=== PATIENT | male | born 1990 | race Caucasian/White ===

== ENCOUNTER 2018-05-06 22:25 | Emergency (ER) | payer SELFPAY ==
[~2018-05-06] VITALS: Ht 180.3 cm; Wt 204.1 kg
[~2018-05-06 22:25] MED LIST: CEFD300C3 PO; NF-ESOM40C PO; PROM5SYR PO
--- OUTSIDE RECORDS SUMMARY | 2018-05-06 22:29 | XMS REPORT ---
Author Author ISHA GHOSH [facility] Address Unknown Care Team Providers Care Manager Home Name Role Phone ISHA GHOSH Unavailable PROBLEMS Type Condition ICD9-CM Code OCO32-WS Code Onset Dates Condition Status SNOMED Code Problem Gastroesophageal reflux disease, esophagitis presence not specified K21.9 Active 993709182 Problem MENINGOCOCCAL DX V03.89 Active 58655789 ALLERGIES No Known Allergies ENCOUNTERS Encounter Location Date Diagnosis [facility] [id number] [place] [id number] Jan, [facility] [id number] [place] [address] [phone] Nov, Dental examination Z01.20 and Caries K02.9 [facility] [id number] [place] [phone] May, Dental examination Z01.20 [facility] [address] [phone] Oct, Gastroesophageal reflux disease, esophagitis presence not specified K21.9 [facility] [id number] [place] [phone] Sep, IMMUNIZATIONS No Known Immunizations SOCIAL HISTORY Never Assessed REASON FOR VISIT PAIN/twest PLAN OF CARE Activity Details Follow Up prn Reason:te #1 VITAL SIGNS Height 71 in 2017-12-17 Blood pressure systolic 138 mmHg 2017-12-17 Blood pressure diastolic 86 mmHg 2017-12-17 MEDICATIONS Medication Instructions Dosage Frequency Start Date End Date Duration Status Nexium 40 mg Orally Once a day, ac 1 capsule Oct, Not- Taking Prilosec OTC 20 MG Orally Once a day 2 tablets 24h Not-Taking Excedrin Migraine 250-250-65 MG Orally every 6 hrs 2 tablets as needed 6h Not-Taking RESULTS No Results PROCEDURES Procedure Date Ordered Result Body Site LTD ORAL EVALUATION - PROBLEM FOCUS Dec 17, 2017 INTRAORL-PERIAPICAL 1 FILM 45121 Dec 17, 2017 PANORAMIC FILM SEE ALSO CODE 04139 Dec 17, 2017 INSTRUCTIONS MEDICATIONS ADMINISTERED No Known Medications MEDICAL (GENERAL) HISTORY Type Description Date Surgical History No Surgical history information
--- OUTSIDE RECORDS SUMMARY | 2018-05-06 22:29 | XMS REPORT ---
Author Author AUGIE ISHA [facility] Address Unknown Care Team Providers Care Singing Teacher Name Role Phone ISHA GHOSH Unavailable PROBLEMS Type Condition ICD9-CM Code SEC62-[place] Code Onset Dates Condition Status SNOMED Code Problem Gastroesophageal reflux disease, esophagitis presence not specified K21.9 Active 584561875 Problem MENINGOCOCCAL DX V03.89 Active [id number] ALLERGIES No Known Allergies ENCOUNTERS Encounter Location Date Diagnosis [facility] [address] [phone] Jan, Caries K02.9 [facility] [address] [id number] Nov, Dental examination Z01.20 and Caries K02.9 [facility] [phone] [place] [phone] May, Dental examination Z01.20 [facility] [address] [phone] Oct, Gastroesophageal reflux disease, esophagitis presence not specified K21.9 [facility] [id number] [place] [address] [phone] Sep, IMMUNIZATIONS No Known Immunizations SOCIAL HISTORY Never Assessed REASON FOR VISIT TE #/ PLAN OF CARE Activity Details Follow Up prn Reason:shikha VITAL SIGNS Height 71 in 2018-01-28 Blood pressure systolic 120 mmHg 2018-01-28 Blood pressure diastolic 79 mmHg 2018-01-28 MEDICATIONS Medication Instructions Dosage Frequency Start Date End Date Duration Status Nexium 40 mg Orally Once a day, ac 1 capsule Oct, Not- Taking Prilosec OTC 20 MG Orally Once a day 2 tablets 24h Not-Taking Excedrin Migraine 250-250-65 MG Orally every 6 hrs 2 tablets as needed 6h Not-Taking RESULTS No Results PROCEDURES Procedure Date Ordered Result Body Site EXTRAC ERUPTED TOOTH/EXPOSED ROOT Jan 28, 2018 INSTRUCTIONS MEDICATIONS ADMINISTERED No Known Medications MEDICAL (GENERAL) HISTORY Type Description Date Surgical History No Surgical history information
--- OUTSIDE RECORDS SUMMARY | 2018-05-06 22:29 | XMS REPORT ---
Author JOSLYN Camacho [facility] eClinicalWorks Address Unknown Phone Unavailable Care Team Providers Care Research Engineer Name Role Phone JOSLYN THORNE CP Unavailable Allergies, Adverse Reactions, Alerts Substance Reaction Event Type N.K.D.A. Info Not Available Non Drug Allergy Problems Problem Type Condition Code Onset Dates Condition Status Problem MENINGOCOCCAL DX V03.89 Active Assessment Gastroesophageal reflux disease, esophagitis presence not specified K21.9 Active Problem Gastroesophageal reflux disease, esophagitis presence not specified K21.9 Active Medications Medication Code System Code Instructions Start Date End Date Status Dosage Excedrin Migraine [facility] [address]-07 250-250-65 MG Orally every 6 hrs 2 tablets as needed Nystatin [facility] [address]-87 - not defined Nexium [facility] [address]-35 40 mg Orally Once a day, ac Oct 29, 2015 1 capsule Prilosec OTC [facility] [address] 20 MG Orally Once a day 2 tablets Procedures Procedure Coding System Code Date Office Visit, New Pt., Level 2 CPT-4 48333 Oct 29, 2015 Vital Signs Date/Time: Oct 29, 2015 Cardiac Monitoring Heart Rate 92 bpm Weight 456.3 lbs Height 71 in BMI 63.63 Index Blood Pressure Diastolic 78 mmHg Blood Pressure Systolic 135 mmHg Results No Known Results Summary Purpose eClinicalWorks Submission
--- NOTE | 2018-05-06 23:15 | NUR ---
PT REFUSES IV INSERTION.
--- NOTE | 2018-05-06 23:37 | ED Abdominal Pain ---
General Chief Complaint: Abdominal/GI Problems Stated Complaint: LOWER LEFT SIDED ABD PAIN Source of Information: Patient, Family ([id number]) Exam Limitations: No Limitations History of Present Illness Date Seen by Provider: May 06, 2018 Time Seen by Provider: 23:20 Initial Comments Patient presents to ER by private conveyance with chief complaint that today he' s been having difficulty having a bowel movement and having a little left-sided abdominal pain so he took a laxative around 7:00 at night and had a small amount of stool passed but not significant. He's had some nausea and dry heaves around 8:00. He said he was having quite a bit of pain that had him curled up in a ball in his bed but after he laid down for a while it got better so he decided to come in because the pain was not letting up. He says he's has abdominal pain secondary to constipation and does have irritable bowel syndrome but this is nothing like that. He has no history of kidney stone. Pains worse with movement. Right now he rates it as about a 1 out of 10 when he sits still. No painful urination or hematuria. No fevers or chills. No nausea presently. No history of abdominal surgeries, colonoscopies. He did take 2 ibuprofen about an hour or 2 before coming in and says that his pain is improving now. Allergies and Home Medications Allergies Coded Allergies: No Known Drug Allergies (Unverified , 11/24/15) Home Medications Cefdinir 300 Mg Capsule, 300 MG PO BID Prescribed by: GUIDO GIRALDO on 11/24/152115 Promethazine HCl/Codeine 5 Ml Syrup, 5 ML PO Q6H PRN for COUGH Prescribed by: GUIDO GIRALDO on 11/24/152115 Patient Home Medication List Home Medication List Reviewed: Yes Review of Systems Review of Systems Constitutional: No chills, No fever, No malaise EENTM: No Blurred Vision, No Double Vision Respiratory: Denies Cough, Denies Shortness of Air Cardiovascular: Denies Chest Pain, Denies Edema Gastrointestinal: Abdominal Pain, Constipated; Denies Diarrhea; Nausea; Denies Poor Fluid Intake, Denies Vomiting Genitourinary: Denies Burning, Denies Discharge, Denies Drainage Musculoskeletal: No back pain, No joint pain Past Agxbihy-Zehuja-Tfhuat Hx Patient Social History Alcohol Use: Denies Use Recreational Drug Use: No Smoking Status: Never a Smoker Recent Foreign Travel: No Contact w/Someone Who Travel: No Recent Hopitalizations: No Seasonal Allergies Seasonal Allergies: No Past Medical History Reproductive Disorders: No Gastroesophageal Reflux Physical Exam Vital Signs Capillary Refill : Height/Weight/BMI Height: 5'11" Weight: 456lbs. oz. 206.389618zp; BMI Method:Stated General Appearance: mild distress, obese (morbid) HEENT: PERRL/EOMI, pharynx normal Respiratory: chest non-tender, lungs clear, normal breath sounds, no respiratory distress, no accessory muscle use Cardiovascular: normal peripheral pulses, regular rate, rhythm, no edema Peripheral Pulses: 2+ Radial Pulses (R), 2+ Radial Pulses (L) Gastrointestinal: normal bowel sounds, non tender, soft Back: normal inspection, CVA tenderness (L) Neurologic/Psychiatric: alert, oriented x 3 Skin: normal color, warm/dry Focused Exam Lactate Level 05/07/18 00:00: Lactic Acid Level 1.60 Lactic Acid Level Laboratory Tests Test 05/07/18 00:00 Lactic Acid Level 1.60 MMOL/L (0.50-2.00) Progress/Results/Core Measures Results/Orders Lab Results Laboratory Tests Test 05/06/18 23:15 05/06/18 23:29 05/07/18 00:00 05/07/18 00:10 Range/Units Urine Color YELLOW Urine Clarity CLEAR Urine pH 5 5-9 Urine Specific [place] 1.030 H 1.016-1.022 Urine Protein 2+ H NEGATIVE Urine Glucose (UA) NEGATIVE NEGATIVE Urine Ketones NEGATIVE NEGATIVE Urine Nitrite NEGATIVE NEGATIVE Urine Bilirubin NEGATIVE NEGATIVE Urine Urobilinogen NORMAL NORMAL MG/DL Urine Leukocyte Esterase NEGATIVE NEGATIVE Urine RBC (Auto) 5+ H NEGATIVE Urine RBC 10-25 H /HPF Urine WBC NONE /HPF Urine Squamous Epithelial Cells 2-5 /HPF Urine Crystals NONE /LPF Urine Bacteria NEGATIVE /HPF Urine Casts NONE /LPF Urine Mucus LARGE H /LPF Urine Culture Indicated CULTURE PENDING White Blood Count 12.4 H 4.3-11.0 10^3/uL Red Blood Count 5.50 4.35-5.85 10^6/uL Hemoglobin 15.7 13.3-17.7 G/DL Hematocrit 46 40-54 % Mean Corpuscular Volume 84 80-99 FL Mean Corpuscular Hemoglobin 29 25-34 PG Mean Corpuscular Hemoglobin Concent 34 32-36 G/DL Red Cell Distribution Width 14.4 10.0-14.5 % Platelet Count 250 130-400 10^3/uL Mean Platelet Volume 13.1 H 7.4-10.4 FL Neutrophils (%) (Auto) 81 H 42-75 % Lymphocytes (%) (Auto) 13 12-44 % Monocytes (%) (Auto) 6 0-12 % Eosinophils (%) (Auto) 0 0-10 % Basophils (%) (Auto) 0 0-10 % Neutrophils # (Auto) 10.0 H 1.8-7.8 X 10^3 Lymphocytes # (Auto) 1.6 1.0-4.0 X 10^3 Monocytes # (Auto) 0.7 0.0-1.0 X 10^3 Eosinophils # (Auto) 0.0 0.0-0.3 10^3/uL Basophils # (Auto) 0.0 0.0-0.1 10^3/uL Sodium Level 140 135-145 MMOL/L Potassium Level 4.3 3.6-5.0 MMOL/L Chloride Level 107 98-107 MMOL/L Carbon Dioxide Level 17 L 21-32 MMOL/L Anion Gap 16 H 5-14 MMOL/L Blood Urea Nitrogen 18 7-18 MG/DL Creatinine 1.30 0.60-1.30 MG/DL Estimat Glomerular Filtration Rate > 60 BUN/Creatinine Ratio 14 Glucose Level 124 H 70-105 MG/DL Calcium Level 10.1 8.5-10.1 MG/DL Corrected Calcium 9.7 8.5-10.1 MG/DL Total Bilirubin 0.5 0.1-1.0 MG/DL Aspartate Amino Transf (AST/SGOT) 29 5-34 U/L Alanine Aminotransferase (ALT/SGPT) 41 0-55 U/L Alkaline Phosphatase 56 40-136 U/L Total Protein 8.2 6.4-8.2 GM/DL Albumin 4.5 3.2-4.5 GM/DL Lactic Acid Level 1.60 0.50-2.00 MMOL/L Prothrombin Time 13.4 12.2-14.7 SEC INR Comment 1.0 0.8-1.4 Activated Partial Thromboplast Time 29 24-35 SEC My Orders Orders - EMMETT RANGEL Cbc With Automated Diff (05/06/18 23:28) Comprehensive Metabolic Panel (05/06/18 23:28) Blood Culture (05/06/18 23:28) Sputum Culture (05/06/18 23:28) Urinalysis (05/06/18 23:28) Urine Culture (05/06/18 23:28) Protime With Inr (05/06/18 23:28) Partial Thromboplastin Time (05/06/18 23:28) Chest 1 View, Ap/Pa Only (05/06/18 23:28) Saline Lock/Iv-Start (05/06/18 23:28) Saline Lock/Iv-Start (05/06/18 23:28) Vital Signs Adult Sepsis Patie Q15M (05/06/18 23:28) O2 (05/06/18 23:28) Remove Rings In Anticipation O (05/06/18:28) Lactic Acid Analyzer (05/06/18 23:28) Influenza A And B Antigens (05/06/18 23:28) Ct Abd/Pelvis Wo(Kidney Stone) (05/07/18 00:01) Progress Progress Note : Time: 23:58 Progress Note Tachycardia and borderline white count so I get a septic workup. Abdomen is benign but I suspect a kidney stone is the source of his symptoms. We'll get a CT of the abdomen and pelvis without contrast. He has refused an IV so we cannot give him IV fluids. He does not have a low blood pressure nor does he appear to be clinically dry. Diagnostic Imaging Diagonstic Imaging: Xray Plain Films/CT/US/NM/MRI: chest (1v) Comments No acute cardiopulmonary process noted. Reviewed: Reviewed by Me Diagonstic Imaging: CT (noncontrasted kidney stone study) Plain Films/CT/US/NM/MRI: abdomen, pelvis Comments Mild obstructive uropathy on the left secondary to 3.5-4 mm left mid ureteral calculus. Reviewed: Reviewed by Me Departure Impression Primary Impression: Left ureteral calculus Disposition: HOME, SELF-CARE Condition: Stable Departure-Patient Inst. Decision time for Depature: 01:10 Referrals: NO,LOCAL PHYSICIAN (PCP) Primary Care Physician STEFANO DESOUZA MD Patient Instructions: Kidney Stones (DC) Add. Discharge Instructions: Drink lots of fluids. Caffeine is okay. Use ibuprofen 800 mg every 8 hours as needed for pain in addition to the hydrocodone one tablet every 6 hours as needed for pain. Take the Flomax 1 tablet every night until the stone passes. Use the Keflex, antibiotic 1 tablet twice a day with food for the next week to prevent infection. Follow-up with Dr. Desouza, urology in the clinic by calling tomorrow morning for an appointment. Take one tablet of Zofran place it on the tongue every 6 hours as needed for nausea or vomiting. Strain all urine to see if you can catch the stone. Sometimes the stone will breakup into a fine sand and you'll miss it but the painful urination and flank pain should go away in one to 2 days after the stone passes. All discharge instructions reviewed with patient and/or family. Voiced understanding. Scripts Tamsulosin HCl (Flomax) 0.4 Mg Cap 0.4 MG PO HS for 7 Days, #7 CAP 0 Refills Prov: EMMETT RANGEL 05/07/18 Ondansetron (Ondansetron Odt) 4 Mg Tab.rapdis 4 MG PO Q6H PRN for NAUSEA/VOMITING, #12 TAB 0 Refills Prov: EMMETT RANGEL 05/07/18 Hydrocodone Bit/Acetaminophen (Hydrocodone/Acetaminophen 5/325mg Tablet) 1 Tab Tab 1-2 EACH PO Q6H PRN for BREAKTHROUGH PAIN MDD 10, #15 TAB 0 Refills Prov: EMMETT RANGEL 05/07/18 Cephalexin (Cephalexin) 500 Mg Tablet 500 MG PO BID for 7 Days, #14 TAB 0 Refills Prov: EMMETT RANGEL 05/07/18 Copy Copies To 1: STEFANO DESOUZA MD, TITUS J May 06, 2018 23:37
[2018-05-06 23:40] LABS: BASOPHILS % (AUTO) 0 % (0-10); EOSINOPHILS % (AUTO) 0 % (0-10); HEMATOCRIT 46 % (40-54); HEMOGLOBIN 15.7 G/DL (13.3-17.7); LYMPHOCYTES # (AUTO) 1.6 X 10^3 (1.0-4.0); LYMPHOCYTES % (AUTO) 13 % (12-44); MEAN CORPUSCULAR HEMOGLOBIN 29 PG (25-34); MEAN CORPUSCULAR HGB CONC 34 G/DL (32-36); MEAN CORPUSCULAR VOLUME 84 FL (80-99); MEAN PLATELET VOLUME 13.1 FL (7.4-10.4); MONOCYTES # (AUTO) 0.7 X 10^3 (0.0-1.0); MONOCYTES % (AUTO) 6 % (0-12); NEUTROPHILS % (AUTO) 81 % (42-75); PLATELET COUNT 250 10^3/uL (130-400); RED CELL DISTRIBUTION WIDTH 14.4 % (10.0-14.5); WHITE BLOOD COUNT 12.4 10^3/uL (4.3-11.0)
[2018-05-06 23:41] LABS: BILIRUBIN,URINE NEGATIVE (NEGATIVE); CLARITY,URINE CLEAR; COLOR,URINE YELLOW; GLUCOSE, URINE (UA) NEGATIVE (NEGATIVE); KETONES,URINE NEGATIVE (NEGATIVE); LEUKOCYTE ESTERASE ,URINE NEGATIVE (NEGATIVE); NITRITE,URINE NEGATIVE (NEGATIVE); PH,URINE 5 (5-9); PROTEIN,URINE 2+ (NEGATIVE); UROBILINOGEN,URINE NORMAL (NORMAL)
[2018-05-06 23:48] LABS: BACTERIA,URINE NEGATIVE /HPF
[2018-05-07 00:01] LABS: ALANINE AMINOTRANSFERASE 41 U/L (0-55); ALBUMIN 4.5 GM/DL (3.2-4.5); ALKALINE PHOSPHATASE 56 U/L (40-136); BILIRUBIN,TOTAL 0.5 MG/DL (0.1-1.0); BUN/CREATININE RATIO 14; CALCIUM 10.1 MG/DL (8.5-10.1); CARBON DIOXIDE 17 MMOL/L (21-32); CHLORIDE 107 MMOL/L (98-107); GFR ESTIMATED > 60; GLUCOSE 124 MG/DL (70-105); POTASSIUM 4.3 MMOL/L (3.6-5.0); SODIUM 140 MMOL/L (135-145); TOTAL PROTEIN 8.2 GM/DL (6.4-8.2)
[2018-05-07 00:28] LABS: PROTHROMBIN TIME PATIENT 13.4 SEC (12.2-14.7)
[2018-05-07] MEDS ORDERED: cefTRIAXone FOR IV USE 1,000 MG in WATER (STERILE) FOR INJECTION 10 ML IV ONE (01:15)
[2018-05-07] MEDS ORDERED: TAMS0.4C98 PO (01:19)
[2018-05-07] MEDS ORDERED: ONDA4TAB11 PO (01:19)
[2018-05-07] MEDS ORDERED: CEPH500T PO (01:19)
[2018-05-07] MEDS ORDERED: ACHD5005 PO (01:19)
[2018-05-07] MEDS ORDERED: cefTRIAXone 1,000 MG/2.86 ml vial (IM ONLY) ONE (01:23)
[2018-05-07] MEDS ORDERED: RX-HYDROCODONE/APAP 5/325 MG #4 TAB PK PO PRN (01:30)
[2018-05-07] MEDS ORDERED: LIDOCAINE 1% INJ 20 ML 20 ML VIAL INJ ONE (01:30)
[2018-05-07 02:00] VITALS: BP 155/109
--- NOTE | 2018-05-07 05:46 | Diagnostic Imaging Report ---
INDICATION: Abdominal pain. COMPARISON: 11/24/2015 FINDINGS: Frontal and lateral views of the chest demonstrate normal heart size and pulmonary vascularity. The lungs are clear. There are no signs of infiltrate, pleural effusions or pneumothoraces. The visualized osseous structures show no acute abnormalities. IMPRESSION: 1. No acute process. No signs of infiltrates, effusions or pneumothoraces. Dictated by: Dictated on workstation # [id number]
--- NOTE | 2018-05-07 06:21 | Diagnostic Imaging Report ---
PROCEDURE: CT urinary tract, rule out kidney stone. TECHNIQUE: Multiple contiguous axial images were obtained through the abdomen and pelvis without the use of intravenous contrast. INDICATION: Left lower quadrant abdominal pain. COMPARISON: Included portions of the lung bases are clear. CT ABDOMEN: There is mild left-sided hydronephrosis. This is secondary to 3 mm calculus within the proximal left ureter (image 78, series 2). Multiple additional punctate nonobstructive renal calculi identified bilaterally. No calculi are seen along the course of the right ureter. Additionally, there is no hydroureteronephrosis or other evidence of obstruction on the right. Renal parenchyma is unremarkable on this noncontrast exam. The kidneys, adrenal glands, spleen, and pancreas have an unremarkable noncontrast CT appearance as well. There is diffuse hypodense appearance of the hepatic parenchyma consistent with hepatic steatosis. There is no loculated fluid collection, free fluid, nor free air within the abdomen. No abnormal mesenteric or retroperitoneal adenopathy is seen. There is normal appendix. Small bowel loops are nondistended. Bony structures show no gross acute abnormalities. CT PELVIS: Urinary bladder is unopacified. No calculi are seen within urinary bladder. There is mildly thickened appearance of the urinary bladder wall. There is no loculated fluid collection, free fluid, nor free air within the pelvis. No abnormal lymph nodes are identified. Bony structures show no acute abnormalities. IMPRESSION: 1. Small 3 mm calculus within the proximal left ureter resulting in mild proximal hydronephrosis. 2. Multiple additional bilateral nonobstructive punctate renal calculi. 3. Hepatic steatosis. 4. Thickened appearance of the urinary bladder wall. This may be artifactual and related to incomplete distention. Findings, however, may also be seen with underlying cystitis. Clinical correlation recommended. Dictated by: Dictated on workstation # [id number]
[2018-05-07] MEDS ORDERED: cefTRIAXone 1,000 MG/2.86 ml vial (IM ONLY) IM SCH (09:00)
== END 2018-05-07 02:00 | disposition home or self-care (01) ==
LOC: EDUNIT# 22:25 → ER 22:26
DX: N13.2 Hydronephrosis with renal and ureteral calculous obstruction (principal); K21.9 Gastro-esophageal reflux disease without esophagitis
CPT/HCPCS: 36415; 71045; 74176; 80053; 81000; 83605; 85025; 85610; 85730; 87040; 87088

== ENCOUNTER 2019-01-01 19:29 | Emergency (ER) | payer SELFPAY ==
[~2019-01-01] VITALS: Ht 177.8 cm; Wt 193.8 kg
[~2019-01-01 19:29] MED LIST changes: +ACHD5005 PO; +CEPH500T PO; +ONDA4TAB11 PO; +TAMS0.4C98 PO
[2019-01-01] MEDS ORDERED: ASPIRIN 81 MG CHEW (CHILDREN'S ASA) ONE (19:43)
[2019-01-01] MEDS ORDERED: ONDANSETRON 4 MG/2 ML (SDV) Z0FRAN IVP ONE (19:45)
[2019-01-01] MEDS ORDERED: ASPIRIN 81 MG CHEW (CHILDREN'S ASA) PO ONE (19:45)
[2019-01-01 19:49] LABS: BASOPHILS % (AUTO) 0 % (0-10); EOSINOPHILS # (AUTO) 0.2 10^3/uL (0.0-0.3); EOSINOPHILS % (AUTO) 2 % (0-10); HEMATOCRIT 45 % (40-54); HEMOGLOBIN 14.9 G/DL (13.3-17.7); LYMPHOCYTES # (AUTO) 1.9 X 10^3 (1.0-4.0); LYMPHOCYTES % (AUTO) 20 % (12-44); MEAN CORPUSCULAR HEMOGLOBIN 28 PG (25-34); MEAN CORPUSCULAR HGB CONC 33 G/DL (32-36); MEAN CORPUSCULAR VOLUME 83 FL (80-99); MEAN PLATELET VOLUME 13.1 FL (7.4-10.4); MONOCYTES # (AUTO) 0.7 X 10^3 (0.0-1.0); MONOCYTES % (AUTO) 7 % (0-12); NEUTROPHILS # (AUTO) 6.8 X 10^3 (1.8-7.8); NEUTROPHILS % (AUTO) 71 % (42-75); PLATELET COUNT 226 10^3/uL (130-400); RED CELL DISTRIBUTION WIDTH 14.7 % (10.0-14.5); WHITE BLOOD COUNT 9.6 10^3/uL (4.3-11.0)
[2019-01-01 19:58] LABS: PROTHROMBIN TIME PATIENT 13.4 SEC (12.2-14.7)
--- NOTE | 2019-01-01 20:05 | ED Chest Pain ---
General Chief Complaint: Chest Pain Stated Complaint: CHEST PAIN,NAUSEA Nursing Triage Note: HAS CHEST PAIN THAT STARTED ON THURSDAY, PT STATES THE PAIN COMES AND GOES, PAIN DOES CHANGE DEPENDING ON WHAT POSITION HE IS IN Nursing Sepsis Screen: No Definite Risk Source: patient History of Present Illness Date Seen by Provider: Jan 01, 2019 Time Seen by Provider: 19:35 Initial Comments PT ARRIVES VIA POV FROM HOME C/O CHEST PAIN SINCE Thursday12/27/18 STATES PAIN IS IN CENTER OF CHEST, IS WORSE WITH CERTAIN POSITIONS + NAUSEA SINCE LAST PM, NO VOMITING HAS BEEN VERY SHORT OF BREATH NO FEVER HAS HAD NON PRODUCTIVE COUGH ALL WEEK STATES HE HAS BEEN BURPING ALOT NO SWELLING IN LEGS/ FEET OR PAIN IN CALVES STATES HE HAD SIMILAR YEARS AGO AND WAS A PULLED MUSCLE IN HIS CHEST AFTER SNEEZING. PT DENIES ANY RECENT INJURY OR SIMILAR PT HAS NOT SOUGHT CARE UNTIL TODAY SYMPTOMS NO DIFFERENT TODAY TOOK 1 TUMS TODAY, OTHERWISE HAS NOT TAKEN ANYTHING FOR SYMPTOMS AT ANY TIME PCP: NONE--STATES "NO JOB, NO INSURANCE" Allergies and Home Medications Allergies Coded Allergies: No Known Drug Allergies (Unverified , 11/24/15) Home Medications Azithromycin 500 Mg Tablet, 500 MG PO DAILY FOR INFECTION Prescribed by: NABIL LEBLANC on 01/01/192151 Cefdinir 300 Mg Capsule, 300 MG PO BID Prescribed by: GUIDO GIRALDO on 11/24/152115 Cefdinir 300 Mg Capsule, 300 MG PO BID Prescribed by: NABIL LEBLANC on 01/01/192151 Cephalexin 500 Mg Tablet, 500 MG PO BID Prescribed by: EMMETT RANGEL on 05/07/18118 Guaifenesin/Dextromethorphan 1 Each Tbmp.12hr, 1 EACH PO BID Prescribed by: NABIL LEBLANC on 01/01/192151 Hydrocodone Bit/Acetaminophen 1 Tab Tab, 1-2 EACH PO Q6H PRN for BREAKTHROUGH PAIN Prescribed by: EMMETT RANGEL on 05/07/18118 Methylprednisolone 4 Mg Tab.ds.pk, 4 MG PO UD Prescribed by: NABIL LEBLANC on 01/01/192151 Ondansetron 4 Mg Tab.rapdis, 4 MG PO Q6H PRN for NAUSEA/VOMITING Prescribed by: EMMETT RANGEL on 05/07/18118 Promethazine HCl/Codeine 5 Ml Syrup, 5 ML PO Q6H PRN for COUGH Prescribed by: GUIDO GIRALDO on 11/24/152115 Tamsulosin HCl 0.4 Mg Cap, 0.4 MG PO HS Prescribed by: EMMETT RANGEL on 05/07/18 0119 Patient Home Medication List Home Medication List Reviewed: Yes Review of Systems Review of Systems Constitutional: no symptoms reported; No fever EENTM: No Symptoms Reported Respiratory: See HPI, Cough, Shortness of Air Cardiovascular: See HPI, Chest Pain; Denies Edema, Denies Lightheadedness, Denies Palpitations, Denies Syncope Gastrointestinal: See HPI; Denies Abdominal Pain; Nausea; Denies Vomiting Genitourinary: No Symptoms Reported Musculoskeletal: no symptoms reported; No back pain Skin: no symptoms reported Psychiatric/Neurological: Anxiety Endocrine: No Symptoms Reported Hematologic/Lymphatic: No Symptoms Reported Past Xyacnxa-Dbgkuc-Mudyvw Hx Patient Social History Alcohol Use: Denies Use Recreational Drug Use: No Smoking Status: Never a Smoker 2nd Hand Smoke Exposure: No Recent Foreign Travel: No Contact w/Someone Who Travel: No Recent Infectious Disease Expo: No Recent Hopitalizations: No Seasonal Allergies Seasonal Allergies: No Past Medical History Surgeries: No Respiratory: No Cardiac: No Neurological: No Reproductive Disorders: No Genitourinary: Yes Kidney Stones Gastrointestinal: Yes Gastroesophageal Reflux Musculoskeletal: No Endocrine: Yes (MORBID OBESITY--> 400 LBS. ) HEENT: Yes (POOR DENTITION) Cancer: No Psychosocial: No Integumentary: No Blood Disorders: No Physical Exam Vital Signs Vital Signs - First Documented 01/01/19 01/01/19 19:34 22:07 Temp 37.4 Pulse 91 Resp 18 B/P (MAP) 172/116 (134) Pulse Ox 98 O2 Delivery Room Air Capillary Refill : Less Than 3 Seconds Height, Weight, BMI Height: 5'11.00" Weight: 450lbs. oz. 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 Norm as Tested Skin: Normal Color, Warm/Dry Focused Exam Lactate Level 01/01/19 20:00: Lactic Acid Level 1.36 Lactic Acid Level Laboratory Tests Test 01/01/19 20:00 Lactic Acid Level 1.36 MMOL/L (0.50-2.00) Progress/Results/Core Measures Results/Orders Lab Results Laboratory Tests Test 01/01/19 19:39 01/01/19 20:00 01/01/19 21:06 Range/Units White Blood Count 9.6 4.3-11.0 10^3/uL Red Blood Count 5.40 4.35-5.85 10^6/uL Hemoglobin 14.9 13.3-17.7 G/DL Hematocrit 45 40-54 % Mean Corpuscular Volume 83 80-99 FL Mean Corpuscular Hemoglobin 28 25-34 PG Mean Corpuscular Hemoglobin Concent 33 32-36 G/DL Red Cell Distribution Width 14.7 H 10.0-14.5 % Platelet Count 226 130-400 10^3/uL Mean Platelet Volume 13.1 H 7.4-10.4 FL Neutrophils (%) (Auto) 71 42-75 % Lymphocytes (%) (Auto) 20 12-44 % Monocytes (%) (Auto) 7 0-12 % Eosinophils (%) (Auto) 2 0-10 % Basophils (%) (Auto) 0 0-10 % Neutrophils # (Auto) 6.8 1.8-7.8 X 10^3 Lymphocytes # (Auto) 1.9 1.0-4.0 X 10^3 Monocytes # (Auto) 0.7 0.0-1.0 X 10^3 Eosinophils # (Auto) 0.2 0.0-0.3 10^3/uL Basophils # (Auto) 0.0 0.0-0.1 10^3/uL Prothrombin Time 13.4 12.2-14.7 SEC INR Comment 1.0 0.8-1.4 Activated Partial Thromboplast Time 29 24-35 SEC Sodium Level 144 135-145 MMOL/L Potassium Level 3.6 3.6-5.0 MMOL/L Chloride Level 108 H 98-107 MMOL/L Carbon Dioxide Level 23 21-32 MMOL/L Anion Gap 13 5-14 MMOL/L Blood Urea Nitrogen 14 7-18 MG/DL Creatinine 1.11 0.60-1.30 MG/DL Estimat Glomerular Filtration Rate > 60 BUN/Creatinine Ratio 13 Glucose Level 99 70-105 MG/DL Calcium Level 9.5 8.5-10.1 MG/DL Corrected Calcium 9.2 8.5-10.1 MG/DL Magnesium Level 2.1 1.6-2.4 MG/DL Total Bilirubin 0.5 0.1-1.0 MG/DL Aspartate Amino Transf (AST/SGOT) 23 5-34 U/L Alanine Aminotransferase (ALT/SGPT) 46 0-55 U/L Alkaline Phosphatase 57 40-136 U/L Total Creatine Kinase 165 30-200 U/L Creatine Kinase MB 0.5 <6.6 NG/ML Troponin I < 0.028 <0.028 NG/ML B-Type Natriuretic Peptide < 10.0 <100.0 PG/ML Total Protein 7.9 6.4-8.2 GM/DL Albumin 4.4 3.2-4.5 GM/DL Amylase Level 30 25-125 U/L Lipase 23 8-78 U/L TSH [place] Testing 1.33 0.35-4.94 UIU/ML Serum Alcohol < 10 <10 MG/DL Lactic Acid Level 1.36 0.50-2.00 MMOL/L Urine Color YELLOW Urine Clarity CLEAR Urine pH 6 5-9 Urine Specific [facility] 1.025 H 1.016-1.022 Urine Protein 1+ H NEGATIVE Urine Glucose (UA) NEGATIVE NEGATIVE Urine Ketones NEGATIVE NEGATIVE Urine Nitrite NEGATIVE NEGATIVE Urine Bilirubin NEGATIVE NEGATIVE Urine Urobilinogen NORMAL NORMAL MG/DL Urine Leukocyte Esterase NEGATIVE NEGATIVE Urine RBC (Auto) NEGATIVE NEGATIVE Urine RBC NONE /HPF Urine WBC NONE /HPF Urine Squamous Epithelial Cells RARE /HPF Urine Crystals NONE /LPF Urine Bacteria TRACE /HPF Urine Casts NONE /LPF Urine Mucus MODERATE H /LPF Urine Culture Indicated NO Urine Opiates Screen NEGATIVE NEGATIVE Urine Oxycodone Screen NEGATIVE NEGATIVE Urine Methadone Screen NEGATIVE NEGATIVE Urine Propoxyphene Screen NEGATIVE NEGATIVE Urine Barbiturates Screen NEGATIVE NEGATIVE Ur Tricyclic Antidepressants Screen NEGATIVE NEGATIVE Urine Phencyclidine Screen NEGATIVE NEGATIVE Urine Amphetamines Screen NEGATIVE NEGATIVE Urine Methamphetamines Screen NEGATIVE NEGATIVE Urine Benzodiazepines Screen NEGATIVE NEGATIVE Urine Cocaine Screen NEGATIVE NEGATIVE Urine Cannabinoids Screen NEGATIVE NEGATIVE Micro Results Microbiology 01/01/19 Influenza Types A,B Antigen (KAREN) - Final, Complete My Orders Orders - NABIL LEBLANC DO Ekg Tracing (01/01/19 19:36) Monitor-Rhythm Ecg Trace Only (01/01/19 19:36) Alcohol (01/01/19 19:40) Amylase (01/01/19 19:40) BNP (01/01/19 19:40) Cbc With Automated Diff (01/01/19 19:40) Comprehensive Metabolic Panel (01/01/19 19:40) Creatine Kinase (01/01/19 19:40) Creatine Kinase Mb (01/01/19 19:40) Drug Screen Stat (Urine) (01/01/19 19:40) Lactic Acid Analyzer (01/01/19:40) Lipase (01/01/19 19:40) Magnesium (01/01/19 19:40) Protime With Inr (01/01/19:40) Partial Thromboplastin Time (01/01/19 19:40) Thyroid Analyzer (01/01/19 19:40) Ua Culture If Indicated (01/01/19 19:40) Blood Culture (01/01/19 19:40) Influenza A And B Antigens (01/01/19 19:40) Troponin I (01/01/19 19:40) Ed Iv/Invasive Line Start (01/01/19 19:40) Aspirin Chewable Tablet (Baby Aspirin Ch (01/01/19 19:45) Chest Pa/Lat (2 View) (01/01/19 19:40) Ondansetron Injection (Zofran Injectio (01/01/19 19:45) Aspirin Chewable Tablet (Baby Aspirin Ch (01/01/19 19:43) Cefdinir Capsule (Omnicef Capsule) (01/01/19 22:00) Azithromycin Tablet (Zithromax Tablet) (01/01/19 22:00) Medications Given in ED Current Medications Medications Dose Ordered Sig/Vahid Route Start Time Stop Time Status Last Admin Dose Admin Aspirin 324 mg ONCE ONCE PO 01/01/19 19:45 01/01/19 19:46 DC 01/01/19 19:45 324 MG Azithromycin 500 mg ONCE ONCE PO 01/01/19 22:00 01/01/19 22:01 DC 01/01/19 22:05 500 MG Cefdinir 300 mg ONCE ONCE PO 01/01/19 22:00 01/01/19 22:01 DC 01/01/19 22:05 300 MG Ondansetron HCl 4 mg ONCE ONCE IVP 01/01/19 19:45 01/01/19 19:46 DC 01/01/19 19:46 4 MG Vital Signs/I&O 01/01/19 01/01/19 01/01/19 19:34 19:34 22:07 Temp 37.4 36.7 Pulse 91 86 Resp 18 18 B/P (MAP) 172/116 (134) 137/94 Pulse Ox 98 O2 Delivery Room Air Room Air Blood Pressure Mean: 134 Progress Progress Note : Progress Note HEART RATE DOWN SHORTLY AFTER ARRIVAL SYMPTOMS RESOLVED WITHOUT TREATMENT DURING ER STAY NO COUGH NOTED AT ANY TIME NO C/O DYSPNEA OR CHEST PAIN DURING ENTIRE ER STAY PT ADVISED OF IMPORTANCE OF FOLLOW UP WITH FOR FURTHER EVALUATION OF ELEVATED BLOOD PRESSURE. LOCAL PHYSICIAN LIST GIVEN TO PT. Initial ECG Impression Date: Jan 01, 2019 Initial ECG Impression Time: 19:33 Initial ECG Rate: 91 Initial ECG Rhythm: Normal Sinus Diagnostic Imaging Comments CXR--POSSIBLE BASILAR INFILTRATES POSTERIORLY ON LATERAL VIEW, PER RADIOLOGIST REPORT Reviewed: Reviewed by Me Departure Impression Primary Impression: Chest wall pain Additional Impressions: Pneumonia HTN (hypertension) Disposition: 01 HOME, SELF-CARE Condition: Improved Departure-Patient Inst. Referrals: NO,LOCAL PHYSICIAN (PCP/Family) Primary Care Physician Patient Instructions: Chest Pain That Is Not Caused by the Heart (DC), High Blood Pressure (DC), Pneumonia, Adult (DC) Add. Discharge Instructions: HOME, REST TYLENOL AND MOTRIN NEEDED FOR PAIN FOLLOW UP WITH IN 2-3 DAYS FOR FURTHER CARE, RETURN TO ER IF WORSE All discharge instructions reviewed with patient and/or family. Voiced unde rstanding. Scripts Methylprednisolone (Medrol) 4 Mg Tab.ds.pk 4 MG PO UD, #1 PKG Prov: NABIL LEBLANC DO 01/01/19 Guaifenesin/Dextromethorphan (Mucinex Dm ER 1,200-60 mg Tab) 1 Each Tbmp.12hr 1 EACH PO BID for 10 Days, #20 EA Prov: NABIL LEBLANC DO 01/01/19 Azithromycin (Zithromax) 500 Mg Tablet 500 MG PO DAILY, #5 TAB FOR INFECTION Prov: NABIL LEBLANC DO 01/01/19 Cefdinir (Cefdinir) 300 Mg Capsule 300 MG PO BID for FOR INFECTION, #20 CAP Prov: NABIL LEBLANC DO 01/01/19 NABIL LEBLANC DO Jan 01, 2019 20:05
[2019-01-01 20:12] LABS: ALANINE AMINOTRANSFERASE 46 U/L (0-55); ALBUMIN 4.4 GM/DL (3.2-4.5); ALKALINE PHOSPHATASE 57 U/L (40-136); AMYLASE 30 U/L (25-125); BILIRUBIN,TOTAL 0.5 MG/DL (0.1-1.0); BUN/CREATININE RATIO 13; CALCIUM 9.5 MG/DL (8.5-10.1); CARBON DIOXIDE 23 MMOL/L (21-32); CHLORIDE 108 MMOL/L (98-107); CREATINE KINASE 165 U/L (30-200); CREATININE SERUM 1.11 MG/DL (0.60-1.30); GFR ESTIMATED > 60; GLUCOSE 99 MG/DL (70-105); LIPASE 23 U/L (8-78); MAGNESIUM 2.1 MG/DL (1.6-2.4); POTASSIUM 3.6 MMOL/L (3.6-5.0); SODIUM 144 MMOL/L (135-145); TOTAL PROTEIN 7.9 GM/DL (6.4-8.2)
--- NOTE | 2019-01-01 20:24 | NUR ---
pt to radiology to obtain images
[2019-01-01 20:39] LABS: CREATINE KINASE MB 0.5 NG/ML (<6.6); TSH (THYROID ANALYZER) 1.33 UIU/ML (0.35-4.94)
--- NOTE | 2019-01-01 21:02 | Diagnostic Imaging Report ---
INDICATION: Chest pain. EXAMINATION: PA and lateral views of the chest were obtained at 8:21 p.m. FINDINGS: Heart and mediastinal silhouette are normal in appearance. There is some questionable infiltrate in the lung bases on the lateral view, posteriorly. There is no pneumothorax or pleural fluid. IMPRESSION: Questionable infiltrate in the lung bases, posteriorly, on the lateral view. No pneumothorax or pleural fluid. The heart is normal in size. Dictated by: Dictated on workstation # [id number]
[2019-01-01 21:13] LABS: BILIRUBIN,URINE NEGATIVE (NEGATIVE); CLARITY,URINE CLEAR; COLOR,URINE YELLOW; GLUCOSE, URINE (UA) NEGATIVE (NEGATIVE); KETONES,URINE NEGATIVE (NEGATIVE); LEUKOCYTE ESTERASE ,URINE NEGATIVE (NEGATIVE); NITRITE,URINE NEGATIVE (NEGATIVE); PH,URINE 6 (5-9); PROTEIN,URINE 1+ (NEGATIVE); UROBILINOGEN,URINE NORMAL (NORMAL)
[2019-01-01 21:22] LABS: BACTERIA,URINE TRACE /HPF; SQUAMOUS EPITHELIAL CELL,UR RARE /HPF
[2019-01-01 21:25] LABS: AMPHETAMINE SCREEN, URINE NEGATIVE (NEGATIVE); BARBITURATE SCREEN URINE NEGATIVE (NEGATIVE); BENZODIAZEPINES SCREEN URINE NEGATIVE (NEGATIVE); CANNABINOID SCREEN, URINE NEGATIVE (NEGATIVE); COCAINE SCREEN URINE NEGATIVE (NEGATIVE); METHADONE STAT NEGATIVE (NEGATIVE); METHAMPHETAMINE SCREEN URINE S NEGATIVE (NEGATIVE); OPIATE SCREEN URINE NEGATIVE (NEGATIVE); OXYCODONE STAT NEGATIVE (NEGATIVE); PROPOXYPHENE STAT NEGATIVE (NEGATIVE); TRICYCLIC ANTIDEPRESSANTS SCRE NEGATIVE (NEGATIVE)
[2019-01-01] MEDS ORDERED: METH4TAB PO (21:52)
[2019-01-01] MEDS ORDERED: CEFD300C3 PO (21:52)
[2019-01-01] MEDS ORDERED: AZIT500T PO (21:52)
[2019-01-01] MEDS ORDERED: GUAI1TBM19 PO (21:52)
[2019-01-01] MEDS ORDERED: CEFDINIR 300 MG (OMNICEF) CAP PO ONE (22:00)
[2019-01-01] MEDS ORDERED: AZITHROMYCIN 250 MG TAB (ZITHROMAX) PO ONE (22:00)
[2019-01-01 22:07] VITALS: BP 137/94
== END 2019-01-01 22:07 | disposition home or self-care (01) ==
LOC: EDUNIT# 19:29 → ER 19:30
DX: R07.89 Other chest pain (principal); J18.9 Pneumonia, unspecified organism; I10 Essential (primary) hypertension; K21.9 Gastro-esophageal reflux disease without esophagitis; E66.01 Morbid (severe) obesity due to excess calories; Z87.442 Personal history of urinary calculi; Z68.44 Body mass index [BMI] 60.0-69.9, adult
CPT/HCPCS: 36415; 71046; 80053; 80306; 80320; 81000; 82150; 82550; 82553; 83605; 83690; 83735; 83880; 84443; 84484; 85025; 85610; 85730; 87040; 87804; 93005; 93041

== ENCOUNTER 2019-07-30 16:24 | Emergency (ER) | payer SELFPAY ==
[~2019-07-30] VITALS: Ht 180 cm; Wt 175.0 kg
[~2019-07-30 16:24] MED LIST changes: +AZIT500T PO; +GUAI1TBM19 PO; +METH4TAB PO; -TAMS0.4C98 PO; +TMSL.4C PO
[2019-07-30 16:51] LABS: BASOPHILS % (AUTO) 1 % (0-10); EOSINOPHILS # (AUTO) 0.2 10^3/uL (0.0-0.3); EOSINOPHILS % (AUTO) 2 % (0-10); HEMATOCRIT 46 % (40-54); HEMOGLOBIN 14.9 G/DL (13.3-17.7); LYMPHOCYTES # (AUTO) 2.3 X 10^3 (1.0-4.0); LYMPHOCYTES % (AUTO) 30 % (12-44); MEAN CORPUSCULAR HEMOGLOBIN 27 PG (25-34); MEAN CORPUSCULAR HGB CONC 33 G/DL (32-36); MEAN CORPUSCULAR VOLUME 84 FL (80-99); MEAN PLATELET VOLUME 13.2 FL (7.4-10.4); MONOCYTES # (AUTO) 0.7 X 10^3 (0.0-1.0); MONOCYTES % (AUTO) 8 % (0-12); NEUTROPHILS # (AUTO) 4.6 X 10^3 (1.8-7.8); NEUTROPHILS % (AUTO) 59 % (42-75); PLATELET COUNT 200 10^3/uL (130-400); RED CELL DISTRIBUTION WIDTH 14.2 % (10.0-14.5); WHITE BLOOD COUNT 7.8 10^3/uL (4.3-11.0)
--- NOTE | 2019-07-30 16:53 | ED Chest Pain ---
General Chief Complaint: Chest Pain Stated Complaint: CP/SOB/COUGH Source: patient History of Present Illness Date Seen by Provider: July 30, 2019 Time Seen by Provider: 16:25 Initial Comments PT ARRIVES VIA POV FROM HOME C/O CHEST PAIN SINCE LAST DECEMBER STATES PAIN IS SHARP AND STABBING AND MOVES ALL OVER H IS CHEST AND COMES AND GOES STATES ""WHENEVER MY CHEST HURTS, I JUST ROLL OVER AND GO TO SLEEP AND IT GOES AWAY" STATES HE IS NOT HAVING ANY PAIN AT ALL RIGHT NOW STATES PAIN IS "ANYWHERE FROM A 4 TO AN 8" "SOMETIMES IT'S LIKE SOMEONE JUST JABBED ME REAL QUICK" PAIN IS DEPENDENT ON CERTAIN POSITIONS OR MOVEMENTS STATES PAIN IS NOT ANY DIFFERENT TODAY IN ANYWAY STATES TODAY HE STARTED HAVING THE PAIN AND IT DID NOT GO AWAY WHEN HE ROLLED OVER, "AND THEN I HAD AN ABSOLUTE PANIC ATTACK AND I WENT INTO THE BATHROOM AND I STARTED TO GET SICK TO MY STOMACH AND I STARTED HYPERVENTILATING REAL BAD AND IT CALMED DOWN, AND IT WENT AWAY, AND THEN IT ALL CAME BACK AGAIN" STATES "IT FEELS LIKE MY HY HEART IS BEATING A BAZILLION TIMES A MINUTE RIGHT NOW" ( HR IS 90 ) STATES THIS STARTED 1 1/2-2 HOURS AGO STATES HE WAS SEEN HERE LAST DECEMBER FOR THIS PAIN AND DX WITH PNEUMONIA STATES THE PAIN NEVER WENT AWAY DID NOT SEEK CARE WITH ANYONE OR FOLLOW UP WITH ANYONE UNTIL A COUPLE OF WEEKS AGO, AND WENT TO [facility] AND HAD LAB, EKG AND CXR WAS TOLD HE STILL HAD PNEUMONIA AND TREATED WITH UNKNOWN ANTIBIOTIC AND FINISHED IT 2 DAYS AGO STATES PAIN DID NOT GET BETTER STATES HE HAS NOT BEEN SEEN BY A BUNCH BREAKER, BUT HAS BEEN REFERRED TO ONE. STATES THAT THE PAIN IN DECEMBER STARTED EXACTLY AT THE SAME TIME HIS FATHER WAS HAVING CHEST PAIN AND FATHER WAS DX WITH AN [facility] AND DURING HEART SURGERY IN DECEMBER STATES HIS PAIN HAS NEVER WENT AWAY SINCE DECEMBER HAS TAKEN IBUPROFEN 600 MG WITHOUT RELIEF STATES HE HAS HAD A NON-PRODUCTIVE COUGH SINCE DECEMBER--IS NO DIFFERENT TODAY HAS NOT TAKEN ANYTHING FOR COUGH ONLY TIME HE FEELS SHORT OF BREATH IS WHEN HE IS HAVING A PANIC ATTACK. AND IS NOT SHORT OF BREATH NOW. NO SWELLING IN LEGS/FEET OR PAIN IN CALVES OF NOTE, PT TAKES LISINOPRIL FOR HTN NO FEVER/SWEATS/CHILLS NO KNOWN EXPOSURE TO COVID-19 PT DOES NOT WORK, DOES NOT DRIVE AND STATES HE DOES NOT HAVE AN ID OF ANY KIND PCP: [facility] Allergies and Home Medications Allergies Coded Allergies: No Known Drug Allergies (Unverified , 11/24/15) Home Medications Azithromycin 500 Mg Tablet, 500 MG PO DAILY FOR INFECTION Prescribed by: NABIL LEBLANC on 01/01/192151 Benzonatate 100 Mg Capsule, 100-200 MG PO TID Prescribed by: NABIL LEBLANC on 07/30/191753 Cefdinir 300 Mg Capsule, 300 MG PO BID Prescribed by: GUIDO GIRALDO on 11/24/152115 Cefdinir 300 Mg Capsule, 300 MG PO BID Prescribed by: NABIL LEBLANC on 01/01/192151 Cephalexin 500 Mg Tablet, 500 MG PO BID Prescribed by: EMMETT RANGEL on 05/07/18118 Guaifenesin/Dextromethorphan 1 Each Tbmp.12hr, 1 EACH PO BID Prescribed by: NABIL LEBLANC on 01/01/192151 Hydrocodone Bit/Acetaminophen 1 Tab Tab, 1-2 EACH PO Q6H PRN for BREAKTHROUGH PAIN Prescribed by: EMMETT RANGEL on 05/07/18118 Hydroxyzine Pamoate 50 Mg Capsule, 50 MG PO Q6H PRN for ANXIETY Prescribed by: NABIL LEBLANC on 07/30/191746 Meloxicam 15 Mg Tablet, 15 MG PO DAILY Prescribed by: NABIL LEBLANC on 07/30/191746 Methylprednisolone 4 Mg Tab.ds.pk, 4 MG PO UD Prescribed by: NABIL LEBLANC on 01/01/192151 Ondansetron 4 Mg Tab.rapdis, 4 MG PO Q6H PRN for NAUSEA/VOMITING Prescribed by: EMMETT RANGEL on 05/07/18118 Pantoprazole Sodium 40 Mg Tablet.dr, 40 MG PO DAILY Prescribed by: NABIL LEBLANC on 07/30/191746 Promethazine HCl/Codeine 5 Ml Syrup, 5 ML PO Q6H PRN for COUGH Prescribed by: GUIDO GIRALDO on 11/24/152115 Tamsulosin HCl 0.4 Mg Cap, 0.4 MG PO HS Prescribed by: EMMETT RANGEL on 05/07/18118 Patient Home Medication List Home Medication List Reviewed: Yes Review of Systems Review of Systems Constitutional: no symptoms reported; No chills, No diaphoresis, No dizziness, No fever, No malaise, No weakness EENTM: No Symptoms Reported; No Nose Congestion, No Throat Pain Respiratory: See HPI, Cough, Shortness of Air Cardiovascular: See HPI, Chest Pain; Denies Edema, Denies Irregular Heart Rate, Denies Lightheadedness; Palpitations; Denies Syncope Gastrointestinal: See HPI; Denies Abdominal Pain; Nausea; Denies Vomiting Genitourinary: No Symptoms Reported Musculoskeletal: no symptoms reported Skin: no symptoms reported Psychiatric/Neurological: See HPI, Anxiety Endocrine: No Symptoms Reported Hematologic/Lymphatic: No Symptoms Reported Past Npkzlel-Rxhteb-Usvuls Hx Past Med/Social Hx: Reviewed and Corrections made Patient Social History Alcohol Use: Denies Use Recreational Drug Use: No Smoking Status: Never a Smoker 2nd Hand Smoke Exposure: Yes Recent Hopitalizations: No Immunizations Up To Date Tetanus Booster (TDap): Unknown Seasonal Allergies Seasonal Allergies: No Past Medical History Surgeries: No Respiratory: Yes (DX 12/2018) Pneumonia Cardiac: Yes Hypertension Neurological: No Reproductive Disorders: No Genitourinary: Yes Kidney Stones Gastrointestinal: Yes Gastroesophageal Reflux Musculoskeletal: No Endocrine: Yes (MORBID OBESITY--> 400 LBS. ) HEENT: Yes (POOR DENTITION) Cancer: No Psychosocial: No Integumentary: No Blood Disorders: No Physical Exam Vital Signs Vital Signs - First Documented 07/30/19 16:24 Temp 37.0 Pulse 100 Resp 16 B/P (MAP) 112/86 (95) Pulse Ox 97 O2 Delivery Room Air Capillary Refill : Height, Weight, BMI Height: 5'11.00" Weight: 450lbs. oz. 204.177057an; 61.00 BMI Method:Stated General Appearance: Anxious, Obese (MORBIDLY), Other (TALKS NON-STOP, ANXIOUS, BUT DOES NOT APPEAR TO BE IN ANY DISCOMFORT OR DISTRESS. 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 Norm as Tested, Other (ANXOIUS) Skin: Normal Color, Warm/Dry Progress/Results/Core Measures Results/Orders Lab Results Laboratory Tests Test 07/30/19 16:40 Range/Units White Blood Count 7.8 4.3-11.0 10^3/uL Red Blood Count 5.48 4.35-5.85 10^6/uL Hemoglobin 14.9 13.3-17.7 G/DL Hematocrit 46 40-54 % Mean Corpuscular Volume 84 80-99 FL Mean Corpuscular Hemoglobin 27 25-34 PG Mean Corpuscular Hemoglobin Concent 33 32-36 G/DL Red Cell Distribution Width 14.2 10.0-14.5 % Platelet Count 200 130-400 10^3/uL Mean Platelet Volume 13.2 H 7.4-10.4 FL Neutrophils (%) (Auto) 59 42-75 % Lymphocytes (%) (Auto) 30 12-44 % Monocytes (%) (Auto) 8 0-12 % Eosinophils (%) (Auto) 2 0-10 % Basophils (%) (Auto) 1 0-10 % Neutrophils # (Auto) 4.6 1.8-7.8 X 10^3 Lymphocytes # (Auto) 2.3 1.0-4.0 X 10^3 Monocytes # (Auto) 0.7 0.0-1.0 X 10^3 Eosinophils # (Auto) 0.2 0.0-0.3 10^3/uL Basophils # (Auto) 0.0 0.0-0.1 10^3/uL Erythrocyte Sedimentation Rate 6 0-15 MM/HR Prothrombin Time 13.3 12.2-14.7 SEC INR Comment 1.0 0.8-1.4 Activated Partial Thromboplast Time 27 24-35 SEC Sodium Level 142 135-145 MMOL/L Potassium Level 4.0 3.6-5.0 MMOL/L Chloride Level 108 H 98-107 MMOL/L Carbon Dioxide Level 22 21-32 MMOL/L Anion Gap 12 5-14 MMOL/L Blood Urea Nitrogen 15 7-18 MG/DL Creatinine 1.02 0.60-1.30 MG/DL Estimat Glomerular Filtration Rate > 60 BUN/Creatinine Ratio 15 Glucose Level 111 H 70-105 MG/DL Calcium Level 9.1 8.5-10.1 MG/DL Corrected Calcium 8.9 8.5-10.1 MG/DL Magnesium Level 2.3 1.6-2.4 MG/DL Total Bilirubin 0.3 0.1-1.0 MG/DL Aspartate Amino Transf (AST/SGOT) 18 5-34 U/L Alanine Aminotransferase (ALT/SGPT) 24 0-55 U/L Alkaline Phosphatase 53 40-136 U/L Total Creatine Kinase 118 30-200 U/L Creatine Kinase MB 0.4 <6.6 NG/ML Myoglobin 29.1 10.0-92.0 NG/ML Troponin I < 0.028 <0.028 NG/ML C-Reactive Protein High Sensitivity 0.25 0.00-0.50 MG/DL B-Type Natriuretic Peptide < 10.0 <100.0 PG/ML Total Protein 7.4 6.4-8.2 GM/DL Albumin 4.2 3.2-4.5 GM/DL Amylase Level 33 25-125 U/L Lipase 29 8-78 U/L TSH [place] Testing 2.94 0.35-4.94 UIU/ML My Orders Orders - NABIL LEBLANC DO Ekg Tracing (07/30/19 16:29) Ed Iv/Invasive Line Start (07/30/19 16:39) Monitor-Rhythm Ecg Trace Only (07/30/19 16:39) Chest 1 View, Ap/Pa Only (07/30/19 16:39) Amylase (07/30/19 16:39) BNP (07/30/19 16:39) Cbc With Automated Diff (07/30/19 16:39) Comprehensive Metabolic Panel (07/30/19 16:39) Creatine Kinase (07/30/19 16:39) Creatine Kinase Mb (07/30/19 16:39) Hs C Reactive Protein (07/30/19 16:39) Lipase (07/30/19 16:39) Magnesium (07/30/19 16:39) Protime With Inr (07/30/19 16:39) Partial Thromboplastin Time (07/30/19 16:39) Thyroid Analyzer (07/30/19 16:39) Erythrocyte Sedimentation Rate (07/30/19 16:39) Myoglobin Serum (07/30/19 16:39) Troponin I (07/30/19 16:39) Ketorolac Injection (Toradol Injection) (07/30/19 17:15) Ondansetron Injection (Zofran Injectio (07/30/19 17:14) Ondansetron Injection (Zofran Injectio (07/30/19 17:30) Lorazepam Injection (Ativan Injection) (07/30/19 17:30) Medications Given in ED Vital Signs/I&O 07/30/19 07/30/19 16:24 18:01 Temp 37.0 Pulse 100 74 Resp 16 16 B/P (MAP) 112/86 (95) 117/76 Pulse Ox 97 98 O2 Delivery Room Air Room Air Progress Progress Note : Progress Note PT SEEN IN COVID UNIT BASED ON PT'S COMPLAINT OF CHEST PAIN AND SHORTNESS OF BREATH--PPE WORN AT ALL TIMES PT DID NOT MEET CRITERIA FOR TESTING FOR COVID-19 NO COUGH OR ACTUAL DYSPNEA NOTED AT ANY TIME DID DISCUSS WITH PT THAT LISINOPRIL COULD POTENTIALLY BE CAUSING HIS COUGH, WHICH COULD MAKE HIS CHEST HURT, IN ADDITION TO ANXIETY CONTRIBUTING SOME OF HIS SYMPTOMS WELL. EXTREMELY ANXIOUS ABOUT GETTING IV, NOT WANTING HIS NOSE SWABBED, ETC. PT WITH INCREASING ANXIETY DURING ER STAY 1715--PT STATES "ALL MY SYMPTOMS ARE COMING BACK JUST LIKE BEFORE"--C/O NAUSEA, DRY HEAVING, INCREASING ANXIETY, BEGINNING TO HYPERVENTILATE--GIVEN ZOFRAN AND ATIVAN, ALONG WITH TORADOL SYMPTOMS EASED AT DISMISSAL Initial ECG Impression Date: July 30, 2019 Initial ECG Impression Time: 16:28 Initial ECG Rate: 91 Initial ECG Rhythm: Normal Sinus Diagnostic Imaging Comments CXR--NO ACUTE PROCESS, PER RADIOLOGIST REPORT AT 1740 Reviewed: Reviewed by Me Departure Impression Primary Impression: Chest wall pain Additional Impressions: Anxiety Anxiety hyperventilation Chronic cough Disposition: HOME, SELF-CARE Condition: Improved Departure-Patient Inst. Referrals: [facility] Patient Instructions: Chest Pain That Is Not Caused by the Heart (DC), Costochondritis, Anxiety, Adult (DC), Hyperventilation Add. Discharge Instructions: HOME, REST ALTERNATE ICE AND HEAT TO CHEST AT 20 MINUTE INTERVALS FOLLOW UP WITH [facility] IN 2-3 DAYS FOR FURTHER CARE All discharge instructions reviewed with patient and/or family. Voiced understanding. Scripts Benzonatate (TESSALON PERLES) 100 Mg Capsule 100-200 MG PO TID, #30 CAP Prov: BENJI,NABIL K DO 07/30/19 Hydroxyzine Pamoate (Hydroxyzine Pamoate) 50 Mg Capsule 50 MG PO Q6H PRN for ANXIETY, #15 CAP Prov: BENJI,NABIL K DO 07/30/19 Meloxicam (Mobic) 15 Mg Tablet 15 MG PO DAILY, #10 TAB Prov: BENJI,NABIL K DO 07/30/19 Pantoprazole Sodium (Protonix) 40 Mg Tablet.dr 40 MG PO DAILY, #15 TAB Prov: BENJI,NABIL K DO 07/30/19 BENJI,NABIL K DO July 30, 2019 16:53
[2019-07-30 17:03] LABS: PROTHROMBIN TIME PATIENT 13.3 SEC (12.2-14.7)
[2019-07-30 17:05] LABS: ALBUMIN 4.2 GM/DL (3.2-4.5); CHLORIDE 108 MMOL/L (98-107); SODIUM 142 MMOL/L (135-145)
[2019-07-30 17:06] LABS: CALCIUM 9.1 MG/DL (8.5-10.1)
[2019-07-30 17:07] LABS: AMYLASE 33 U/L (25-125)
[2019-07-30 17:08] LABS: GLUCOSE 111 MG/DL (70-105); TOTAL PROTEIN 7.4 GM/DL (6.4-8.2)
[2019-07-30 17:09] LABS: BILIRUBIN,TOTAL 0.3 MG/DL (0.1-1.0); CARBON DIOXIDE 22 MMOL/L (21-32); ERYTHROCYTE SEDIMENTATION RATE 6 MM/HR (0-15)
--- NOTE | 2019-07-30 17:10 | NUR ---
PT COMPLAINS OF NAUSEA AND ANXIETY.
[2019-07-30 17:11] LABS: ALKALINE PHOSPHATASE 53 U/L (40-136); CREATININE SERUM 1.02 MG/DL (0.60-1.30); GFR ESTIMATED > 60
[2019-07-30 17:12] LABS: BUN/CREATININE RATIO 15
[2019-07-30 17:14] LABS: ALANINE AMINOTRANSFERASE 24 U/L (0-55)
[2019-07-30] MEDS ORDERED: ONDANSETRON 4 MG/2 ML (SDV) Z0FRAN ONE (17:14)
[2019-07-30 17:15] LABS: MAGNESIUM 2.3 MG/DL (1.6-2.4)
[2019-07-30] MEDS ORDERED: KETOROLAC 30 MG/ML VIAL IVP ONE (17:15)
[2019-07-30 17:16] LABS: CREATINE KINASE 118 U/L (30-200); LIPASE 29 U/L (8-78)
[2019-07-30 17:23] LABS: CREATINE KINASE MB 0.4 NG/ML (<6.6)
[2019-07-30] MEDS ORDERED: ONDANSETRON 4 MG/2 ML (SDV) Z0FRAN IVP ONE (17:30)
[2019-07-30] MEDS ORDERED: LORazepam INJ 2 MG/ML (ATIVAN) VIAL IVP ONE (17:30)
--- NOTE | 2019-07-30 17:31 | Diagnostic Imaging Report ---
HISTORY: Chest pain. TECHNIQUE: Single frontal view of the chest. COMPARISON: 01/01/2019. FINDINGS: There is mild haziness in the lung bases which is likely due to overlying soft tissue. No focal consolidation is seen. Lung volumes are normal. No pleural effusion or pneumothorax is seen. The cardiac silhouette is normal in size and contour. IMPRESSION: No acute pulmonary abnormality seen. Dictated by: Dictated on workstation # [id number]
[2019-07-30 17:36] LABS: TSH (THYROID ANALYZER) 2.94 UIU/ML (0.35-4.94)
--- NOTE | 2019-07-30 17:38 | NUR ---
PT NOTIFIED MULTIPLE TIMES OF NEEDING A URINE SAMPLE.
[2019-07-30] MEDS ORDERED: MELO15TA14 PO (17:47)
[2019-07-30] MEDS ORDERED: HYDR50CA3 PO (17:47)
[2019-07-30] MEDS ORDERED: PANT40TA2 PO (17:47)
--- NOTE | 2019-07-30 17:49 | NUR ---
IN ROOM TALKING TO PT AT THIS TIME.
[2019-07-30] MEDS ORDERED: BENZ100C18 PO (17:54)
[2019-07-30 18:01] VITALS: BP 117/76
== END 2019-07-30 18:01 | disposition home or self-care (01) ==
LOC: EDUNIT# 16:24 → ER 16:25
DX: R07.89 Other chest pain (principal); F41.8 Other specified anxiety disorders; R05 Cough; I10 Essential (primary) hypertension; K21.9 Gastro-esophageal reflux disease without esophagitis; E66.01 Morbid (severe) obesity due to excess calories; Z68.43 Body mass index [BMI] 50.0-59.9, adult
CPT/HCPCS: 36415; 71045; 80053; 82150; 82550; 82553; 83690; 83735; 83874; 83880; 84443; 84484; 85025; 85610; 85652; 85730; 86141; 93041

== ENCOUNTER → 2019-09-08 | Outpatient (CLI) | payer SELFPAY ==
[~2019-09-08] MED LIST changes: +BENZ100C18 PO; +HYDR50CA3 PO; +MELO15TA14 PO; +PANT40TA2 PO
== END ==
LOC: CARD 10:43
PROVIDERS: ATTEND Internal Medicine Cardiovascular Disease
DX: R07.89 Other chest pain (principal); E78.5 Hyperlipidemia, unspecified; I10 Essential (primary) hypertension; E66.01 Morbid (severe) obesity due to excess calories; Z68.43 Body mass index [BMI] 50.0-59.9, adult
CPT/HCPCS: 93306

== ENCOUNTER → 2019-09-12 | Outpatient (CLI) | payer SELFPAY ==
[~2019-09-12] VITALS: Ht 180 cm; Wt 174.0 kg
[~2019-09-12] MED LIST changes: +CATHETER FLUSH 10 ML SYR IV PRN
[2019-09-12 12:26] VITALS: BP 138/82
--- NOTE | 2019-09-12 12:26 | Cardiology Stress Test Report ---
Stress Test Report Date of Procedure/Referring: Date of Procedure: Sep 12, 2019 PCP Saray Fulton MD Admitting Physician No,Local Physician Indications: Chest pain Baseline Heart Rate: 82 Baseline Blood Pressure: Blood Pressure Systolic: 138 Blood Pressure Diastolic: 82 Baseline EKG: Baseline EKG: normal sinus rhythm Summary: Patient exercised on standard Allan protocol, EKG, heart rate and blood pressure were monitored continuously, resting and stress doses of radio tracer were injected, imaging was acquired and reviewed in the short axis, horizontal long axis and vertical long axis views TID 0.73 SSS 11 SDS 1 EF 47% Conclusion: 1. Fair exercise tolerance for total of 4 minutes 45 seconds on Allan protocol, 6.6 METs achieving 89 percent of maximum expected heart rate 2. Nondiagnostic EKG changes with exercise returned to baseline during recovery 3. Severe hypertensive response to exercise with peak blood pressure 237/88 returned to baseline during recovery 4. Abnormal SPECT images with decreased uptake involving the whole anterior wall and mid to apical anterolateral wall with subtle reversibility 5. Normal left ventricular size with mild diffuse left ventricular hypokinesia, ejection fraction 47 percent SARAY FULTON MD Sep 12, 2019 12:26
== END ==
LOC: CARD 07:59
PROVIDERS: ATTEND Internal Medicine Cardiovascular Disease
DX: E78.5 Hyperlipidemia, unspecified (principal); I10 Essential (primary) hypertension; E66.01 Morbid (severe) obesity due to excess calories; Z68.43 Body mass index [BMI] 50.0-59.9, adult
CPT/HCPCS: 78452; 93017; A9502

== ENCOUNTER → 2019-09-19 | Outpatient (CLI) | payer OTHER ==
[~2019-09-19] MED LIST changes: -CATHETER FLUSH 10 ML SYR IV PRN
== END ==
LOC: LABNPT 06:48
PROVIDERS: ATTEND Internal Medicine Cardiovascular Disease
DX: Z01.818 Encounter for other preprocedural examination (principal)
CPT/HCPCS: 87635

== ENCOUNTER 2019-09-21 08:37 | Day surgery (SDC) | payer OTHER ==
[2019-09-21] VITALS (14 sets, daily range): BP systolic 124–156; BP diastolic 85–104
[~2019-09-21] VITALS: Ht 180.3 cm; Wt 174.6 kg
[2019-09-21] MEDS ORDERED: LIDOCAINE 1% INJ 20 ML 20 ML VIAL ONE (08:42)
[2019-09-21] MEDS ORDERED: HEParin (CATH LAB) 2,000 ML IV ONE (08:42)
[2019-09-21] MEDS ORDERED: NS IV 1000 ML 1,000 ML ONE (08:42)
[2019-09-21] MEDS ORDERED: NS IV 1000 ML 1,000 ML IV SCH (09:00)
--- NOTE | 2019-09-21 09:20 | Diagnostic Imaging Report ---
INDICATION: Evaluation prior to heart catheterization, chest pain.. TECHNIQUE: Single view chest 9:15 AM. CORRELATION STUDY: 07/30/2019 FINDINGS: The heart size, mediastinal configuration and pulmonary vascularity are within normal limits. The lungs are clear with no consolidating infiltrate. There is no significant effusion or pneumothorax. IMPRESSION: 1. Stable, negative appearing portable chest. Dictated by: Dictated on workstation # [id number]
[2019-09-21 09:36] LABS: BILIRUBIN,URINE NEGATIVE (NEGATIVE); CLARITY,URINE CLEAR; COLOR,URINE YELLOW; GLUCOSE, URINE (UA) NEGATIVE (NEGATIVE); KETONES,URINE NEGATIVE (NEGATIVE); LEUKOCYTE ESTERASE ,URINE NEGATIVE (NEGATIVE); NITRITE,URINE NEGATIVE (NEGATIVE); PH,URINE 5.5 (5-9); PROTEIN,URINE NEGATIVE (NEGATIVE)
[2019-09-21 09:42] LABS: BACTERIA,URINE NEGATIVE /HPF; SQUAMOUS EPITHELIAL CELL,UR RARE /HPF
[2019-09-21 09:56] LABS: PROTHROMBIN TIME PATIENT 13.4 SEC (12.2-14.7)
[2019-09-21 10:02] LABS: ALANINE AMINOTRANSFERASE 30 U/L (0-55); ALBUMIN 4.4 GM/DL (3.2-4.5); ALKALINE PHOSPHATASE 60 U/L (40-136); BILIRUBIN,TOTAL 0.6 MG/DL (0.1-1.0); BUN/CREATININE RATIO 13; CALCIUM 9.5 MG/DL (8.5-10.1); CARBON DIOXIDE 26 MMOL/L (21-32); CHLORIDE 106 MMOL/L (98-107); CHOLESTEROL 230 MG/DL (< 200); CREATININE SERUM 1.16 MG/DL (0.60-1.30); GFR ESTIMATED > 60; GLUCOSE 101 MG/DL (70-105); HDL CHOLESTEROL 41 MG/DL (40-60); POTASSIUM 3.7 MMOL/L (3.6-5.0); SODIUM 142 MMOL/L (135-145); TOTAL PROTEIN 7.9 GM/DL (6.4-8.2); TRIGLYCERIDES 176 MG/DL (<150); VLDL CHOLESTEROL 35 MG/DL (5-40)
[2019-09-21] MEDS ORDERED: MIDAZOLAM 5 MG/5 ML (VERSED) VIAL ONE (11:52)
[2019-09-21] MEDS ORDERED: HEParin 1000 UNIT/ML (10ML VIAL) FOR BOLUS ONE (11:52)
[2019-09-21] MEDS ORDERED: fentaNYL INJECTION 100 MCG/2 ML AMP ONE (11:52)
[2019-09-21] MEDS ORDERED: VERAPAMIL 5 MG/2 ML (CALAN) VIAL IV ONE (11:52)
[2019-09-21] MEDS ORDERED: NITRO DRIP 25000 MCG/D5W 250 ML IV ONE (11:53)
[2019-09-21] MEDS ORDERED: ONDANSETRON 4 MG/2 ML (SDV) Z0FRAN ONE ×3 (12:18→12:51)
--- NOTE | 2019-09-21 12:32 | Cardiac Procedure Note-CS/ASA ---
Pre-Procedure Note Pre-Op Procedure Note H&P Reviewed The H&P was reviewed, patient examined and no changes noted. Date H&P Reviewed: Sep 21, 2019 Time H&P Reviewed: 11:00 Conscious Sedation Pre-Proced Time 11:00 ASA Score 3 For ASA 3 and 4: Consider anesthesia and medical clearance. Also, for patients with a history of failed moderate sedation consider anesthesia. Airway Lungs Heart ASA score ASA 1: a normal healthy patient ASA 2: a patient with a mild systemic disease (mid diabetes, controlled hypertension, obesity x ASA 3: a patient with a severe systemic disease that limits activity (angina, COPD, prior Myocardial infarction) ASA 4: a patient with an incapacitating disease that is a constant threat to life (CHF, renal failure) ASA 5: a moribund patient not expected to survive 24 hrs. (ruptured aneurysm) ASA 6: a declared brain- patient whose organs are being harvested. For emergent operations, add the letter E after the classification Mallampati Classification Grade 3 Sedation Plan Analgesia, Amnesia, Plan communicated to team members, Discussed options with patient/fam, Discussed risks with patient/fam The patient is an appropriate candidate to undergo the planned procedure, sedation, and anesthesia. The patient immediately re-assessed prior to indication. SARAY AVINA MD Sep 21, 2019 12:32
--- NOTE | 2019-09-21 12:38 | Cardiac Cath Report ---
Cardiac Cath Report Physician (s)/Bus Matron (s) Physician SARAY AVINA MD Pre-Procedure Diagnosis Pre-Procedure Diagnosis: CAD Post-Procedure Note Procedure Start Date: Sep 21, 2019 Name of Procedure: Coronary angiogram Findings/Procedure Note PROCEDURE NOTE: 28 years old gentleman with hypertension, had an abnormal stress test, scheduled for cardiac catheterization possible PTCA. After explaining the procedure to the patient, all pros and cons were explained, all questions were answered. The patient signed the consent and then he was placed on the cardiac catheterization laboratory. Groin was prepped SL fashion local anesthesia was used. Sheath placed in the right radial artery, I had difficulty with maintaining the catheter in position due to his body habitus and he was unable to bring his arm close to the table subsequently there was constant pull on the diagnostic catheter. Patient was feeling nauseous from the beginning of the procedure he was given Zofran. I was able to intubate the right coronary artery and after the first injection he had ventricular fibrillation. Patient received a shock of 200 J it was successful in terminating V. fib. Patient regained consciousness. Pressure At the end of the procedure the sheath was removed. 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 Patient had a ventricular fibrillation after the first injection. While receiving the recent sedation his arm was falling to the side and pulled the sheath out of place and the diagnostic catheter was pulled back. At that point I decided to abort the attempt from the wrist, discussed with him attempting f rom the groin and patient elected to wait CONCLUSION: 1. Patient had ventricular fibrillation after the first injection in the right coronary system 2. 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
[2019-09-21 14:54] LABS: BASOPHILS % (AUTO) 0 % (0-10); EOSINOPHILS # (AUTO) 0.2 10^3/uL (0.0-0.3); EOSINOPHILS % (AUTO) 2 % (0-10); HEMATOCRIT 47 % (40-54); HEMOGLOBIN 15.2 G/DL (13.3-17.7); LYMPHOCYTES # (AUTO) 1.8 X 10^3 (1.0-4.0); LYMPHOCYTES % (AUTO) 25 % (12-44); MEAN CORPUSCULAR HEMOGLOBIN 28 PG (25-34); MEAN CORPUSCULAR HGB CONC 33 G/DL (32-36); MEAN CORPUSCULAR VOLUME 85 FL (80-99); MEAN PLATELET VOLUME 13.3 FL (7.4-10.4); MONOCYTES # (AUTO) 0.5 X 10^3 (0.0-1.0); MONOCYTES % (AUTO) 7 % (0-12); NEUTROPHILS # (AUTO) 4.7 X 10^3 (1.8-7.8); NEUTROPHILS % (AUTO) 66 % (42-75); PLATELET COUNT 214 10^3/uL (130-400); RED CELL DISTRIBUTION WIDTH 14.7 % (10.0-14.5); WHITE BLOOD COUNT 7.2 10^3/uL (4.3-11.0)
[2019-09-21] MEDS: ONDANSETRON 4 MG/2 ML (SDV) Z0FRAN IVP PRN (19:57)
[2019-09-21] MEDS: NS IV 1000 ML 1,000 ML IV SCH (22:42)
[2019-09-22] VITALS (10 sets, daily range): BP systolic 128–175; BP diastolic 70–98
[2019-09-22] MEDS ORDERED: LIDOCAINE 1% INJ 20 ML 20 ML VIAL ONE (07:00)
[2019-09-22] MEDS ORDERED: HEParin (CATH LAB) 2,000 ML IV ONE (07:00)
[2019-09-22] MEDS ORDERED: NS IV 1000 ML 1,000 ML ONE (07:00)
[2019-09-22] MEDS ORDERED: MIDAZOLAM 5 MG/5 ML (VERSED) VIAL ONE (07:17)
[2019-09-22] MEDS ORDERED: fentaNYL INJECTION 100 MCG/2 ML AMP ONE (07:17)
--- NOTE | 2019-09-22 07:40 | NUR ---
PT TO SENIOR FRONT END WEB DEVELOPER WITH SENIOR FRONT END WEB DEVELOPER STAFF X 2.
[2019-09-22] MEDS: NS IV 1000 ML 1,000 ML IV SCH (07:52)
[2019-09-22] MEDS ORDERED: NS IV 1000 ML 1,000 ML IV SCH (08:19)
[2019-09-22] MEDS ORDERED: ATOR10TA PO (08:21)
--- NOTE | 2019-09-22 08:21 | Discharge Inst-Post CATH ---
Discharge Inst-CATH/EP Problems Reviewed?: Yes Post Cardiac Cath/EP D/C Inst Follow Up/Plan Appointment with Dr. Fulton's office in 4 weeks <b>CARDIAC CATH/EP PROCEDURE DISCHARGE INSTRUCTIONS</b> ACTIVITY * Go Home directly and rest. * Limit activity of the leg (or wrist if it was used) for 7 days including aerobics, swimming, jogging, bicycling, etc. * Restrict stair-climbing for 7 days if possible, if not, climb up with your non-cath leg, then bring together on the same step. * Avoid lifting, pushing, pulling or excessive movement of the affected extremity for 7 days. * Customary sexual activity may be resumed after 2 days-use caution not to use a position that strains or causes pain to the affected extremity. * No driving for 24 hours. * NO SMOKING. * Avoid straining for bowel movements for 7 days. * Gentle walking on level ground is allowed. * Returning to work will depend on the type of procedure and the results. Your doctor will discuss this with you. CALL YOUR DOCTOR FOR ANY OF THE FOLLOWING: *If bleeding from the puncture site occurs- Apply gentle pressure to site with clean cloth and call your doctor or EMS. * If a knot or lump forms under the skin, increases in size, or causes pain. * If bruising appears to be worsening or moving further down your leg instead of disappearing. * Temperature above 101 F. CARE OF YOUR GROIN INCISION; * Bruising or purple discoloration of the skin near the puncture site is common. * You may shower only, no bathtub bathing for 5 days. Be careful to avoid slipping as your leg may feel stiff. * If a closure device was used on your femoral artery, please see the attached guide regarding care of the device and your leg. * Leave dressing on FOR 24 hours. CARE OF YOUR WRIST INCISION; * Bruising or purple discoloration of the skin near the puncture site is common. * You may shower. * DO NOT submerge wrist. * Leave dressing on FOR 24 hours. SARAY FULTON MD Sep 22, 2019 08:21
--- NOTE | 2019-09-22 08:24 | Cardiac Procedure Note-CS/ASA ---
Pre-Procedure Note Pre-Op Procedure Note H&P Reviewed The H&P was reviewed, patient examined and no changes noted. Date H&P Reviewed: Sep 22, 2019 Time H&P Reviewed: 08:00 Conscious Sedation Pre-Proced Time 08:00 ASA Score 3 For ASA 3 and 4: Consider anesthesia and medical clearance. Also, for patients with a history of failed moderate sedation consider anesthesia. Airway Lungs Heart ASA score ASA 1: a normal healthy patient ASA 2: a patient with a mild systemic disease (mid diabetes, controlled hypertension, obesity x ASA 3: a patient with a severe systemic disease that limits activity (angina, COPD, prior Myocardial infarction) ASA 4: a patient with an incapacitating disease that is a constant threat to life (CHF, renal failure) ASA 5: a moribund patient not expected to survive 24 hrs. (ruptured aneurysm) ASA 6: a declared brain- patient whose organs are being harvested. For emergent operations, add the letter E after the classification Mallampati Classification Grade 3 Sedation Plan Analgesia, Amnesia, Plan communicated to team members, Discussed options with patient/fam, Discussed risks with patient/fam The patient is an appropriate candidate to undergo the planned procedure, sedation, and anesthesia. The patient immediately re-assessed prior to indication. SARAY AVINA MD Sep 22, 2019 08:24
--- NOTE | 2019-09-22 08:26 | Cardiology Progress Note ---
Subjective Date Seen by Provider: Sep 22, 2019 Time Seen by Provider: 08:25 Subjective/Events-last exam Patient is doing well. No new complaint Review of Systems General: No Chills, No Night Sweats, No Fatigue, No Malaise, No Appetite, No Other HEENT: No Head Aches, No Visual Changes, No Eye Pain, No Ear Pain, No Dysphasia, No Sinus Congestion, No Post Nasal Drip, No Sore Throat, No Other Pulmonary: No Dyspnea, No Cough, No Pleuritic Chest Pain, No Other Cardiovascular: No: Chest Pain, Palpitations, Orthopnea, Paroxysmal Noc. Dyspnea, Edema, Lt Headedness, Other Objective-Cardiology Exam Last Set of Vital Signs Vital Signs 09/22/19 09/22/19 09/22/19 05:00 07:10 07:40 Temp 35.5 Pulse 71 Resp 25 B/P (MAP) 173/97 (122) Pulse Ox 95 O2 Delivery Room Air O2 Flow Rate 2.00 Capillary Refill : Less Than 3 Seconds General: Alert, Oriented X3, Cooperative HEENT: Atraumatic, PERRLA Neck: Supple, No JVD, No Thyromegaly Lungs: Clear to Auscultation, Normal Air Movement Heart: Regular Rate, Normal S1, Normal S2, No Murmurs Abdomen: Normal Bowel Sounds, Soft, No Tenderness, No Hepatosplenomegaly, No Masses Extremities: No Clubbing, No Cyanosis, No Edema, Normal Pulses, No Tenderness/Swelling Skin: No Rashes, No Breakdown, No Significant Lesion Neuro: Normal Gait, Normal Speech, Strength at 5/5 X4 Ext, Normal Tone, Sensation Intact Psych/Mental Status: Mental Status NL, Mood NL Results Lab Laboratory Tests 09/21/19 09:16 09/21/19 09:20 A/P-Cardiology Admission Diagnosis Anomalous coronary artery disease Chest pain Ventricular fibrillation Hyperlipidemia Assessment/Plan Cardiac catheterization showed 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 Hyperlipidemia started on statin Patient will go home today. Reassured at this time, groin showing no complications SARAY AVINA MD Sep 22, 2019 08:26
[2019-09-22] MEDS ORDERED: PATIENT MAY USE OWN MEDS, ALL PO SCH (08:30)
--- NOTE | 2019-09-22 08:31 | Cardiac Cath Report ---
Cardiac Cath Report Physician (s)/Ticket Clerk (s) Physician SARAY AVINA MD Pre-Procedure Diagnosis Pre-Procedure Diagnosis: CAD Post-Procedure Note Procedure Start Date: Sep 22, 2019 Name of Procedure: Aortic root angiogram Left heart catheterization Left ventriculogram Findings/Procedure Note PROCEDURE NOTE: 28 years old gentleman with morbid obesity, hyperlipidemia, recurrent chest pain, strong family history of heart disease with father at a young age after bypass surgery. Had an abnormal stress test scheduled for cardiac catheterization, had the procedure done yesterday from the radial artery, had significant difficulty due to his body habitus was unable to put his arm close to his body. During the first injection in the right coronary artery. Patient had ventricular fibrillation, I aborted the procedure at this time and monitored him overnight and start him today for repeat cardiac catheterization. After explaining the procedure to the patient, all pros and cons were explained, all questions were answered. The patient signed the consent and then he was placed on the cardiac catheterization laboratory. Groin was prepped SL fashion local anesthesia was used. Sheath placed in the right femoral artery. [place] right and left catheter were used to access the coronary system. 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 Pigtail was used to access the left ventricular cavity. Left ventriculogram was done Aortic root angiogram was done At the end of the procedure the sheath was removed. Closure device was used FINDINGS: Hemodynamics LV 121/13, end-diastolic pressure of 13 Aorta 119/71 and mean of 88 ANATOMY: Left Main is absent, the LAD has its own origin with no obstructive disease Left Anterior Descending is tortuous with no significant obstructive disease Left Circumflex is very small, anomalous coming from the right coronary cusp just below the right coronary artery with no significant obstructive disease Right Coronory Artery is dominant artery with no significant obstructive disease LV Gram was done showing normal left ventricular size, EF 50 percent Aorta evaluation done with multiple views aortic root angiogram showing aortic root is normal in size, normal aortic valve, the circumflex and right coronary artery were reviewed well with multiple views and did not show significant obstructive disease CONCLUSION: 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 Dominant right coronary artery with no obstructive disease, LAD is from the left coronary cusp with no obstructive disease 3. Normal left ventricular size, EF 50 percent 4. Normal aortic root DISCUSSION AND RECOMMENDATION: Patient had ventricular fibrillation during the initial angiogram yesterday, currently tolerated the procedure well. I will start him on Lipitor. Arrange for follow-up as an outpatient Anesthesia Type: Conscious Sedation Estimated blood loss (mL): 25 ml Contrast Amount: 108 ml Total Radiation Dose: 1263 mGy Post-Procedure Diagnosis Post-operative diagnosis: Coronary artery disease Ventricular fibrillation Morbid obesity Hyperlipidemia Family history of atherosclerosis SARAY AVINA MD Sep 22, 2019 08:31
[2019-09-22] MEDS: ONDANSETRON 4 MG/2 ML (SDV) Z0FRAN IVP PRN (08:53)
--- NOTE | 2019-09-22 14:01 | NUR ---
AFTER COMPLETION OF BEDREST AND AMBULATING AROUND ICU X 2 WITH A BENIGN GROIN SITE, PATIENT DISCHARGED HOME. ALL QUESTIONS ANSWERED AND ALL PERSONAL BELONGINGS TAKEN WITH PATIENT.
== END 2019-09-22 14:01 | disposition home or self-care (01) ==
LOC: CATH 08:37 → ICU 12:41 → CATH 09-22 14:01 → ICU 09-22 15:53
PROVIDERS: ATTEND Internal Medicine Cardiovascular Disease
DX: I25.10 Atherosclerotic heart disease of native coronary artery without angina pectoris (principal); R94.39 Abnormal result of other cardiovascular function study; I49.01 Ventricular fibrillation; I10 Essential (primary) hypertension; E78.2 Mixed hyperlipidemia; E66.01 Morbid (severe) obesity due to excess calories; Z68.43 Body mass index [BMI] 50.0-59.9, adult; Z79.899 Other long term (current) drug therapy
CPT/HCPCS: 71045; 80053; 80061; 81000; 85025; 85610; 85730; 87081; 93005; 93454; 93458; 93567; C1760; C1894 ×2; 36415

== ENCOUNTER 2020-07-21 16:51 | Emergency (ER) | payer SELFPAY ==
[~2020-07-21] VITALS: Ht 180 cm; Wt 177.0 kg
[~2020-07-21 16:51] MED LIST changes: +ATOR10TA PO
[2020-07-21 17:29] LABS: BASOPHILS % (AUTO) 1 % (0-10); EOSINOPHILS # (AUTO) 0.2 10^3/uL (0.0-0.3); EOSINOPHILS % (AUTO) 2 % (0-10); HEMATOCRIT 46 % (40-54); LYMPHOCYTES # (AUTO) 1.9 10^3/uL (1.0-4.0); LYMPHOCYTES % (AUTO) 28 % (12-44); MEAN CORPUSCULAR HEMOGLOBIN 28 pg (25-34); MEAN CORPUSCULAR HGB CONC 33 g/dL (32-36); MEAN CORPUSCULAR VOLUME 86 fL (80-99); MONOCYTES # (AUTO) 0.5 10^3/uL (0.0-1.0); MONOCYTES % (AUTO) 8 % (0-12); NEUTROPHILS # (AUTO) 4.1 10^3/uL (1.8-7.8); NEUTROPHILS % (AUTO) 61 % (42-75); PLATELET COUNT 213 10^3/uL (130-400); WHITE BLOOD COUNT 6.6 10^3/uL (4.3-11.0)
--- NOTE | 2020-07-21 17:30 | ED Chest Pain ---
General Chief Complaint: Chest Pain Stated Complaint: COVID +, CP, L SIDED AND BACK PAIN Nursing Triage Note: PT TO ED W/ C/O CP ONSET THIS AM, DENIES C/O PAIN AT THIS TIME. DOES REPORT HE IS COVID + AT THIS TIME. Nursing Sepsis Screen: No Definite Risk Source: patient Exam Limitations: no limitations (REGINALDO MONZON MD) History of Present Illness Date Seen by Provider: Jul 21, 2020 Time Seen by Provider: 17:00 Initial Comments Patient is a 29-year-old male who presents to the emergency department today with a chief complaint of left-sided chest pain that radiated into his left arm. Patient states that he woke up this morning with chest pain and had it sometime between 10 and noon today. Patient states that he was a little short of breath with it not really nauseated and he does not believe he was actually diaphoretic with it. Patient states he has not had any pain since that time but after he go t to thinking about it he felt like he needed to come to the ER because he had associated arm pain. Patient relates that he had an angiogram done about a year ago and was diagnosed with "nonobstructive cardiac disease". Dr. Zamarripa did his heart cath. Patient is supposed to be on a statin but has been unable to afford this medication so has not been taking it. He was recently diagnosed with coronavirus. He has been positive for about 5 days. He has had a dry cough. Has had some congestion and body aches. He has had diarrhea with it no nausea. He does not feel short of breath currently. He is not currently having chest pain. No fever, chills. All other review of systems reviewed and negative except as stated. Timing/Duration: 4-6 hours Severity/Quality: moderate, sharp (Comes in "waves") Location: central Radiation: arms (Left arm) Prior CP/Workup: cardiac cath (1 year ago) ASA po RETAIL ACCOUNT EXECUTIVE: No NTG SL RETAIL ACCOUNT EXECUTIVE: No Associated Symptoms: denies symptoms (REGINALDO MONZON MD) Allergies and Home Medications Allergies Coded Allergies: No Known Drug Allergies (Unverified , 09/21/19) Home Medications Atorvastatin Calcium 10 Mg Tablet, 10 MG PO DAILY Prescribed by: SARAY AVINA on 09/22/19 0821 Patient Home Medication List Home Medication List Reviewed: Yes (REGINALDO MONZON MD) Review of Systems Review of Systems Constitutional: see HPI EENTM: No Symptoms Reported Respiratory: Cough, Shortness of Air (Associated with the chest pain) Cardiovascular: Chest Pain Gastrointestinal: No Symptoms Reported Genitourinary: No Symptoms Reported Musculoskeletal: other (Body aches) Skin: no symptoms reported Psychiatric/Neurological: Anxiety (REGINALDO MONZON MD) All Other Systems Reviewed Negative Unless Noted: Yes (REGINALDO MONZON MD) Past Ktshayd-Wpxlke-Mdffnv Hx Patient Social History Alcohol Use: Denies Use Smoking Status: Never a Smoker 2nd Hand Smoke Exposure: Yes Recent Infectious Disease Expo: No Recent Hopitalizations: No (REGINALDO MONZON MD) Immunizations Up To Date Tetanus Booster (TDap): Unknown (REGINALDO MONZON MD) Seasonal Allergies Seasonal Allergies: No (REGINALDO MONZON MD) Past Medical History Surgeries: No Respiratory: No Pneumonia Currently Using CPAP: No Currently Using BIPAP: No Cardiac: Yes Hypertension Neurological: Yes Headaches /Migraines Reproductive Disorders: No Genitourinary: No Kidney Stones Gastrointestinal: Yes Chronic Diarrhea, Irritable Bowel Musculoskeletal: No Endocrine: No (MORBID OBESITY--> 400 LBS. ) HEENT: Yes (POOR DENTITION) Cancer: No Psychosocial: No Anxiety Integumentary: No Blood Disorders: No Adverse Reaction/Blood Tranf: No (REGINALDO MONZON MD) Physical Exam Vital Signs Vital Signs - First Documented (NABIL LEBLANC DO) Vital Signs Capillary Refill : Less Than 3 Seconds (REGINALDO MONZON MD) Height, Weight, BMI Height: 5'11.00" Weight: 450lbs. oz. 204.142729ud; 54.00 BMI Method:Stated General Appearance: No Apparent Distress, WD/WN HEENT: PERRL/EOMI Neck: Normal Inspection Respiratory: Lungs Clear, Normal Breath Sounds, No Accessory Muscle Use, No Respiratory Distress Cardiovascular: Regular Rate, Rhythm, No Murmur Gastrointestinal: Normal Bowel Sounds, Non Tender, Soft Extremity: Normal Capillary Refill Neurologic/Psychiatric: Alert, Oriented x3, No Motor/Sensory Deficits, 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 Skin: Normal Color, Warm/Dry (REGINALDO MONZON MD) Progress/Results/Core Measures Results/Orders Lab Results Laboratory Tests Test 07/21/20 17:22 Range/Units White Blood Count 6.6 4.3-11.0 10^3/uL Red Blood Count 5.37 4.30-5.52 10^6/uL Hemoglobin 15.0 13.3-17.7 g/dL Hematocrit 46 40-54 % Mean Corpuscular Volume 86 80-99 fL Mean Corpuscular Hemoglobin 28 25-34 pg Mean Corpuscular Hemoglobin Concent 33 32-36 g/dL Red Cell Distribution Width 13.5 10.0-14.5 % Platelet Count 213 130-400 10^3/uL Mean Platelet Volume 12.0 9.0-12.2 fL Immature Granulocyte % (Auto) 0 % Neutrophils (%) (Auto) 61 42-75 % Lymphocytes (%) (Auto) 28 12-44 % Monocytes (%) (Auto) 8 0-12 % Eosinophils (%) (Auto) 2 0-10 % Basophils (%) (Auto) 1 0-10 % Neutrophils # (Auto) 4.1 1.8-7.8 10^3/uL Lymphocytes # (Auto) 1.9 1.0-4.0 10^3/uL Monocytes # (Auto) 0.5 0.0-1.0 10^3/uL Eosinophils # (Auto) 0.2 0.0-0.3 10^3/uL Basophils # (Auto) 0.0 0.0-0.1 10^3/uL Immature Granulocyte # (Auto) 0.0 0.0-0.1 10^3/uL Sodium Level 143 135-145 MMOL/L Potassium Level 4.0 3.6-5.0 MMOL/L Chloride Level 105 98-107 MMOL/L Carbon Dioxide Level 25 21-32 MMOL/L Anion Gap 13 5-14 MMOL/L Blood Urea Nitrogen 11 7-18 MG/DL Creatinine 1.08 0.60-1.30 MG/DL Estimat Glomerular Filtration Rate > 60 BUN/Creatinine Ratio 10 Glucose Level 102 70-105 MG/DL Calcium Level 9.2 8.5-10.1 MG/DL Total Creatine Kinase 98 30-200 U/L Creatine Kinase MB 0.5 <6.6 NG/ML Troponin I < 0.028 <0.028 NG/ML (NABIL LEBLANC DO) Vital Signs/I&O 07/21/20 07/21/20 07/21/20 17:03 17:03 18:22 Temp 36.7 Pulse 83 80 Resp 20 20 B/P (MAP) 150/100 (117) 123/80 Pulse Ox 99 99 O2 Delivery Room Air Room Air Room Air (NABIL LEBLANC DO) Blood Pressure Mean: 117 Progress Progress Note : Time: 17:39 Progress Note Of note the patient did have coronary angiography in August 2019. He was noted to have no obstructive coronary artery disease. He did have an episode of ventricular fibrillation with his first attempt at his angiogram; subsequent catheterization was completed successfully per the notes. (REGINALDO MONZON MD) Progress Note : Progress Note 1800--ASSUMED CARE FROM DR. MONZON, LAB PENDING. PT IS SYMPTOM-FREE AT THIS TIME, VITALS STABLE. PT REMAINED SYMPTOM-FREE FOR REMAINDER OF ER STAY (NABIL LEBLANC DO) Initial ECG Impression Date: Jul 21, 2020 Initial ECG Impression Time: 17:08 Initial ECG Rate: 85 Initial ECG Rhythm: Normal Sinus Initial ECG Intervals: Normal Initial ECG Impression: Normal (REGINALDO MONZON MD) Diagnostic Imaging Diagonstic Imaging: Xray Plain Films/CT/US/NM/MRI: chest Comments [facility], [place] NAME: RONNI STONE [facility] REC#: [id number] PT STATUS: REG ER : 1990 PHYSICIAN: REGINALDO MONZON MD ADMIT DATE: 07/21/20/ER Draft Date of Exam:07/21/20 CHEST 1 VIEW, AP/PA ONLY INDICATION: Chest pain. FINDINGS: The lungs are clear. No failure, effusion or pneumothorax. IMPRESSION: No acute appearing abnormality. Dictated on workstation # [id number] Dict: [id number]/[id number] Trans: 07/21/[id number] [facility] [id number] Interpreted by: BERNARDO SEGUNDO Electronically signed by: (REGINALDO MONZON MD) Reviewed: Reviewed by Me (NABIL LEBLANC DO) Departure Impression Primary Impression: Chest pain Qualified Codes: R07.9 - Chest pain, unspecified Additional Impression: COVID-19 Disposition: 01 HOME, SELF-CARE Condition: Stable Departure-Patient Inst. Referrals: NO,LOCAL PHYSICIAN (PCP/Family) Primary Care Physician Patient Instructions: COVID-19 ED, Chest Pain (DC) Add. Discharge Instructions: HOME, REST TYLENOL AND MOTRIN NEEDED FOR PAIN FOLLOW UP WITH YOUR DR ON THURSDAY IF NO BETTER, RETURN TO ER IF WORSE All discharge instructions reviewed with patient and/or family. Voiced understanding. REGINALDO MONZON MD Jul 21, 2020 17:30 NABIL LEBLANC DO Jul 21, 2020 18:02
--- NOTE | 2020-07-21 17:48 | Diagnostic Imaging Report ---
INDICATION: Chest pain. FINDINGS: The lungs are clear. No failure, effusion or pneumothorax. IMPRESSION: No acute appearing abnormality. Dictated by: Dictated on workstation # [id number]
[2020-07-21 18:07] LABS: BUN/CREATININE RATIO 10; CALCIUM 9.2 MG/DL (8.5-10.1); CARBON DIOXIDE 25 MMOL/L (21-32); CHLORIDE 105 MMOL/L (98-107); CREATINE KINASE 98 U/L (30-200); CREATININE SERUM 1.08 MG/DL (0.60-1.30); GFR ESTIMATED > 60; GLUCOSE 102 MG/DL (70-105); SODIUM 143 MMOL/L (135-145)
[2020-07-21 18:14] LABS: CREATINE KINASE MB 0.5 NG/ML (<6.6)
[2020-07-21 18:22] VITALS: BP 123/80
[2020-07-22] MEDS ORDERED: ASPIRIN 325 MG (5 GR) TABLET PO SCH (09:00)
== END 2020-07-21 18:22 | disposition home or self-care (01) ==
LOC: EDUNIT# 16:51 → ER 16:52
DX: U07.1 COVID-19 (principal); I10 Essential (primary) hypertension; E66.01 Morbid (severe) obesity due to excess calories; Z68.43 Body mass index [BMI] 50.0-59.9, adult; Z77.22 Contact with and (suspected) exposure to environmental tobacco smoke (acute) (chronic)
CPT/HCPCS: 36415; 71045; 80048; 82550; 82553; 84484; 85025; 93005

== ENCOUNTER 2020-08-14 11:55 | Emergency (ER) | payer OTHER ==
[~2020-08-14] VITALS: Ht 180 cm; Wt 160.9 kg
[2020-08-14] MEDS ORDERED: PIPERACILLIN SODIUM/TAZOBACTAM 4.5 GM in NS (IVPB) 100 ML IV ONE (13:30)
--- NOTE | 2020-08-14 14:05 | ED General ---
General Chief Complaint: General Problems/Pain Stated Complaint: SOB, DIZZINESS Nursing Triage Note: pt reports going on his 1 mile walk today. approximately [address] thru his walk he started feeling bad so went home. he felt very "off" so he laid down. he states everything started to feel "fake" as he was trying to fall asleep and started to possibly feel some chest discomfort so he decied to be seen. complains of epigastric pain and left upper quad abdominal pain. pt came to be evaluated becasue of his know cardiac history. Nursing Sepsis Screen: No Definite Risk History of Present Illness Date Seen by Provider: August 14, 2020 Time Seen by Provider: 14:05 Initial Comments This is a 29-year-old male presents to the ER with complaints of left chest wall pain and "feeling off". States that he was walking at home when he began to not feel well and he returned home to try to lay down. However when he laid down he felt that something was not right and had "an adrenaline beltran that told him to wake up". States he decided he should get to the ER to be evaluated as he has a history of having a cardiac cath that required no intervention approximately 10 months ago. States that he has never been however he says that he appears to be having more frequent episodes. While waiting for provider to see him he states his unusual symptoms resolved however he began to have his typical left chest wall pain that he has been having intermittently for several months. States pain is the same as prior episodes and is typically relieved with sleep. No fever, chills, shortness of breath, nausea, vomiting. Allergies and Home Medications Allergies Coded Allergies: No Known Drug Allergies (Unverified , 09/21/19) Home Medications Atorvastatin Calcium 10 Mg Tablet, 10 MG PO DAILY Prescribed by: SARAY AVINA on 09/22/19 9217 Patient Home Medication List Home Medication List Reviewed: Yes Review of Systems Review of Systems Constitutional: see HPI EENTM: no symptoms reported Respiratory: see HPI Cardiovascular: see HPI Gastrointestinal: no symptoms reported Genitourinary: no symptoms reported Musculoskeletal: see HPI Skin: no symptoms reported Psychiatric/Neurological: No Symptoms Reported Hematologic/Lymphatic: No Symptoms Reported Immunological/Allergic: no symptoms reported Past Mhngwgt-Pyauhy-Orsqms Hx Patient Social History Alcohol Use: Denies Use 2nd Hand Smoke Exposure: Yes Recent Infectious Disease Expo: No Recent Hopitalizations: No Immunizations Up To Date Tetanus Booster (TDap): Unknown Seasonal Allergies Seasonal Allergies: No Past Medical History Surgeries: No Respiratory: No Pneumonia Currently Using CPAP: No Currently Using BIPAP: No Cardiac: Yes Hypertension Neurological: Yes Headaches /Migraines Reproductive Disorders: No Genitourinary: No Kidney Stones Gastrointestinal: Yes Chronic Diarrhea, Irritable Bowel Musculoskeletal: No Endocrine: No (MORBID OBESITY--> 400 LBS. ) HEENT: Yes (POOR DENTITION) Cancer: No Psychosocial: No Anxiety Integumentary: No Blood Disorders: No Adverse Reaction/Blood Tranf: No Physical Exam Vital Signs Vital Signs - First Documented 08/14/20 08/14/20 12:50 15:35 Temp 36.3 Pulse 99 Resp 20 B/P (MAP) 169/87 (114) Pulse Ox 99 O2 Delivery Room Air Capillary Refill : Less Than 3 Seconds Height, Weight, BMI Height: 5'11.00" Weight: 450lbs. oz. 204.177079kb; 49.00 BMI Method:Stated General Appearance: No Apparent Distress, WD/WN Eyes: Bilateral Eye Normal Inspection, Bilateral Eye PERRL, Bilateral Eye EOMI HEENT: PERRL/EOMI, Normal ENT Inspection Neck: Full Range of Motion, Normal Inspection Respiratory: Lungs Clear, Normal Breath Sounds, No Accessory Muscle Use, Other (Left chest wall tenderness with palpation) Cardiovascular: Regular Rate, Rhythm, No Edema, No Gallop, No Murmur Gastrointestinal: Normal Bowel Sounds, Non Tender, Soft Extremity: Normal Inspection, Normal Range of Motion, Non Tender Neurologic/Psychiatric: Alert, Oriented x3, No Motor/Sensory Deficits, 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 Skin: Normal Color, Warm/Dry Progress/Results/Core Measures Suspected Sepsis Recent Fever Within 48 Hours: No Infection Criteria Present: None New/Unexplained Altered Menta: No Sepsis Screen: No Definite Risk SIRS Temperature: Pulse: 99 Respiratory Rate: 20 Laboratory Tests 08/14/20 14:35: White Blood Count 7.1 Blood Pressure 169 /87 Mean: 114 Laboratory Tests 08/14/20 14:35: Creatinine 0.96, Platelet Count 231, Total Bilirubin 0.5 Results/Orders Lab Results Laboratory Tests Test 08/14/20 14:35 Range/Units White Blood Count 7.1 4.3-11.0 10^3/uL Red Blood Count 5.55 H 4.30-5.52 10^6/uL Hemoglobin 15.4 13.3-17.7 g/dL Hematocrit 47 40-54 % Mean Corpuscular Volume 85 80-99 fL Mean Corpuscular Hemoglobin 28 25-34 pg Mean Corpuscular Hemoglobin Concent 33 32-36 g/dL Red Cell Distribution Width 13.8 10.0-14.5 % Platelet Count 231 130-400 10^3/uL Mean Platelet Volume 12.5 H 9.0-12.2 fL Immature Granulocyte % (Auto) 0 % Neutrophils (%) (Auto) 78 H 42-75 % Lymphocytes (%) (Auto) 14 12-44 % Monocytes (%) (Auto) 6 0-12 % Eosinophils (%) (Auto) 1 0-10 % Basophils (%) (Auto) 1 0-10 % Neutrophils # (Auto) 5.5 1.8-7.8 X 10^3 Lymphocytes # (Auto) 1.0 1.0-4.0 X 10^3 Monocytes # (Auto) 0.5 0.0-1.0 X 10^3 Eosinophils # (Auto) 0.1 0.0-0.3 10^3/uL Basophils # (Auto) 0.1 0.0-0.1 10^3/uL Immature Granulocyte # (Auto) 0.0 0.0-0.1 10^3/uL Sodium Level 141 135-145 MMOL/L Potassium Level 3.9 3.6-5.0 MMOL/L Chloride Level 105 98-107 MMOL/L Carbon Dioxide Level 28 21-32 MMOL/L Anion Gap 8 5-14 MMOL/L Blood Urea Nitrogen 9 7-18 MG/DL Creatinine 0.96 0.60-1.30 MG/DL Estimat Glomerular Filtration Rate > 60 BUN/Creatinine Ratio 9 Glucose Level 100 70-105 MG/DL Calcium Level 9.3 8.5-10.1 MG/DL Corrected Calcium 9.1 8.5-10.1 MG/DL Total Bilirubin 0.5 0.1-1.0 MG/DL Aspartate Amino Transf (AST/SGOT) 25 5-34 U/L Alanine Aminotransferase (ALT/SGPT) 46 0-55 U/L Alkaline Phosphatase 56 40-136 U/L Troponin I < 0.028 <0.028 NG/ML Total Protein 7.9 6.4-8.2 GM/DL Albumin 4.3 3.2-4.5 GM/DL My Orders Orders - NII MORELOS APRN Ekg Tracing (08/14/20 14:05) Cbc With Automated Diff (08/14/20 14:05) Comprehensive Metabolic Panel (08/14/20 14:05) Chest Pa/Lat (2 View) (08/14/20 14:05) Troponin I (08/14/20 14:05) Vital Signs/I&O 08/14/20 08/14/20 12:50 15:35 Temp 36.3 Pulse 99 77 Resp 20 18 B/P (MAP) 169/87 (114) 144/95 Pulse Ox 99 97 O2 Delivery Room Air Capillary Refill : Less Than 3 Seconds Blood Pressure Mean: 114 ECG Initial ECG Impression Date: August 14, 2020 Initial ECG Impression Time: 14:13 Initial ECG Rate: 78 Initial ECG Rhythm: Normal Sinus Initial ECG Intervals: Normal Initial ECG Impression: Normal Diagnostic Imaging Diagonstic Imaging: Xray Plain Films/CT/US/NM/MRI: chest Comments NAME: RONNI STONE MED REC#: [id number] PT STATUS: REG ER : 1990 PHYSICIAN: NII MORELOS APRN ADMIT DATE: 08/14/20/ER Draft Date of Exam:08/14/20 CHEST PA/LAT (2 VIEW) INDICATION: Chest discomfort following activity, abdominal pain. Cardiomediastinal and hilar contours appeared normal and stable from 07/21/2020. The lungs are clear. There is no failure, effusion, pneumothorax or infiltrate. IMPRESSION: Unremarkable stable 2 view chest. Dictated on workstation # [id number] Dict: 08/14/20 1429 Trans: 08/14/20 1430 [facility] [place] [id number] Interpreted by: BERNARDO SEGUNDO Electronically signed by: Reviewed: Reviewed by Me Departure Impression Primary Impression: Anxiety Disposition: 01 HOME, SELF-CARE Condition: Improved Departure-Patient Inst. Decision time for Depature: 15:24 Referrals: NO,LOCAL PHYSICIAN (PCP/Family) Primary Care Physician Add. Discharge Instructions: Plan: 1. Follow up [facility]. 2. Return for any new or worsening symptoms. All discharge instructions reviewed with patient and/or family. Voiced understanding. NII MORELOS RN MOBILE August 14, 2020 14:05
--- NOTE | 2020-08-14 14:31 | Diagnostic Imaging Report ---
INDICATION: Chest discomfort following activity, abdominal pain. Cardiomediastinal and hilar contours appeared normal and stable from 07/21/2020. The lungs are clear. There is no failure, effusion, pneumothorax or infiltrate. IMPRESSION: Unremarkable stable 2 view chest. Dictated by: Dictated on workstation # [id number]
[2020-08-14 14:46] LABS: BASOPHILS # (AUTO) 0.1 10^3/uL (0.0-0.1); BASOPHILS % (AUTO) 1 % (0-10); EOSINOPHILS # (AUTO) 0.1 10^3/uL (0.0-0.3); EOSINOPHILS % (AUTO) 1 % (0-10); HEMATOCRIT 47 % (40-54); HEMOGLOBIN 15.4 g/dL (13.3-17.7); LYMPHOCYTES % (AUTO) 14 % (12-44); MEAN CORPUSCULAR HEMOGLOBIN 28 pg (25-34); MEAN CORPUSCULAR HGB CONC 33 g/dL (32-36); MEAN CORPUSCULAR VOLUME 85 fL (80-99); MEAN PLATELET VOLUME 12.5 fL (9.0-12.2); MONOCYTES # (AUTO) 0.5 X 10^3 (0.0-1.0); MONOCYTES % (AUTO) 6 % (0-12); NEUTROPHILS # (AUTO) 5.5 X 10^3 (1.8-7.8); NEUTROPHILS % (AUTO) 78 % (42-75); PLATELET COUNT 231 10^3/uL (130-400); WHITE BLOOD COUNT 7.1 10^3/uL (4.3-11.0)
[2020-08-14 14:56] LABS: ALBUMIN 4.3 GM/DL (3.2-4.5); CHLORIDE 105 MMOL/L (98-107); POTASSIUM 3.9 MMOL/L (3.6-5.0); SODIUM 141 MMOL/L (135-145)
[2020-08-14 14:58] LABS: CALCIUM 9.3 MG/DL (8.5-10.1)
[2020-08-14 14:59] LABS: GLUCOSE 100 MG/DL (70-105); TOTAL PROTEIN 7.9 GM/DL (6.4-8.2)
[2020-08-14 15:00] LABS: CARBON DIOXIDE 28 MMOL/L (21-32)
[2020-08-14 15:01] LABS: BILIRUBIN,TOTAL 0.5 MG/DL (0.1-1.0)
[2020-08-14 15:02] LABS: ALKALINE PHOSPHATASE 56 U/L (40-136); CREATININE SERUM 0.96 MG/DL (0.60-1.30); GFR ESTIMATED > 60
[2020-08-14 15:04] LABS: BUN/CREATININE RATIO 9
[2020-08-14 15:05] LABS: ALANINE AMINOTRANSFERASE 46 U/L (0-55)
[2020-08-14 15:35] VITALS: BP 144/95
== END 2020-08-14 15:35 | disposition home or self-care (01) ==
LOC: EDUNIT# 11:55 → ER 11:56
DX: F41.9 Anxiety disorder, unspecified (principal); R07.89 Other chest pain; I10 Essential (primary) hypertension; E66.01 Morbid (severe) obesity due to excess calories; Z68.42 Body mass index [BMI] 45.0-49.9, adult; Z77.22 Contact with and (suspected) exposure to environmental tobacco smoke (acute) (chronic)
CPT/HCPCS: 36415; 71046; 80053; 84484; 85025; 93005

== ENCOUNTER 2020-09-06 12:50 | Emergency (ER) | payer SELFPAY ==
[~2020-09-06] VITALS: Ht 180 cm; Wt 177.0 kg
--- NOTE | 2020-09-06 13:09 | ED Chest Pain ---
General Stated Complaint: CP,SOB Source: patient Exam Limitations: no limitations History of Present Illness Date Seen by Provider: Sep 06, 2020 Time Seen by Provider: 13:05 Initial Comments To ER with sharp left-sided chest pain and shortness of breath with minimal exertion since Thursday. Timing/Duration: changing over time, 3-4 days Severity/Quality: moderate Location: substernal Radiation: no radiation ASA po GREEN BUILDING DESIGN SPECIALIST: No NTG SL GREEN BUILDING DESIGN SPECIALIST: No Associated Symptoms: denies symptoms Allergies and Home Medications Allergies Coded Allergies: No Known Drug Allergies (Unverified , 09/21/19) Home Medications Atorvastatin Calcium 10 Mg Tablet, 10 MG PO DAILY Prescribed by: SARAY AVINA on 09/22/19 0821 Patient Home Medication List Home Medication List Reviewed: Yes Review of Systems Review of Systems Constitutional: see HPI EENTM: See HPI Respiratory: See HPI, Shortness of Air Cardiovascular: See HPI, Chest Pain Gastrointestinal: No Symptoms Reported Genitourinary: No Symptoms Reported Musculoskeletal: no symptoms reported Skin: no symptoms reported Psychiatric/Neurological: No Symptoms Reported Endocrine: No Symptoms Reported Past Ieiftwp-Ymwpmn-Gugbnd Hx Patient Social History 2nd Hand Smoke Exposure: Yes Recent Hopitalizations: No Immunizations Up To Date Tetanus Booster (TDap): Unknown Seasonal Allergies Seasonal Allergies: No Past Medical History Surgeries: No Respiratory: No Pneumonia Currently Using CPAP: No Currently Using BIPAP: No Cardiac: Yes Hypertension Neurological: Yes Headaches /Migraines Reproductive Disorders: No Genitourinary: No Kidney Stones Gastrointestinal: Yes Chronic Diarrhea, Irritable Bowel Musculoskeletal: No Endocrine: No (MORBID OBESITY--> 400 LBS. ) HEENT: Yes (POOR DENTITION) Cancer: No Psychosocial: No Anxiety Integumentary: No Blood Disorders: No Adverse Reaction/Blood Tranf: No Physical Exam Vital Signs Vital Signs - First Documented 09/06/20 12:53 Temp 36.0 Pulse 68 Resp 18 B/P (MAP) 130/100 (110) Capillary Refill : Height, Weight, BMI Height: 5'11.00" Weight: 450lbs. oz. 204.506802nm; 49.00 BMI Method:Stated General Appearance: No Apparent Distress, WD/WN, Obese (Quite obese, this is likely contributing to his shortness of breath with exertion) Neck: Full Range of Motion, Normal Inspection Respiratory: No Accessory Muscle Use, No Respiratory Distress Cardiovascular: Regular Rate, Rhythm, Normal Peripheral Pulses Gastrointestinal: Normal Bowel Sounds, Non Tender, Soft Neurologic/Psychiatric: Alert, Oriented x3 Skin: Normal Color, Warm/Dry Other comments EKG shows sinus arrhythmia without ectopy. Rate 82 normal intervals Progress/Results/Core Measures Results/Orders Lab Results Laboratory Tests Test 09/06/20 13:06 09/06/20 13:12 Range/Units White Blood Count 6.8 4.3-11.0 10^3/uL Red Blood Count 5.43 4.30-5.52 10^6/uL Hemoglobin 15.6 13.3-17.7 g/dL Hematocrit 47 40-54 % Mean Corpuscular Volume 86 80-99 fL Mean Corpuscular Hemoglobin 29 25-34 pg Mean Corpuscular Hemoglobin Concent 34 32-36 g/dL Red Cell Distribution Width 13.6 10.0-14.5 % Platelet Count 224 130-400 10^3/uL Mean Platelet Volume 12.5 H 9.0-12.2 fL Immature Granulocyte % (Auto) 0 % Neutrophils (%) (Auto) 72 42-75 % Lymphocytes (%) (Auto) 20 12-44 % Monocytes (%) (Auto) 5 0-12 % Eosinophils (%) (Auto) 2 0-10 % Basophils (%) (Auto) 1 0-10 % Neutrophils # (Auto) 4.9 1.8-7.8 10^3/uL Lymphocytes # (Auto) 1.4 1.0-4.0 10^3/uL Monocytes # (Auto) 0.4 0.0-1.0 10^3/uL Eosinophils # (Auto) 0.1 0.0-0.3 10^3/uL Basophils # (Auto) 0.0 0.0-0.1 10^3/uL Immature Granulocyte # (Auto) 0.0 0.0-0.1 10^3/uL Sodium Level 141 135-145 MMOL/L Potassium Level 4.0 3.6-5.0 MMOL/L Chloride Level 105 98-107 MMOL/L Carbon Dioxide Level 26 21-32 MMOL/L Anion Gap 10 5-14 MMOL/L Blood Urea Nitrogen 11 7-18 MG/DL Creatinine 1.02 0.60-1.30 MG/DL Estimat Glomerular Filtration Rate > 60 BUN/Creatinine Ratio 11 Glucose Level 104 70-105 MG/DL Calcium Level 9.6 8.5-10.1 MG/DL Corrected Calcium 9.3 8.5-10.1 MG/DL Magnesium Level 2.3 1.6-2.4 MG/DL Total Bilirubin 0.9 0.1-1.0 MG/DL Aspartate Amino Transf (AST/SGOT) 24 5-34 U/L Alanine Aminotransferase (ALT/SGPT) 44 0-55 U/L Alkaline Phosphatase 47 40-136 U/L Myoglobin 45.0 10.0-92.0 NG/ML Troponin I < 0.028 <0.028 NG/ML B-Type Natriuretic Peptide < 10.0 <100.0 PG/ML Total Protein 8.0 6.4-8.2 GM/DL Albumin 4.4 3.2-4.5 GM/DL Prothrombin Time 14.1 12.2-14.7 SEC INR Comment 1.0 0.8-1.4 Activated Partial Thromboplast Time 28 24-35 SEC D-Dimer <= 0.27 0.00-0.49 UG/ML My Orders Orders - GUIDO GIRALDO APRN Cbc With Automated Diff (09/06/20 13:01) Magnesium (09/06/20 13:01) Chest 1 View, Ap/Pa Only (09/06/20 13:01) Ekg Tracing (09/06/20 13:01) Comprehensive Metabolic Panel (09/06/20 13:01) Myoglobin Serum (09/06/20 13:01) Protime With Inr (09/06/20 13:01) Partial Thromboplastin Time (09/06/20 13:01) O2 (09/06/20 13:01) Monitor-Rhythm Ecg Trace Only (09/06/20 13:01) Lipid Panel (09/07/20 06:00) Ed Iv/Invasive Line Start (09/06/20 13:01) BNP (09/06/20 13:01) Troponin I (09/06/20 13:01) Fibrin Degradation Products (09/06/20 13:12) Vital Signs/I&O 09/06/20 12:53 Temp 36.0 Pulse 68 Resp 18 B/P (MAP) 130/100 (110) Progress Progress Note : Progress Note NAME: RONNI STONE MED REC#: [id number] PT STATUS: REG ER : 1990 PHYSICIAN: GUIDO GIRALDO APRN ADMIT DATE: 09/06/20/ER Draft Date of Exam:09/06/20 CHEST 1 VIEW, AP/PA ONLY INDICATION: Chest pain Frontal chest obtained at 111 p.m. is compared to 08/14/2020 Heart and mediastinal silhouette are normal in appearance. The lungs are clear. There is no pneumothorax or pleural fluid. IMPRESSION: Negative chest. Dictated on workstation # [id number] Dict: 09/06/20 1323 Trans: 09/06/20 1326 [facility] [id number] Interpreted by: MICHELLE MCMAHON MD Electronically signed by: Departure Impression Primary Impression: Chest pain Additional Impressions: Exertional dyspnea Activity intolerance Disposition: 01 HOME, SELF-CARE Condition: Stable Departure-Patient Inst. Decision time for Depature: 14:19 Referrals: NO,LOCAL PHYSICIAN (PCP/Family) Primary Care Physician Patient Instructions: Shortness of Breath, Adult ED Add. Discharge Instructions: . Labs look good. No sign of heart attack or blood clot in the lungs or heart failure. Some exercise use a couple of days a week would be helpful at increasing your exercise tolerance and ultimately help to improve this shortness of breath that you have with minimal exertion. Exercise is also associated with lowering cholesterol without need for medication. This can be as simple as walking a mile a day in the evenings when it is cooler out. Start with that and then work your way up to more rigorous activity as you can tolerate it. GUIDO GIRALDO APRN Sep 06, 2020 13:09
[2020-09-06 13:18] LABS: BASOPHILS % (AUTO) 1 % (0-10); EOSINOPHILS # (AUTO) 0.1 10^3/uL (0.0-0.3); EOSINOPHILS % (AUTO) 2 % (0-10); HEMATOCRIT 47 % (40-54); HEMOGLOBIN 15.6 g/dL (13.3-17.7); LYMPHOCYTES # (AUTO) 1.4 10^3/uL (1.0-4.0); LYMPHOCYTES % (AUTO) 20 % (12-44); MEAN CORPUSCULAR HEMOGLOBIN 29 pg (25-34); MEAN CORPUSCULAR HGB CONC 34 g/dL (32-36); MEAN CORPUSCULAR VOLUME 86 fL (80-99); MEAN PLATELET VOLUME 12.5 fL (9.0-12.2); MONOCYTES # (AUTO) 0.4 10^3/uL (0.0-1.0); MONOCYTES % (AUTO) 5 % (0-12); NEUTROPHILS # (AUTO) 4.9 10^3/uL (1.8-7.8); NEUTROPHILS % (AUTO) 72 % (42-75); PLATELET COUNT 224 10^3/uL (130-400); WHITE BLOOD COUNT 6.8 10^3/uL (4.3-11.0)
--- NOTE | 2020-09-06 13:27 | Diagnostic Imaging Report ---
INDICATION: Chest pain Frontal chest obtained at 111 p.m. is compared to 08/14/2020 Heart and mediastinal silhouette are normal in appearance. The lungs are clear. There is no pneumothorax or pleural fluid. IMPRESSION: Negative chest. Dictated by: Dictated on workstation # [id number]
[2020-09-06 13:30] LABS: ALBUMIN 4.4 GM/DL (3.2-4.5); CHLORIDE 105 MMOL/L (98-107); SODIUM 141 MMOL/L (135-145)
[2020-09-06 13:31] LABS: CALCIUM 9.6 MG/DL (8.5-10.1)
[2020-09-06 13:32] LABS: GLUCOSE 104 MG/DL (70-105)
[2020-09-06 13:33] LABS: CARBON DIOXIDE 26 MMOL/L (21-32)
[2020-09-06 13:34] LABS: BILIRUBIN,TOTAL 0.9 MG/DL (0.1-1.0)
[2020-09-06 13:35] LABS: ALKALINE PHOSPHATASE 47 U/L (40-136)
[2020-09-06 13:36] LABS: CREATININE SERUM 1.02 MG/DL (0.60-1.30); GFR ESTIMATED > 60
[2020-09-06 13:37] LABS: BUN/CREATININE RATIO 11
[2020-09-06 13:39] LABS: ALANINE AMINOTRANSFERASE 44 U/L (0-55); MAGNESIUM 2.3 MG/DL (1.6-2.4)
[2020-09-06 14:07] LABS: FIBRIN DEGRADATION PRODUCTS <= 0.27 UG/ML (0.00-0.49); PARTIAL THROMBOPLASTIN TIME 28 SEC (24-35); PROTHROMBIN TIME PATIENT 14.1 SEC (12.2-14.7)
[2020-09-06] MEDS ORDERED: SERT-412 PO (14:47)
[2020-09-06] MEDS ORDERED: RT-ALBUTEROL INHALER HFA (VENTOLIN HFA) 18 GM IH ONE (14:54)
[2020-09-06 14:57] VITALS: BP 121/88
[2020-09-06] MEDS ORDERED: RT-ALBUTEROL INHALER HFA (VENTOLIN HFA) 18 GM IH SCH (18:00)
== END 2020-09-06 14:57 | disposition home or self-care (01) ==
LOC: EDUNIT# 12:50 → ER 12:51
DX: R07.9 Chest pain, unspecified (principal); R06.09 Other forms of dyspnea; R68.89 Other general symptoms and signs; I10 Essential (primary) hypertension; E66.01 Morbid (severe) obesity due to excess calories; Z68.42 Body mass index [BMI] 45.0-49.9, adult; Z77.22 Contact with and (suspected) exposure to environmental tobacco smoke (acute) (chronic)
CPT/HCPCS: 36415; 71045; 80053; 83735; 83874; 83880; 84484; 85025; 85379; 85610; 85730; 93005; 93041

== ENCOUNTER 2021-03-27 09:56 | Emergency (ER) | payer SELFPAY ==
[~2021-03-27] VITALS: Ht 180 cm; Wt 171.0 kg
[~2021-03-27 09:56] MED LIST changes: +SERT-412 PO
[2021-03-27] MEDS ORDERED: ASPIRIN 81 MG CHEW (CHILDREN'S ASA) ONE (10:19)
--- NOTE | 2021-03-27 10:42 | ED Respiratory ---
General Stated Complaint: COUGH,N/V,FATIGUE,BACK PAIN,CP, L ARM PAIN Source: patient Exam Limitations: no limitations (VAHE GEORGE STUDENT) History of Present Illness Date Seen by Provider: Mar 27, 2021 Time Seen by Provider: 10:30 Initial Comments This is a morbidly obese 30 YO male with hx of HLD and CAD presenting to the ED with SOB, fatigue, and chills for the past 2 weeks. Pt says he had a COVID exposure at work 1 week prior to symptoms onset. He was vaccinated against COVID about 7 months ago and received a booster 1 week ago. Denies fever, leg pain/swelling, recent surgery/travel, or history of blood clots. Has taken Excedrin, Aleve, and aspirin without improvement. Had some vomiting at the onset of his symptoms, but that has resolved and is now having diarrhea. Notes some intermittent left-sided chest pain that radiates to his back and down his left arm, but says this has been going on for years. Had a heart cath by Dr. Fulton 2 years ago that showed atherosclerotic disease. He prescribed Lipitor, but pt has not been taking it because he cannot afford it. He came to the ER today because his symptoms have worsened and became fatigued and short of breath just getting up and walking to the shower. Timing/Duration: getting worse Associated Symptoms: chest pain/soreness, shortness of breath (VAHE GEORGE STUDENT) Allergies and Home Medications Allergies Coded Allergies: No Known Drug Allergies (Unverified , 09/21/19) Patient Home Medication List Home Medication List Reviewed: Yes (REGINALDO MONZON MD) Atorvastatin Calcium (Lipitor) 10 Mg Tablet, 10 MG PO DAILY Prescribed by: SARAY FULTON on 09/22/19 0821 Ondansetron (Ondansetron Odt) 8 Mg Tab.rapdis, 8 MG PO Q8H PRN for nausea Prescribed by: REGINALDO MONZON on 03/27/21 1226 Sertraline HCl (Sertraline HCl) 25 Mg Tablet, 25 MG PO DAILY Prescribed by: GUIDO GIRALDO on 09/06/20 1447 Review of Systems Review of Systems Constitutional: chills; No fever EENTM: No blurred vision, No double vision Respiratory: No hemoptysis; short of breath Cardiovascular: chest pain; No edema Gastrointestinal: No abdominal pain; diarrhea, nausea; No vomiting Genitourinary: no symptoms reported Musculoskeletal: see HPI, other (body aches) Skin: no symptoms reported Psychiatric/Neurological: Denies Headache, Denies Numbness Hematologic/Lymphatic: No Symptoms Reported, See HPI; Denies Blood Clots Immunological/Allergic: no symptoms reported (VAHE GEORGE STUDENT) All Other Systems Reviewed Negative Unless Noted: Yes (Negative excepted noted.) (VAHE GEORGE STUDENT) Past Jhmxwyi-Bssugr-Hgqzvu Hx Immunizations Up To Date Tetanus Booster (TDap): Unknown (VAHE GEORGE STUDENT) Seasonal Allergies Seasonal Allergies: No (VAHE GEORGE Womply STUDENT) Past Medical History Surgeries: No Respiratory: No Pneumonia Currently Using CPAP: No Currently Using BIPAP: No Cardiac: Yes Hypertension Neurological: Yes Headaches /Migraines Reproductive Disorders: No Genitourinary: No Kidney Stones Gastrointestinal: Yes Chronic Diarrhea, Irritable Bowel Musculoskeletal: No Endocrine: No (MORBID OBESITY--> 400 LBS. ) HEENT: Yes (POOR DENTITION) Cancer: No Psychosocial: No Anxiety Integumentary: No Blood Disorders: No Adverse Reaction/Blood Tranf: No (VAHE GEORGE Womply STUDENT) Physical Exam Vital Signs - First Documented 03/27/21 10:00 Temp 35.3 Pulse 83 Resp 20 B/P (MAP) 148/102 (117) Pulse Ox 99 (REGINALDO MONZON MD) Capillary Refill : (VAHE GEORGE STUDENT) Height: 5'11.00" Weight: 450lbs. oz. 204.414796rq; 54.00 BMI Method:Stated General Appearance: WD/WN, no apparent distress, obese Eyes: Bilateral Eye Normal Inspection, Bilateral Eye EOMI HEENT: No scleral icterus (R), No scleral icterus (L); other (dry mucous membranes) Neck: supple, normal inspection Respiratory: lungs clear, normal breath sounds, no respiratory distress, no accessory muscle use Cardiovascular: regular rate, rhythm, no murmur Gastrointestinal: non tender, soft; No guarding; other (morbidly obese) Extremities: no pedal edema, no calf tenderness Neurologic/Psychiatric: no motor/sensory deficits, alert, normal mood/affect, oriented x 3 Skin: normal color, warm/dry (VAHE GEORGE Womply STUDENT) Progress/Results/Core Measures Suspected Sepsis SIRS Temperature: Pulse: Respiratory Rate: Blood Pressure / Mean: (GEORGEVAHE MED STUDENT) Results/Orders Lab Results Laboratory Tests Test 03/27/21 10:04 03/27/21 11:30 Range/Units Influenza Type A (RT-PCR) Not Detected Not Detecte Influenza Type B (RT-PCR) Not Detected Not Detecte SARS-CoV-2 RNA (RT-PCR) Not Detected Not Detecte White Blood Count 5.0 4.3-11.0 10^3/uL Red Blood Count 5.08 4.30-5.52 10^6/uL Hemoglobin 14.3 13.3-17.7 g/dL Hematocrit 44 40-54 % Mean Corpuscular Volume 86 80-99 fL Mean Corpuscular Hemoglobin 28 25-34 pg Mean Corpuscular Hemoglobin Concent 33 32-36 g/dL Red Cell Distribution Width 13.6 10.0-14.5 % Platelet Count 182 130-400 10^3/uL Mean Platelet Volume 13.0 H 9.0-12.2 fL Immature Granulocyte % (Auto) 0 % Neutrophils (%) (Auto) 63 42-75 % Lymphocytes (%) (Auto) 26 12-44 % Monocytes (%) (Auto) 7 0-12 % Eosinophils (%) (Auto) 3 0-10 % Basophils (%) (Auto) 1 0-10 % Neutrophils # (Auto) 3.1 1.8-7.8 10^3/uL Lymphocytes # (Auto) 1.3 1.0-4.0 10^3/uL Monocytes # (Auto) 0.3 0.0-1.0 10^3/uL Eosinophils # (Auto) 0.2 0.0-0.3 10^3/uL Basophils # (Auto) 0.1 0.0-0.1 10^3/uL Immature Granulocyte # (Auto) 0.0 0.0-0.1 10^3/uL Sodium Level 141 135-145 MMOL/L Potassium Level 3.9 3.6-5.0 MMOL/L Chloride Level 108 H 98-107 MMOL/L Carbon Dioxide Level 27 21-32 MMOL/L Anion Gap 6 5-14 MMOL/L Blood Urea Nitrogen 12 7-18 MG/DL Creatinine 0.87 0.60-1.30 MG/DL Estimat Glomerular Filtration Rate 103 BUN/Creatinine Ratio 14 Glucose Level 101 70-105 MG/DL Calcium Level 9.1 8.5-10.1 MG/DL Corrected Calcium 9.3 8.5-10.1 MG/DL Total Bilirubin 0.7 0.1-1.0 MG/DL Aspartate Amino Transf (AST/SGOT) 16 5-34 U/L Alanine Aminotransferase (ALT/SGPT) 33 0-55 U/L Alkaline Phosphatase 52 40-136 U/L C-Reactive Protein High Sensitivity 0.28 0.00-0.50 MG/DL Total Protein 6.9 6.4-8.2 GM/DL Albumin 3.8 3.2-4.5 GM/DL (REGINALDO MONZON MD) My Orders Orders - REGINALDO MONZON MD Aspirin Chewable Tablet (Baby Aspirin Ch (03/27/21 10:19) Covid 19 Inhouse Test (03/27/21 10:38) Cbc With Automated Diff (03/27/21 10:38) Comprehensive Metabolic Panel (03/27/21 10:38) Hs C Reactive Protein (03/27/21 10:38) Chest 1 View, Ap/Pa Only (03/27/21 10:38) Influenza A And B By Pcr (03/27/21 10:38) Isolation Central Supply Req (03/27/21 10:38) Ekg Tracing (03/27/21 10:53) Aspirin Chewable Tablet (Baby Aspirin Ch (03/28/21 09:00) (REGINALDO MONZON MD) Medications Given in ED (REGINALDO MONZON MD) Vital Signs/I&O 03/27/21 03/27/21 10:00 12:27 Temp 35.3 Pulse 83 66 Resp 20 20 B/P (MAP) 148/102 (117) 113/78 Pulse Ox 99 99 (REGINALDO MONZON MD) Vital Signs/I&O Capillary Refill : (VAHE GEORGE MED STUDENT) Progress Note : Time: 12:17 Progress Note 30-year-old male presents to the emergency room with Covid-like symptoms over the course of the last week. Complains of feeling profoundly weak onset yesterday primarily after a 20-minute hot shower. Has had poor appetite poor fluid intake. Is Covid vaccinated and had a booster. No reported fevers, no loss of taste or smell, no urinary difficulties or diarrhea. He has had body ac hes. He also has had some nonspecific left-sided chest pain. Not worsened by any particular activity. This is chronic, longstanding and he has had previous evaluation for this including heart catheterization. EKG is unremarkable. Evaluation today includes a physical exam, CBC, chemistry, CRP and chest x-ray. There is a hint of left basilar infiltrate on chest x-ray however the patient's vital signs are stable, he is not hypoxic, he is not tachycardic, he is not febrile. He does not have an elevated white blood cell count. I do not think there is an indication for antibiotics at this time. Supportive care will be offered. Patient is advised to follow-up with primary care. Tylenol and ibuprofen. Hydration. (REGINALDO MONZON MD) ECG Initial ECG Impression Date: Mar 27, 2021 Initial ECG Impression Time: 10:12 Initial ECG Rate: 83 Initial ECG Rhythm: Normal Sinus Initial ECG Intervals: Normal Initial ECG Impression: Normal Comment Artifact lead V3, no ST segment elevation or depression or ectopy (REGINALDO MONZON MD) Diagnostic Imaging Diagonstic Imaging: Xray Plain Films/CT/US/NM/MRI: chest Comments [facility], [place] NAME: RONNI STONE [facility] REC#: [id number] PT STATUS: REG ER : 1990 PHYSICIAN: REGINALDO MONZON MD ADMIT DATE: 03/27/21/ER Draft Date of Exam:03/27/21 CHEST 1 VIEW, AP/PA ONLY INDICATION: Cough, fatigue. COMPARISON: 09/06/2020. TECHNIQUE: Single frontal radiograph of the chest dated 03/27/2021. FINDINGS: The cardiac silhouette is within normal limits in size. No significant pulmonary vascular congestion. Evaluation of the lungs is slightly limited secondary to overlying soft tissues and body habitus. However, there is suggestion of possible mild left basilar opacities. No large-volume pleural effusion. No pneumothorax. No acute osseous abnormality. IMPRESSION: Limited exam suggests possible minimal left basilar atelectasis and/or infiltrate. Dictated on workstation # [id number] Dict: 03/27/21 1148 Trans: 03/27/21 1151 [id number] Interpreted by: NAVID DARDEN MD Electronically signed by: (REGINALDO MONZON MD) Departure Impression Primary Impression: Viral syndrome Disposition: 01 HOME, SELF-CARE Condition: Stable Departure-Patient Inst. Decision time for Depature: 12:20 (REGINALDO MONZON MD) Referrals: [facility],LOCAL PHYSICIAN (PCP) Primary Care Physician Patient Instructions: Viral Syndrome (DC) Add. Discharge Instructions: Drink plenty of fluids to stay well-hydrated. Alternate extra strength Tylenol and ibuprofen every 6 hours as needed for body ache, fever. Return to the emergency department for worsening symptoms, new emergent concerning complaints. Please follow-up with [facility] Ondansetron (Ondansetron Odt) 8 Mg Tab.rapdis 8 MG PO Q8H PRN for nausea, #20 TAB Prov: REGINALDO MONZON MD 03/27/21 Verification and Attestation of Medical Student E/M Service A medical student performed and documented this service in my presence. I reviewed and verified all information documented by the medical student and made modifications to such information, when appropriate. I personally performed the physical exam and medical decision making. Reginaldo Monzon, Mar 27, 2021,12:20 (REGINALDO MONZON MD) VAHE GEORGE MED STUDENT Mar 27, 2021 10:42 REGINALDO MONZON MD Mar 27, 2021 12:22
[2021-03-27 11:38] LABS: BASOPHILS # (AUTO) 0.1 10^3/uL (0.0-0.1); BASOPHILS % (AUTO) 1 % (0-10); EOSINOPHILS # (AUTO) 0.2 10^3/uL (0.0-0.3); EOSINOPHILS % (AUTO) 3 % (0-10); HEMATOCRIT 44 % (40-54); HEMOGLOBIN 14.3 g/dL (13.3-17.7); LYMPHOCYTES # (AUTO) 1.3 10^3/uL (1.0-4.0); LYMPHOCYTES % (AUTO) 26 % (12-44); MEAN CORPUSCULAR HEMOGLOBIN 28 pg (25-34); MEAN CORPUSCULAR HGB CONC 33 g/dL (32-36); MEAN CORPUSCULAR VOLUME 86 fL (80-99); MONOCYTES # (AUTO) 0.3 10^3/uL (0.0-1.0); MONOCYTES % (AUTO) 7 % (0-12); NEUTROPHILS # (AUTO) 3.1 10^3/uL (1.8-7.8); NEUTROPHILS % (AUTO) 63 % (42-75); PLATELET COUNT 182 10^3/uL (130-400)
[2021-03-27 11:49] LABS: ALBUMIN 3.8 GM/DL (3.2-4.5); POTASSIUM 3.9 MMOL/L (3.6-5.0)
[2021-03-27 11:50] LABS: CALCIUM 9.1 MG/DL (8.5-10.1)
[2021-03-27 11:51] LABS: TOTAL PROTEIN 6.9 GM/DL (6.4-8.2)
--- NOTE | 2021-03-27 11:51 | Diagnostic Imaging Report ---
INDICATION: Cough, fatigue. COMPARISON: 09/06/2020. TECHNIQUE: Single frontal radiograph of the chest dated 03/27/2021. FINDINGS: The cardiac silhouette is within normal limits in size. No significant pulmonary vascular congestion. Evaluation of the lungs is slightly limited secondary to overlying soft tissues and body habitus. However, there is suggestion of possible mild left basilar opacities. No large-volume pleural effusion. No pneumothorax. No acute osseous abnormality. IMPRESSION: Limited exam suggests possible minimal left basilar atelectasis and/or infiltrate. Dictated by: Dictated on workstation # [id number]
[2021-03-27 11:53] LABS: BILIRUBIN,TOTAL 0.7 MG/DL (0.1-1.0)
[2021-03-27 11:55] LABS: CREATININE SERUM 0.87 MG/DL (0.60-1.30)
[2021-03-27] MEDS ORDERED: ONDA8TAB13 PO (12:26)
[2021-03-27 12:27] VITALS: BP 113/78
[2021-03-28] MEDS ORDERED: ASPIRIN 81 MG CHEW (CHILDREN'S ASA) PO SCH (09:00)
== END 2021-03-27 12:27 | disposition home or self-care (01) ==
LOC: EDUNIT# 09:56 → ER 09:58
DX: B34.9 Viral infection, unspecified (principal); I10 Essential (primary) hypertension; F41.9 Anxiety disorder, unspecified; E66.01 Morbid (severe) obesity due to excess calories; Z20.822 Contact with and (suspected) exposure to COVID-19; Z68.43 Body mass index [BMI] 50.0-59.9, adult; Z79.899 Other long term (current) drug therapy
CPT/HCPCS: 36415; 71045; 80053; 85025; 86141; 87636; 93005

== ENCOUNTER 2021-05-30 16:23 | Emergency (ER) | payer SELFPAY ==
[~2021-05-30] VITALS: Ht 180.3 cm; Wt 182.0 kg
[~2021-05-30 16:23] MED LIST changes: +ONDA8TAB13 PO
[2021-05-30 17:13] LABS: BASOPHILS # (AUTO) 0.1 10^3/uL (0.0-0.1); BASOPHILS % (AUTO) 1 % (0-10); EOSINOPHILS # (AUTO) 0.1 10^3/uL (0.0-0.3); EOSINOPHILS % (AUTO) 2 % (0-10); HEMATOCRIT 45 % (40-54); HEMOGLOBIN 14.7 g/dL (13.3-17.7); LYMPHOCYTES # (AUTO) 1.5 10^3/uL (1.0-4.0); LYMPHOCYTES % (AUTO) 22 % (12-44); MEAN CORPUSCULAR HEMOGLOBIN 28 pg (25-34); MEAN CORPUSCULAR HGB CONC 33 g/dL (32-36); MEAN CORPUSCULAR VOLUME 84 fL (80-99); MONOCYTES # (AUTO) 0.4 10^3/uL (0.0-1.0); MONOCYTES % (AUTO) 6 % (0-12); NEUTROPHILS # (AUTO) 4.7 10^3/uL (1.8-7.8); NEUTROPHILS % (AUTO) 69 % (42-75); PLATELET COUNT 206 10^3/uL (130-400); WHITE BLOOD COUNT 6.8 10^3/uL (4.3-11.0)
[2021-05-30] MEDS ORDERED: ASPIRIN 81 MG CHEW (CHILDREN'S ASA) PO ONE (17:15)
[2021-05-30 17:22] LABS: ALBUMIN 4.4 GM/DL (3.2-4.5); POTASSIUM 3.4 MMOL/L (3.6-5.0)
[2021-05-30 17:24] LABS: CALCIUM 9.9 MG/DL (8.5-10.1)
--- NOTE | 2021-05-30 17:26 | Diagnostic Imaging Report ---
EXAMINATION: Chest 1 view HISTORY: Chest pain COMPARISON: 03/27/2021 FINDINGS: The lungs are clear without edema or pneumonia. No pleural effusion or pneumothorax. Heart size is normal. IMPRESSION: 1. Clear lungs. Dictated by: Dictated on workstation # [id number]
[2021-05-30 17:27] LABS: BILIRUBIN,TOTAL 0.6 MG/DL (0.1-1.0)
[2021-05-30 17:28] LABS: CREATININE SERUM 0.98 MG/DL (0.60-1.30)
[2021-05-30 17:31] LABS: MAGNESIUM 2.4 MG/DL (1.6-2.4)
--- NOTE | 2021-05-30 17:41 | ED Cardiac General ---
History of Present Illness General Chief Complaint: Chest Pain Stated Complaint: CHEST PAIN, SOB Nursing Triage Note: PT AMB TO RM 9 WITH COMPLAINT OF CP, RAPID HR, SOA THAT STARTED YESTERDAY. History of Present Illness Date Seen by Provider: May 30, 2021 Time Seen by Provider: 17:15 Initial Comments 30-year-old morbidly obese male presents for episodes of tachycardia and intermittent chest pain feels like a pinching sensation. Symptoms have been present for at least 24 hours. Patient has had chronic intermittent chest pain for the last 2 to 3 years. He has had a heart cath in the past and told he did not have CAD. He is a borderline diabetic. He is supposed to be on a statin but has not taken it for at least a year. He has a history of sleep apnea but is not using a CPAP. He started working at [employer] (drinking pop through his shifts and because of poor sleep, drinks energy drinks) in October 2020, he is not good about keeping appointments for follow-up. He does not take aspirin daily. Timing/Duration: 24 hours Severity: mild Location: substernal Prior CP/Workup: cardiac cath, stress test NTG SL E MAIL SYSTEM ADMINISTRATOR: No ASA po E MAIL SYSTEM ADMINISTRATOR: No Associated Systoms: Chest Pain; No Cough, No Headaches, No Loss of Appetite; Malaise; No Nausea/Vomiting; Shortness of Air (Chronic due to body habitus) Allergies and Home Medications Allergies Coded Allergies: No Known Drug Allergies (Unverified , 09/21/19) Patient Home Medication List Home Medication List Reviewed: Yes Atorvastatin Calcium (Lipitor) 10 Mg Tablet, 10 MG PO DAILY Prescribed by: SARAY AVINA on 09/22/19 0821 Ondansetron (Ondansetron Odt) 8 Mg Tab.rapdis, 8 MG PO Q8H PRN for nausea Prescribed by: REGINALDO MONZON on 03/27/21 1226 Pantoprazole Sodium (Protonix) 40 Mg Tablet.dr, 40 MG PO DAILY Prescribed by: JOE DAVE on 05/30/21 181 Sertraline HCl (Sertraline HCl) 25 Mg Tablet, 25 MG PO DAILY Prescribed by: GUIDO GIRALDO on 09/06/20 1447 Review of Systems Review of Systems Constitutional: no symptoms reported, see HPI Respiratory: No Symptoms Reported, See HPI, Shortness of Air (Chronic) Cardiovascular: See HPI, Chest Pain Gastrointestinal: No Symptoms Reported, See HPI All Other Systems Reviewed Negative Unless Noted: Yes Past Agydyji-Rrpoat-Axxtuc Hx Patient Social History Tobacco Use?: No Use of E-Cig and/or Vaping dev: No Substance use?: No Alcohol Use?: No Pt feels they are or have been: No Immunizations Up To Date Tetanus Booster (TDap): Unknown First/Initial COVID19 Vaccinat: 07/2020 Second COVID19 Vaccination Jim: 07/2020 Third COVID19 Vaccination Date: 07/2020 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 ) HEENT: Yes (POOR DENTITION) Cancer: No Psychosocial: No Anxiety Integumentary: No Blood Disorders: No Adverse Reaction/Blood Tranf: No Family Medical History Reviewed Nursing Family Hx Physical Exam Vital Signs Vital Signs - First Documented 05/30/21 16:57 Temp 36.7 Pulse 77 Resp 25 B/P (MAP) 168/87 (114) Pulse Ox 98 O2 Delivery Room Air Capillary Refill : Less Than 3 Seconds Height, Weight, BMI Height: 5'11.00" Weight: 450lbs. oz. 204.784166hb; 55.00 BMI Method:Stated General Appearance: WD/WN, Obese HEENT: PERRL/EOMI, TMs Normal, Normal ENT Inspection, Pharynx Normal Neck: Full Range of Motion, Normal Inspection, Non Tender, Supple Respiratory: Chest Non Tender, Lungs Clear, Normal Breath Sounds Cardiovascular: Regular Rate, Rhythm, No Edema, No Murmur, Normal Peripheral Pulses Gastrointestinal: Normal Bowel Sounds, Non Tender, Soft, Distended Neurologic/Psychiatric: Alert, Oriented x3, No Motor/Sensory Deficits, 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 Skin: Normal Color, Warm/Dry Progress/Results/Core Measures Results/Orders Lab Results Laboratory Tests Test 05/30/21 17:04 Range/Units White Blood Count 6.8 4.3-11.0 10^3/uL Red Blood Count 5.33 4.30-5.52 10^6/uL Hemoglobin 14.7 13.3-17.7 g/dL Hematocrit 45 40-54 % Mean Corpuscular Volume 84 80-99 fL Mean Corpuscular Hemoglobin 28 25-34 pg Mean Corpuscular Hemoglobin Concent 33 32-36 g/dL Red Cell Distribution Width 13.5 10.0-14.5 % Platelet Count 206 130-400 10^3/uL Mean Platelet Volume 13.0 H 9.0-12.2 fL Immature Granulocyte % (Auto) 0 % Neutrophils (%) (Auto) 69 42-75 % Lymphocytes (%) (Auto) 22 12-44 % Monocytes (%) (Auto) 6 0-12 % Eosinophils (%) (Auto) 2 0-10 % Basophils (%) (Auto) 1 0-10 % Neutrophils # (Auto) 4.7 1.8-7.8 10^3/uL Lymphocytes # (Auto) 1.5 1.0-4.0 10^3/uL Monocytes # (Auto) 0.4 0.0-1.0 10^3/uL Eosinophils # (Auto) 0.1 0.0-0.3 10^3/uL Basophils # (Auto) 0.1 0.0-0.1 10^3/uL Immature Granulocyte # (Auto) 0.0 0.0-0.1 10^3/uL Prothrombin Time 13.0 12.2-14.7 SEC INR Comment 1.0 0.8-1.4 Activated Partial Thromboplast Time 27 24-35 SEC Sodium Level 141 135-145 MMOL/L Potassium Level 3.4 L 3.6-5.0 MMOL/L Chloride Level 106 98-107 MMOL/L Carbon Dioxide Level 22 21-32 MMOL/L Anion Gap 13 5-14 MMOL/L Blood Urea Nitrogen 10 7-18 MG/DL Creatinine 0.98 0.60-1.30 MG/DL Estimat Glomerular Filtration Rate 106 BUN/Creatinine Ratio 10 Glucose Level 103 70-105 MG/DL Calcium Level 9.9 8.5-10.1 MG/DL Corrected Calcium 9.6 8.5-10.1 MG/DL Magnesium Level 2.4 1.6-2.4 MG/DL Total Bilirubin 0.6 0.1-1.0 MG/DL Aspartate Amino Transf (AST/SGOT) 19 5-34 U/L Alanine Aminotransferase (ALT/SGPT) 32 0-55 U/L Alkaline Phosphatase 50 40-136 U/L Myoglobin 50.9 10.0-92.0 NG/ML Troponin I < 0.028 <0.028 NG/ML Total Protein 8.0 6.4-8.2 GM/DL Albumin 4.4 3.2-4.5 GM/DL My Orders Orders - JOE DAVE SENIOR RESIDENT CARE DIRECTOR Cbc With Automated Diff (05/30/21 17:04) Magnesium (05/30/21 17:04) Chest 1 View, Ap/Pa Only (05/30/21 17:04) Ekg Tracing (05/30/21 17:04) Comprehensive Metabolic Panel (05/30/21 17:04) Myoglobin Serum (05/30/21 17:04) Protime With Inr (05/30/21 17:04) Partial Thromboplastin Time (05/30/21 17:04) O2 (05/30/21 17:04) Monitor-Rhythm Ecg Trace Only (05/30/21 17:04) Ed Iv/Invasive Line Start (05/30/21 17:04) Troponin I [place] (05/30/21 17:04) Aspirin Chewable Tablet (Baby Aspirin Ch (05/30/21 17:15) Ondansetron Injection (Zofran Injectio (05/30/21 18:15) Medications Given in ED Current Medications Medications Dose Ordered Sig/Vahid Route Start Time Stop Time Status Last Admin Dose Admin Aspirin 324 mg ONCE ONCE PO 05/30/21 17:15 05/30/21 17:16 DC 05/30/21 17:07 324 MG Ondansetron HCl 8 mg ONCE ONCE IVP 05/30/21 18:15 05/30/21 18:16 DC 05/30/21 18:35 8 MG Vital Signs/I&O 05/30/21 05/30/21 16:57 18:40 Temp 36.7 Pulse 77 71 Resp 25 16 B/P (MAP) 168/87 (114) 163/96 Pulse Ox 98 98 O2 Delivery Room Air Room Air Blood Pressure Mean: 114 Progress Progress Note : Time: 17:15 Progress Note Patient seen and evaluated, will obtain labs, EKG, chest x-ray, and give aspirin 324 mg orally. 1800 work-up essentially normal. Discussed in depth with the patient and his lifestyle, with limited activity level and high risk for many chronic diseases. He does report that he is trying to lose weight. He is also trying to set up appointments at [facility] and with a finisher tailor apprentice. He would like to resume taking a statin. Also stressed the importance of getting a CPAP for the sleep apnea. He is agreeable to making some changes. Initial ECG Impression Date: May 30, 2021 Initial ECG Impression Time: 17:01 Initial ECG Rate: 86 Initial ECG Rhythm: Normal Sinus Initial ECG Intervals: Normal Initial ECG Intervals MA 170, QRSD 101, QT 366, QTc 438 [place] P 10, QRS 18, T 44 Initial ECG Impression: Normal Initial ECG Comparisson: Unchanged Diagnostic Imaging Diagonstic Imaging: Xray Plain Films/CT/US/NM/MRI: chest Comments NAME: RONNI STONE [facility] REC#: [id number] PT STATUS: DEP ER : 1990 PHYSICIAN: JOE DAVE ADMIT DATE: 05/30/21/ER Signed Date of Exam:05/30/21 CHEST 1 VIEW, AP/PA ONLY EXAMINATION: Chest 1 view HISTORY: Chest pain COMPARISON: 03/27/2021 FINDINGS: The lungs are clear without edema or pneumonia. No pleural effusion or pneumothorax. Heart size is normal. IMPRESSION: 1. Clear lungs. Dictated by: Dictated on workstation # [id number] Dict: 05/30/211721 Trans: 05/30/211958 CV [id number] Interpreted by: MICHELE SPENCE MD Electronically signed by: MICHELE SPENCE MD 05/30/211958 Reviewed: Reviewed by Me Departure Impression Primary Impression: Morbid obesity Additional Impressions: Sleep apnea Qualified Codes: G47.30 - Sleep apnea, unspecified Chest pain not due to acute coronary syndrome Disposition: HOME, SELF-CARE Condition: Stable Departure-Patient Inst. Decision time for Depature: 18:00 Referrals: NO,LOCAL PHYSICIAN (PCP/Family) Primary Care Physician Patient Instructions: Chest Pain That Is Not Caused by the Heart (DC) Add. Discharge Instructions: Take Aspirin 81 mg daily. Keep your appt with [facility], see about sleep apnea and getting C-PAP. Take Protonix, as prescribed Follow up with Dr. Kirstin. Decrease or eliminate pop from your diet, increase water intake. Do not consume energy drinks. Return to the emergency department for new, urgent healthcare problems. All discharge instructions reviewed with patient and/or family. Voiced understanding. Scripts Pantoprazole Sodium (Protonix) 40 Mg Tablet. 40 MG PO DAILY for 30 Days, #30 TAB 0 Refills Prov: JOE DAVE 05/30/21 JOE DAVE May 30, 2021 17:41
[2021-05-30] MEDS ORDERED: PANT40TA2 PO (18:13)
[2021-05-30] MEDS ORDERED: ONDANSETRON 4 MG/2 ML (SDV) Z0FRAN IVP ONE (18:15)
[2021-05-30 18:40] VITALS: BP 163/96
== END 2021-05-30 18:40 | disposition home or self-care (01) ==
LOC: EDUNIT# 16:23 → ER 16:25
DX: E66.01 Morbid (severe) obesity due to excess calories (principal); G47.30 Sleep apnea, unspecified; R07.9 Chest pain, unspecified; Z68.43 Body mass index [BMI] 50.0-59.9, adult
CPT/HCPCS: 36415; 71045; 80053; 83735; 83874; 84484; 85025; 85610; 85730; 93005; 93041

== ENCOUNTER 2021-06-14 14:04 | Emergency (ER) | payer SELFPAY ==
[~2021-06-14] VITALS: Ht 180.3 cm; Wt 187.0 kg
--- NOTE | 2021-06-14 14:23 | ED General ---
General Stated Complaint: NAUSEA/DIZZY/SOA/WEAKNESS Source of Information: Patient Exam Limitations: No Limitations (GUIDO GIRALDO APRN) History of Present Illness Date Seen by Provider: Jun 14, 2021 Time Seen by Provider: 14:21 Initial Comments To ER with sudden onset of nausea dizziness shortness of breath and weakness this morning a couple of hours ago.No fevers. Has had 3 covid vaccines. Timing/Duration: 1-2 Days Severity: Moderate Associated Systoms: Nausea/Vomiting (GUIDO GIRALDO APRN) Allergies and Home Medications Allergies Coded Allergies: No Known Drug Allergies (Unverified , 09/21/19) Patient Home Medication List Home Medication List Reviewed: Yes (GUIDO GIRALDO APRN) Atorvastatin Calcium (Lipitor) 10 Mg Tablet, 10 MG PO DAILY Prescribed by: SARAY AVINA on 09/22/19 0821 Ondansetron (Ondansetron Odt) 8 Mg Tab.rapdis, 8 MG PO Q8H PRN for nausea Prescribed by: REGINALDO MONZON on 03/27/21 1226 Pantoprazole Sodium (Protonix) 40 Mg Tablet.dr, 40 MG PO DAILY Prescribed by: JOE DAVE on 05/30/21 1813 Sertraline HCl (Sertraline HCl) 25 Mg Tablet, 25 MG PO DAILY Prescribed by: GUIDO GIRALDO on 09/06/20 1447 Review of Systems Review of Systems Constitutional: see HPI EENTM: see HPI Respiratory: no symptoms reported Cardiovascular: no symptoms reported Genitourinary: no symptoms reported Musculoskeletal: no symptoms reported Skin: no symptoms reported Psychiatric/Neurological: No Symptoms Reported Hematologic/Lymphatic: No Symptoms Reported Immunological/Allergic: no symptoms reported (GUIDO GIRALDO APRN) Past Orwbyzt-Tbjvyq-Urcpwu Hx Immunizations Up To Date Tetanus Booster (TDap): Unknown First/Initial COVID19 Vaccinat: 07/2020 Second COVID19 Vaccination Jim: 07/2020 Third COVID19 Vaccination Date: 07/2020 (GUIDO GIRALDO APRN) Seasonal Allergies Seasonal Allergies: No (GUIDO GIRALDO APRN) Past Medical History Surgeries: No Respiratory: No Pneumonia Currently Using CPAP: No Currently Using BIPAP: No Cardiac: Yes Hypertension Neurological: Yes Headaches /Migraines Reproductive Disorders: No Genitourinary: No Kidney Stones Gastrointestinal: Yes Chronic Diarrhea, Irritable Bowel Musculoskeletal: No Endocrine: No (MORBID OBESITY--> 400 LBS. ) HEENT: Yes (POOR DENTITION) Cancer: No Psychosocial: No Anxiety Integumentary: No Blood Disorders: No Adverse Reaction/Blood Tranf: No (GUIDO GIRALDO APRN) Physical Exam Vital Signs Vital Signs - First Documented 06/14/21 14:14 Temp 36.2 Pulse 88 Resp 22 B/P (MAP) 172/98 (122) Pulse Ox 99 O2 Delivery Room Air (OZ SOLARES MD) Vital Signs Capillary Refill : (GUIDO GIRALDO APRN) Height, Weight, BMI Height: 5'11.00" Weight: 450lbs. oz. 204.433511ph; 55.00 BMI Method:Stated General Appearance: No Apparent Distress, WD/WN, Other (Alert oriented very pleasant no distress. Oxygen saturation a percent room air. Heart rate 88. Abdomen is nontender.) Eyes: Bilateral Eye Normal Inspection, Bilateral Eye PERRL, Bilateral Eye EOMI Neck: Full Range of Motion, Normal Inspection Respiratory: No Accessory Muscle Use, No Respiratory Distress Cardiovascular: Regular Rate, Rhythm, Normal Peripheral Pulses Gastrointestinal: Normal Bowel Sounds, Non Tender, Soft Extremity: Normal Capillary Refill, Normal Inspection Neurologic/Psychiatric: Alert, Oriented x3 Skin: Normal Color, Warm/Dry (GUIDO GIRALDO APRN) Progress/Results/Core Measures Suspected Sepsis SIRS Temperature: Pulse: Respiratory Rate: Laboratory Tests 06/14/21 14:14: White Blood Count 5.9 Blood Pressure / Mean: Laboratory Tests 06/14/21 14:14: Creatinine 0.94, Platelet Count 198, Total Bilirubin 0.6 (GUIDO GIRALDO APRN) Results/Orders Lab Results Laboratory Tests Test 06/14/21 14:14 Range/Units White Blood Count 5.9 4.3-11.0 10^3/uL Red Blood Count 5.27 4.30-5.52 10^6/uL Hemoglobin 14.5 13.3-17.7 g/dL Hematocrit 45 40-54 % Mean Corpuscular Volume 85 80-99 fL Mean Corpuscular Hemoglobin 28 25-34 pg Mean Corpuscular Hemoglobin Concent 32 32-36 g/dL Red Cell Distribution Width 13.5 10.0-14.5 % Platelet Count 198 130-400 10^3/uL Mean Platelet Volume 13.0 H 9.0-12.2 fL Immature Granulocyte % (Auto) 0 % Neutrophils (%) (Auto) 68 42-75 % Lymphocytes (%) (Auto) 21 12-44 % Monocytes (%) (Auto) 7 0-12 % Eosinophils (%) (Auto) 2 0-10 % Basophils (%) (Auto) 1 0-10 % Neutrophils # (Auto) 4.0 1.8-7.8 10^3/uL Lymphocytes # (Auto) 1.3 1.0-4.0 10^3/uL Monocytes # (Auto) 0.4 0.0-1.0 10^3/uL Eosinophils # (Auto) 0.1 0.0-0.3 10^3/uL Basophils # (Auto) 0.0 0.0-0.1 10^3/uL Immature Granulocyte # (Auto) 0.0 0.0-0.1 10^3/uL Sodium Level 139 135-145 MMOL/L Potassium Level 4.1 3.6-5.0 MMOL/L Chloride Level 107 98-107 MMOL/L Carbon Dioxide Level 23 21-32 MMOL/L Anion Gap 9 5-14 MMOL/L Blood Urea Nitrogen 12 7-18 MG/DL Creatinine 0.94 0.60-1.30 MG/DL Estimat Glomerular Filtration Rate 112 BUN/Creatinine Ratio 13 Glucose Level 109 H 70-105 MG/DL Calcium Level 9.2 8.5-10.1 MG/DL Corrected Calcium 9.1 8.5-10.1 MG/DL Total Bilirubin 0.6 0.1-1.0 MG/DL Aspartate Amino Transf (AST/SGOT) 19 5-34 U/L Alanine Aminotransferase (ALT/SGPT) 33 0-55 U/L Alkaline Phosphatase 51 40-136 U/L B-Type Natriuretic Peptide 27.7 <100.0 PG/ML Total Protein 7.4 6.4-8.2 GM/DL Albumin 4.1 3.2-4.5 GM/DL Lipase 26 8-78 U/L Influenza Type A (RT-PCR) Not Detected Not Detecte Influenza Type B (RT-PCR) Not Detected Not Detecte SARS-CoV-2 RNA (RT-PCR) Not Detected Not Detecte (ZO SOLARES MD) My Orders Orders - BRUEGGEMANN,ZO T MD Covid 19 Inhouse Test (06/14/21 14:14) Influenza A And B By Pcr (06/14/21 14:14) (ZO SOLARES MD) Medications Given in ED Current Medications Medications Dose Ordered Sig/Vahid Route Start Time Stop Time Status Last Admin Dose Admin Ketorolac Tromethamine 15 mg ONCE ONCE IVP 06/14/21 14:30 06/14/21 14:31 DC 06/14/21 14:28 15 MG Ondansetron HCl 8 mg ONCE ONCE IVP 06/14/21 14:30 06/14/21 14:31 DC 06/14/21 14:28 8 MG (ZO SOLARES MD) Vital Signs/I&O 06/14/21 06/14/21 14:14 15:49 Temp 36.2 Pulse 88 79 Resp 22 20 B/P (MAP) 172/98 (122) 152/89 Pulse Ox 99 99 O2 Delivery Room Air Room Air (ZO SOLARES MD) Vital Signs/I&O Capillary Refill : (GUIDO GIRALDO APRN) Departure Impression Primary Impression: Nausea Additional Impression: Malaise and fatigue Disposition: 01 HOME, SELF-CARE Condition: Stable Departure-Patient Inst. Decision time for Depature: 15:08 (GUIDO GIRALDO APRN) Referrals: NO,LOCAL PHYSICIAN (PCP/Family) Primary Care Physician Patient Instructions: Fatigue (DC) Add. Discharge Instructions: 1. Return to ER for any concerns 2. Follow-up with your doctor next week 3. Work/School Note: Work Release Form Date Seen in the Emergency Department: Jun 14, 2021 Return to Work: Jun 17, 2021 ATTENDING PHYSICIAN NOTE: I was physically present as attending physician in the emergency department during the care of this patient, but I was not directly involved in the decision making or delivery of care for this patient. (ZO SOLARES MD) GUIDO GIRALDO APRN Jun 14, 2021 14:23 ZO SOLARES MD Jun 14, 2021 19:44
[2021-06-14 14:27] LABS: BASOPHILS % (AUTO) 1 % (0-10); EOSINOPHILS # (AUTO) 0.1 10^3/uL (0.0-0.3); EOSINOPHILS % (AUTO) 2 % (0-10); HEMATOCRIT 45 % (40-54); HEMOGLOBIN 14.5 g/dL (13.3-17.7); LYMPHOCYTES # (AUTO) 1.3 10^3/uL (1.0-4.0); LYMPHOCYTES % (AUTO) 21 % (12-44); MEAN CORPUSCULAR HEMOGLOBIN 28 pg (25-34); MEAN CORPUSCULAR HGB CONC 32 g/dL (32-36); MEAN CORPUSCULAR VOLUME 85 fL (80-99); MONOCYTES # (AUTO) 0.4 10^3/uL (0.0-1.0); MONOCYTES % (AUTO) 7 % (0-12); NEUTROPHILS % (AUTO) 68 % (42-75); PLATELET COUNT 198 10^3/uL (130-400); WHITE BLOOD COUNT 5.9 10^3/uL (4.3-11.0)
[2021-06-14] MEDS ORDERED: KETOROLAC 30 MG/ML VIAL IVP ONE (14:30)
[2021-06-14] MEDS ORDERED: LACTATED RINGERS 1,000 ML IV SCH (14:30)
[2021-06-14] MEDS ORDERED: ONDANSETRON 4 MG/2 ML (SDV) Z0FRAN IVP ONE (14:30)
[2021-06-14 14:45] LABS: ALBUMIN 4.1 GM/DL (3.2-4.5); BILIRUBIN,TOTAL 0.6 MG/DL (0.1-1.0); CALCIUM 9.2 MG/DL (8.5-10.1); CREATININE SERUM 0.94 MG/DL (0.60-1.30); POTASSIUM 4.1 MMOL/L (3.6-5.0); TOTAL PROTEIN 7.4 GM/DL (6.4-8.2)
[2021-06-14] MEDS ORDERED: LORazepam INJ 2 MG/ML (ATIVAN) VIAL IVP PRN (15:45)
[2021-06-14 15:49] VITALS: BP 152/89
== END 2021-06-14 15:49 | disposition home or self-care (01) ==
LOC: EDUNIT# 14:04 → ER 14:08
DX: R11.0 Nausea (principal); R53.81 Other malaise; R53.83 Other fatigue; Z20.822 Contact with and (suspected) exposure to COVID-19
CPT/HCPCS: 36415; 80053; 83690; 83880; 85025; 87636; 93005

== ENCOUNTER 2021-08-26 17:14 | Emergency (ER) | payer SELFPAY ==
[~2021-08-26] VITALS: Ht 180 cm; Wt 187.0 kg
--- NOTE | 2021-08-26 17:29 | ED Chest Pain ---
General Stated Complaint: CP/STOMACH PAIN Source: patient Exam Limitations: no limitations History of Present Illness Date Seen by Provider: August 26, 2021 Time Seen by Provider: 17:26 Initial Comments To ER by private vehicle with reports of epigastric and chest pain sharp in nature and intermittent since yesterday. No fevers or chills. He does have some associated nausea with no vomiting. He had diarrhea once today. He states that he has been urinating a lot but he also drank about 100 ounces of water while at work at [employer]. he is currently on amoxicillin for a dental infection. He does report that he feels anxious. Timing/Duration: 24 hours, changing over time Severity/Quality: moderate Location: central Radiation: no radiation Activities at Onset: none Allergies and Home Medications Allergies Coded Allergies: No Known Drug Allergies (Unverified , 09/21/19) Patient Home Medication List Home Medication List Reviewed: Yes Atorvastatin Calcium (Lipitor) 10 Mg Tablet, 10 MG PO DAILY Prescribed by: SARAY AVINA on 09/22/19 0821 Ondansetron (Ondansetron Odt) 8 Mg Tab.rapdis, 8 MG PO Q8H PRN for nausea Prescribed by: REGINALDO MONZON on 03/27/21 1226 Pantoprazole Sodium (Protonix) 40 Mg Tablet.dr, 40 MG PO DAILY Prescribed by: JOE DAVE on 05/30/21 1813 Sertraline HCl (Sertraline HCl) 25 Mg Tablet, 25 MG PO DAILY Prescribed by: GUIDO GIRALDO on 09/06/20 1447 Review of Systems Review of Systems Constitutional: see HPI EENTM: No Symptoms Reported Respiratory: No Symptoms Reported Cardiovascular: No Symptoms Reported Gastrointestinal: See HPI, Abdominal Pain Genitourinary: No Symptoms Reported Musculoskeletal: no symptoms reported Skin: no symptoms reported Psychiatric/Neurological: No Symptoms Reported Endocrine: No Symptoms Reported Hematologic/Lymphatic: No Symptoms Reported Past Lbmjsfv-Xdockg-Wdlxmt Hx Immunizations Up To Date Tetanus Booster (TDap): Unknown First/Initial COVID19 Vaccinat: 07/2020 Second COVID19 Vaccination Jim: 07/2020 Third COVID19 Vaccination Date: 03/13/21 Seasonal Allergies Seasonal Allergies: No Past Medical History Surgeries: No Respiratory: No Pneumonia Currently Using CPAP: No Currently Using BIPAP: No Cardiac: Yes Hypertension Neurological: Yes Headaches /Migraines Reproductive Disorders: No Genitourinary: No Kidney Stones Gastrointestinal: Yes Chronic Diarrhea, Irritable Bowel Musculoskeletal: No Endocrine: No (MORBID OBESITY--> 400 LBS. ) HEENT: Yes (POOR DENTITION) Cancer: No Psychosocial: No Anxiety Integumentary: No Blood Disorders: No Adverse Reaction/Blood Tranf: No Physical Exam Vital Signs Vital Signs - First Documented 08/26/21 17:34 Temp 36.4 Pulse 80 Resp 24 B/P (MAP) 163/115 (131) Pulse Ox 96 Capillary Refill : Height, Weight, BMI Height: 5'11.00" Weight: 450lbs. oz. 204.733305wl; 57.00 BMI Method:Stated General Appearance: No Apparent Distress, WD/WN, Obese (413 pounds), Other (Hemodynamically stable without tachycardia hypotension or hypoxia) HEENT: PERRL/EOMI, TMs Normal Respiratory: Normal Breath Sounds, No Accessory Muscle Use Gastrointestinal: Normal Bowel Sounds, Non Tender, Soft Extremity: Normal Capillary Refill Neurologic/Psychiatric: Alert, Oriented x3 Skin: Normal Color, Warm/Dry Progress/Results/Core Measures Results/Orders Lab Results Laboratory Tests Test 08/26/21 17:28 Range/Units White Blood Count 8.4 4.3-11.0 10^3/uL Red Blood Count 5.20 4.30-5.52 10^6/uL Hemoglobin 14.3 13.3-17.7 g/dL Hematocrit 44 40-54 % Mean Corpuscular Volume 84 80-99 fL Mean Corpuscular Hemoglobin 28 25-34 pg Mean Corpuscular Hemoglobin Concent 33 32-36 g/dL Red Cell Distribution Width 13.9 10.0-14.5 % Platelet Count 189 130-400 10^3/uL Mean Platelet Volume 13.7 H 9.0-12.2 fL Immature Granulocyte % (Auto) 1 % Neutrophils (%) (Auto) 69 42-75 % Lymphocytes (%) (Auto) 21 12-44 % Monocytes (%) (Auto) 7 0-12 % Eosinophils (%) (Auto) 2 0-10 % Basophils (%) (Auto) 1 0-10 % Neutrophils # (Auto) 5.8 1.8-7.8 10^3/uL Lymphocytes # (Auto) 1.8 1.0-4.0 10^3/uL Monocytes # (Auto) 0.6 0.0-1.0 10^3/uL Eosinophils # (Auto) 0.2 0.0-0.3 10^3/uL Basophils # (Auto) 0.1 0.0-0.1 10^3/uL Immature Granulocyte # (Auto) 0.0 0.0-0.1 10^3/uL Percent Immature Platelet Fraction 18.7 H 0.0-7.6 % Prothrombin Time 13.5 12.2-14.7 SEC INR Comment 1.0 0.8-1.4 Activated Partial Thromboplast Time 27 24-35 SEC Sodium Level 139 135-145 MMOL/L Potassium Level 3.8 3.6-5.0 MMOL/L Chloride Level 104 98-107 MMOL/L Carbon Dioxide Level 22 21-32 MMOL/L Anion Gap 13 5-14 MMOL/L Blood Urea Nitrogen 10 7-18 MG/DL Creatinine 1.01 0.60-1.30 MG/DL Estimat Glomerular Filtration Rate 103 BUN/Creatinine Ratio 10 Glucose Level 101 70-105 MG/DL Calcium Level 9.7 8.5-10.1 MG/DL Corrected Calcium 9.4 8.5-10.1 MG/DL Magnesium Level 2.2 1.6-2.4 MG/DL Total Bilirubin 0.6 0.1-1.0 MG/DL Aspartate Amino Transf (AST/SGOT) 26 5-34 U/L Alanine Aminotransferase (ALT/SGPT) 53 0-55 U/L Alkaline Phosphatase 56 40-136 U/L Myoglobin 57.3 10.0-92.0 NG/ML Troponin I < 0.028 <0.028 NG/ML B-Type Natriuretic Peptide 13.9 <100.0 PG/ML Total Protein 7.7 6.4-8.2 GM/DL Albumin 4.4 3.2-4.5 GM/DL My Orders Orders - GUIDO GIRALDO APRN Ekg Tracing (08/26/21 17:21) Cbc With Automated Diff (08/26/21 17:23) Magnesium (08/26/21 17:23) Chest 1 View, Ap/Pa Only (08/26/21 17:23) Ekg Tracing (08/26/21 17:23) Comprehensive Metabolic Panel (08/26/21 17:23) Myoglobin Serum (08/26/21 17:23) Protime With Inr (08/26/21 17:23) Partial Thromboplastin Time (08/26/21 17:23) O2 (08/26/21 17:23) Monitor-Rhythm Ecg Trace Only (08/26/21 17:23) Lipid Panel (08/27/21 06:00) Ed Iv/Invasive Line Start (08/26/21 17:23) Bnp Vick (08/26/21 17:23) Troponin I Vick (08/26/21 17:23) Aspirin Chewable Tablet (Baby Aspirin Ch (08/26/21 17:30) Lidocaine 2% Viscous 15 Ml (Xylocaine Vi (08/26/21 17:30) Antacid Suspension (Mylanta Suspension (08/26/21 17:30) Lorazepam Injection (Ativan Injection) (08/26/21 17:30) Medications Given in ED Current Medications Medications Dose Ordered Sig/Vahid Route Start Time Stop Time Status Last Admin Dose Admin Al Hydrox/Mg Hydrox/Simethicone 30 ml ONCE ONCE PO 08/26/21 17:30 08/26/21 17:31 DC 08/26/21 17:52 30 ML Aspirin 324 mg ONCE ONCE PO 08/26/21 17:30 08/26/21 17:31 DC 08/26/21 17:52 324 MG Lidocaine HCl 15 ml ONCE ONCE PO 08/26/21 17:30 08/26/21 17:31 DC 08/26/21 17:52 15 ML Lorazepam 0.5 mg ONCE ONCE IVP 08/26/21 17:30 08/26/21 17:31 DC 08/26/21 17:52 0.5 MG Vital Signs/I&O 08/26/21 17:34 Temp 36.4 Pulse 80 Resp 24 B/P (MAP) 163/115 (131) Pulse Ox 96 Departure Communication (Admissions) NAME: RONNI STONE MED REC#: [id number] STATUS: REG ER : 1990 PHYSICIAN: GUIDO GIRALDO APRN ADMIT DATE: 08/26/21/ER Signed Date of Exam:08/26/21 CHEST 1 VIEW, AP/PA ONLY CHEST 1 VIEW, AP/PA ONLY Indication: Chest pain. Comparison: 05/30/2021 Findings: No focal airspace disease in the visualized lungs. Please note that the posterior lower lobes are poorly evaluated by portable radiography. No pleural effusion or pneumothorax. Normal cardiomediastinal silhouette. Impression: 1. No acute cardiopulmonary process by portable radiography. Dictated by: Dictated on workstation # [id number] Dict: 08/26/211803 Trans: 08/26/211803 [facility] [id number] Interpreted by: BROOKE AVILA MD Electronically signed by: BROOKE AVILA MD 08/26/211803 Impression Primary Impression: Chest pain not due to acute coronary syndrome Disposition: 01 HOME, SELF-CARE Condition: Stable Departure-Patient Inst. Decision time for Depature: 18:41 Referrals: NO,LOCAL PHYSICIAN (PCP/Family) Primary Care Physician Patient Instructions: Acute Pain, Adult (DC) GUIDO GIRALDO APRN August 26, 2021 17:29
[2021-08-26] MEDS ORDERED: LORazepam INJ 2 MG/ML (ATIVAN) VIAL IVP ONE (17:30)
[2021-08-26] MEDS ORDERED: ASPIRIN 81 MG CHEW (CHILDREN'S ASA) PO ONE (17:30)
[2021-08-26] MEDS ORDERED: ANTACID SUSP 30 ML UDC (MYLANTA) PO ONE (17:30)
[2021-08-26] MEDS ORDERED: LIDOCAINE 2% VISCOUS 15 ML UDC PO ONE (17:30)
[2021-08-26 17:49] LABS: BASOPHILS # (AUTO) 0.1 10^3/uL (0.0-0.1); BASOPHILS % (AUTO) 1 % (0-10); MEAN PLATELET VOLUME 13.7 fL (9.0-12.2)
[2021-08-26 17:51] LABS: EOSINOPHILS # (AUTO) 0.2 10^3/uL (0.0-0.3); EOSINOPHILS % (AUTO) 2 % (0-10); HEMATOCRIT 44 % (40-54); HEMOGLOBIN 14.3 g/dL (13.3-17.7); LYMPHOCYTES # (AUTO) 1.8 10^3/uL (1.0-4.0); LYMPHOCYTES % (AUTO) 21 % (12-44); MEAN CORPUSCULAR HEMOGLOBIN 28 pg (25-34); MEAN CORPUSCULAR HGB CONC 33 g/dL (32-36); MEAN CORPUSCULAR VOLUME 84 fL (80-99); MONOCYTES # (AUTO) 0.6 10^3/uL (0.0-1.0); MONOCYTES % (AUTO) 7 % (0-12); NEUTROPHILS # (AUTO) 5.8 10^3/uL (1.8-7.8); NEUTROPHILS % (AUTO) 69 % (42-75); PLATELET COUNT 189 10^3/uL (130-400); WHITE BLOOD COUNT 8.4 10^3/uL (4.3-11.0)
[2021-08-26 17:59] LABS: ALBUMIN 4.4 GM/DL (3.2-4.5)
[2021-08-26 18:00] LABS: POTASSIUM 3.8 MMOL/L (3.6-5.0)
[2021-08-26 18:01] LABS: CALCIUM 9.7 MG/DL (8.5-10.1)
[2021-08-26 18:02] LABS: TOTAL PROTEIN 7.7 GM/DL (6.4-8.2)
[2021-08-26 18:04] LABS: BILIRUBIN,TOTAL 0.6 MG/DL (0.1-1.0)
[2021-08-26 18:06] LABS: CREATININE SERUM 1.01 MG/DL (0.60-1.30)
--- NOTE | 2021-08-26 18:06 | Diagnostic Imaging Report ---
CHEST 1 VIEW, AP/PA ONLY Indication: Chest pain. Comparison: 05/30/2021 Findings: No focal airspace disease in the visualized lungs. Please note that the posterior lower lobes are poorly evaluated by portable radiography. No pleural effusion or pneumothorax. Normal cardiomediastinal silhouette. Impression: 1. No acute cardiopulmonary process by portable radiography. Dictated by: Dictated on workstation # [id number]
[2021-08-26 18:08] LABS: MAGNESIUM 2.2 MG/DL (1.6-2.4)
[2021-08-26 18:16] LABS: PROTHROMBIN TIME PATIENT 13.5 SEC (12.2-14.7)
[2021-08-26] MEDS ORDERED: RX-ONDANSETRON 4 MG ODT (ZOFRAN) PPK #4 PO STA (18:53)
[2021-08-26] MEDS ORDERED: RX-ONDANSETRON 4 MG ODT (ZOFRAN) PPK #4 ONE (18:53)
[2021-08-26 18:57] VITALS: BP 167/112
== END 2021-08-26 18:57 | disposition home or self-care (01) ==
LOC: EDUNIT# 17:14 → ER 17:15
DX: R07.89 Other chest pain (principal); E66.01 Morbid (severe) obesity due to excess calories; Z68.43 Body mass index [BMI] 50.0-59.9, adult
CPT/HCPCS: 36415; 71045; 80053; 83735; 83874; 83880; 84484; 85025; 85610; 85730; 93005; 93041

== ENCOUNTER 2021-09-03 09:43 | Emergency (ER) | payer SELFPAY ==
[~2021-09-03] VITALS: Ht 180 cm; Wt 186.0 kg
[2021-09-03 09:43] VITALS: BP 187/100
[2021-09-03] MEDS ORDERED: KETOROLAC 30 MG/ML VIAL IVP ONE (10:15)
[2021-09-03 10:19] LABS: BASOPHILS # (AUTO) 0.1 10^3/uL (0.0-0.1); BASOPHILS % (AUTO) 1 % (0-10); EOSINOPHILS # (AUTO) 0.1 10^3/uL (0.0-0.3); EOSINOPHILS % (AUTO) 2 % (0-10); HEMATOCRIT 43 % (40-54); LYMPHOCYTES # (AUTO) 1.4 10^3/uL (1.0-4.0); LYMPHOCYTES % (AUTO) 24 % (12-44); MEAN CORPUSCULAR HEMOGLOBIN 28 pg (25-34); MEAN CORPUSCULAR HGB CONC 33 g/dL (32-36); MEAN CORPUSCULAR VOLUME 84 fL (80-99); MEAN PLATELET VOLUME 13.7 fL (9.0-12.2); MONOCYTES # (AUTO) 0.4 10^3/uL (0.0-1.0); MONOCYTES % (AUTO) 7 % (0-12); NEUTROPHILS # (AUTO) 3.8 10^3/uL (1.8-7.8); NEUTROPHILS % (AUTO) 66 % (42-75); PLATELET COUNT 169 10^3/uL (130-400); WHITE BLOOD COUNT 5.8 10^3/uL (4.3-11.0)
[2021-09-03 10:23] LABS: ALBUMIN 3.9 GM/DL (3.2-4.5); CHLORIDE 104 MMOL/L (98-107); POTASSIUM 3.8 MMOL/L (3.6-5.0); SODIUM 140 MMOL/L (135-145)
--- NOTE | 2021-09-03 10:23 | ED Chest Pain ---
General Chief Complaint: Chest Pain Stated Complaint: CHEST PAIN - SOA - NAUSEA Nursing Triage Note: ARRIVED VIA AMB TO ROOM 06 WITH COMPLAINTS OF CHEST PAIN X1 WEEK WITH BILAT SWELLING IN HIS FEET. WHEN ASKED WHAT MAKES A DIFFERENCE TODAY PT STATES IT IS INTURUPTING HIS SLEEP. Source: patient Exam Limitations: no limitations History of Present Illness Date Seen by Provider: Sep 03, 2021 Time Seen by Provider: 09:49 Initial Comments Patient to the ER by by private conveyance from home with chief complaint that he has been having some nocturnal chest pain feels like pressure in the mid sternum that woke him up since morning about 4:00 AM. He is also had some sharp stabbing pains under his left breast. He is been experiencing the same pain for the past several years. Dr. Fulton even did a cardiac catheterization which was no CAD a year ago. He has had other work-ups multiple times. He is been encouraged to seek counseling for anxiety which she has been hesitant to do until now. He is try GI cocktails with no relief of symptoms. He takes ibuprofen and Tylenol with no relief of symptoms. He has had extensive imaging in the past both of the ER and in his primary care office at [facility]. He is not on any antianxiety's. He was given a round of panic attack medication which she said just made him sleep but when he woke up he still had the same anxiety and eventually the pain in his chest would return. He has a lot of anxiety because his dad in his 50s of a heart attack. Allergies and Home Medications Allergies Coded Allergies: No Known Drug Allergies (Unverified , 09/21/19) Patient Home Medication List Home Medication List Reviewed: Yes Atorvastatin Calcium (Lipitor) 10 Mg Tablet, 10 MG PO DAILY Prescribed by: SARAY FULTON on 09/22/19 0821 Cyclobenzaprine HCl (Cyclobenzaprine HCl) 10 Mg Tablet, 10 MG PO Q8H PRN for SPASMS Prescribed by: EMMETT RANGEL on 09/03/21 1239 Ondansetron (Ondansetron Odt) 8 Mg Tab.rapdis, 8 MG PO Q8H PRN for nausea Prescribed by: REGINALDO MONZON on 03/27/21 1226 Pantoprazole Sodium (Protonix) 40 Mg Tablet.dr, 40 MG PO DAILY Prescribed by: JOE DAVE on 05/30/21 181 Sertraline HCl (Sertraline HCl) 25 Mg Tablet, 25 MG PO DAILY Prescribed by: GUIDO GIRALDO on 09/06/20 1447 Review of Systems Review of Systems Constitutional: No chills, No diaphoresis EENTM: No Blurred Vision, No Double Vision Respiratory: Denies Cough, Denies Orthopnea, Denies Shortness of Air Cardiovascular: Chest Pain; Denies Lightheadedness; Palpitations Gastrointestinal: Denies Abdominal Pain, Denies Constipated, Denies Diarrhea, Denies Nausea Genitourinary: Denies Burning, Denies Discharge Musculoskeletal: No back pain, No joint pain Psychiatric/Neurological: Anxiety; Denies Depressed All Other Systems Reviewed Negative Unless Noted: Yes Past Vzravlv-Zqpzph-Oovrkb Hx Patient Social History Tobacco Use?: No Use of E-Cig and/or Vaping dev: No Substance use?: No Immunizations Up To Date Tetanus Booster (TDap): Unknown First/Initial COVID19 Vaccinat: 07/2020 Second COVID19 Vaccination Jim: 07/2020 Third COVID19 Vaccination Date: 03/13/21 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 ) HEENT: Yes (POOR DENTITION) Cancer: No Psychosocial: No Anxiety Integumentary: No Blood Disorders: No Adverse Reaction/Blood Tranf: No Physical Exam Vital Signs Vital Signs - First Documented 09/03/21 09:43 Temp 36.3 Pulse 70 Resp 16 B/P (MAP) 187/100 (129) Pulse Ox 95 O2 Delivery Room Air Capillary Refill : Less Than 3 Seconds Height, Weight, BMI Height: 5'11.00" Weight: 450lbs. oz. 204.305745tm; 57.00 BMI Method:Stated General Appearance: WD/WN, Anxious, Obese HEENT: PERRL/EOMI, Pharynx Normal, Moist Mucous Membranes Neck: Full Range of Motion, Normal Inspection Respiratory: No Chest Non Tender; Lungs Clear, Normal Breath Sounds, No Accessory Muscle Use, No Respiratory Distress Cardiovascular: Regular Rate, Rhythm, No Edema Gastrointestinal: Normal Bowel Sounds, Non Tender, Soft (Reproducible chest pain) Extremity: Normal Capillary Refill, Normal Inspection, No Pedal Edema Neurologic/Psychiatric: Alert, Oriented x3 Skin: Normal Color, Warm/Dry Progress/Results/Core Measures Results/Orders Lab Results Laboratory Tests Test 09/03/21 09:55 Range/Units White Blood Count 5.8 4.3-11.0 10^3/uL Red Blood Count 5.09 4.30-5.52 10^6/uL Hemoglobin 14.0 13.3-17.7 g/dL Hematocrit 43 40-54 % Mean Corpuscular Volume 84 80-99 fL Mean Corpuscular Hemoglobin 28 25-34 pg Mean Corpuscular Hemoglobin Concent 33 32-36 g/dL Red Cell Distribution Width 13.8 10.0-14.5 % Platelet Count 169 130-400 10^3/uL Mean Platelet Volume 13.7 H 9.0-12.2 fL Immature Granulocyte % (Auto) 0 % Neutrophils (%) (Auto) 66 42-75 % Lymphocytes (%) (Auto) 24 12-44 % Monocytes (%) (Auto) 7 0-12 % Eosinophils (%) (Auto) 2 0-10 % Basophils (%) (Auto) 1 0-10 % Neutrophils # (Auto) 3.8 1.8-7.8 10^3/uL Lymphocytes # (Auto) 1.4 1.0-4.0 10^3/uL Monocytes # (Auto) 0.4 0.0-1.0 10^3/uL Eosinophils # (Auto) 0.1 0.0-0.3 10^3/uL Basophils # (Auto) 0.1 0.0-0.1 10^3/uL Immature Granulocyte # (Auto) 0.0 0.0-0.1 10^3/uL Percent Immature Platelet Fraction 17.1 H 0.0-7.6 % Sodium Level 140 135-145 MMOL/L Potassium Level 3.8 3.6-5.0 MMOL/L Chloride Level 104 98-107 MMOL/L Carbon Dioxide Level 27 21-32 MMOL/L Anion Gap 9 5-14 MMOL/L Blood Urea Nitrogen 11 7-18 MG/DL Creatinine 0.87 0.60-1.30 MG/DL Estimat Glomerular Filtration Rate 119 BUN/Creatinine Ratio 13 Glucose Level 99 70-105 MG/DL Calcium Level 9.0 8.5-10.1 MG/DL Corrected Calcium 9.1 8.5-10.1 MG/DL Total Bilirubin 1.0 0.1-1.0 MG/DL Aspartate Amino Transf (AST/SGOT) 20 5-34 U/L Alanine Aminotransferase (ALT/SGPT) 35 0-55 U/L Alkaline Phosphatase 57 40-136 U/L Troponin I < 0.028 <0.028 NG/ML Total Protein 6.9 6.4-8.2 GM/DL Albumin 3.9 3.2-4.5 GM/DL My Orders Orders - EMMETT RANGEL Ekg Tracing (09/03/21 09:46) Ketorolac Injection (Toradol Injection) (09/03/21 10:15) Cbc With Automated Diff (09/03/21 10:12) Comprehensive Metabolic Panel (09/03/21 10:12) Troponin I [place] (09/03/21 10:12) Chest 1 View, Ap/Pa Only (09/03/21 10:12) Medications Given in ED Current Medications Medications Dose Ordered Sig/Vahid Route Start Time Stop Time Status Last Admin Dose Admin Ketorolac Tromethamine 30 mg ONCE ONCE IVP 09/03/21 10:15 09/03/21 10:16 DC 09/03/21 10:25 30 MG Vital Signs/I&O 09/03/21 09:43 Temp 36.3 Pulse 70 Resp 16 B/P (MAP) 187/100 (129) Pulse Ox 95 O2 Delivery Room Air Blood Pressure Mean: 129 Progress Progress Note : Time: 10:26 Progress Note The patient's pain may be related to chest wall and amplified by his anxiety. He agrees with this and would not try some Toradol. We have suggested maybe a muscle relaxant would be helpful and highly encouraged that he go to counseling. He thinks that this is a good idea. We will obtain some labs, chest x-ray to go with his normal EKG to rule out anything dangerous today. Initial ECG Impression Date: Sep 03, 2021 Initial ECG Impression Time: 09:56 Initial ECG Rate: 79 Initial ECG Rhythm: Normal Sinus Initial ECG Intervals: Normal Initial ECG Impression: Normal Comment Normal sinus rhythm without clinically relevant ST elevation or depression Diagnostic Imaging Diagonstic Imaging: Xray Plain Films/CT/US/NM/MRI: chest Comments [facility]. [place], [place] NAME: [facility] REC#: [id number] PT STATUS: REG ER : 1990 PHYSICIAN: EMMETT RANGEL MD ADMIT DATE: 09/03/21/ER Draft Date of Exam:09/03/21 CHEST 1 VIEW, AP/PA ONLY INDICATION: Chest pain. TECHNIQUE/COMPARISON: A frontal chest was obtained at 10:41 AM and compared to 08/26/2021. FINDINGS: The heart and mediastinal silhouette are normal in appearance. The lungs are clear. There is no pneumothorax or pleural fluid. IMPRESSION: Negative chest. Dictated on workstation # [id number] Dict: 09/03/21 1040 Trans: 09/03/21 1042 [id number] Interpreted by: MICHELLE MCMAHON MD Electronically signed by: Reviewed: Reviewed by Me Departure Impression Primary Impression: Chest wall pain Additional Impression: Anxiety about health Disposition: 01 HOME, SELF-CARE Condition: Stable Departure-Patient Inst. Decision time for Depature: 12:38 Referrals: [facility] (PCP/Family) Primary Care Physician Patient Instructions: Chest Pain That Is Not Caused by the Heart (DC) Add. Discharge Instructions: While we did not find any new evidence of dangerous reasons for your chest pain today clearly your anxiety about your chest pain needs to be addressed. I highly recommend you follow-up with [facility] or [facility] to look into counseling and possibly even some medications that can help. We will try some muscle relaxants to see if spasms of the muscle in your chest wall is what is part of the reason you are having this chest pain/discomfort. Cyclobenzaprine 1 tablet every 8 hours as needed for muscle spasms. Will cause drowsiness. Make a follow-up appointment with your primary care doctor to also help manage your symptoms. All discharge instructions reviewed with patient and/or family. Voiced understanding. Scripts Cyclobenzaprine HCl (Cyclobenzaprine HCl) 10 Mg Tablet 10 MG PO Q8H PRN for SPASMS, #15 TAB 0 Refills Prov: EMMETT RANGEL 09/03/21 Work/School Note: Work Release Form Date Seen in the Emergency Department: Sep 03, 2021 Return to Work: Sep 04, 2021 Restrictions: No Restrictions EMMETT RANGEL Sep 03, 2021 10:23
[2021-09-03 10:25] LABS: GLUCOSE 99 MG/DL (70-105); TOTAL PROTEIN 6.9 GM/DL (6.4-8.2)
[2021-09-03 10:26] LABS: CARBON DIOXIDE 27 MMOL/L (21-32)
[2021-09-03 10:29] LABS: ALKALINE PHOSPHATASE 57 U/L (40-136); CREATININE SERUM 0.87 MG/DL (0.60-1.30); GFR ESTIMATED 119
[2021-09-03 10:30] LABS: BUN/CREATININE RATIO 13
[2021-09-03 10:32] LABS: ALANINE AMINOTRANSFERASE 35 U/L (0-55)
--- NOTE | 2021-09-03 10:42 | Diagnostic Imaging Report ---
INDICATION: Chest pain. TECHNIQUE/COMPARISON: A frontal chest was obtained at 10:41 AM and compared to 08/26/2021. FINDINGS: The heart and mediastinal silhouette are normal in appearance. The lungs are clear. There is no pneumothorax or pleural fluid. IMPRESSION: Negative chest. Dictated by: Dictated on workstation # [id number]
[2021-09-03] MEDS ORDERED: CYCL10TA25 PO (12:39)
== END 2021-09-03 13:00 | disposition home or self-care (01) ==
LOC: EDUNIT# 09:43 → ER 09:44
DX: R07.89 Other chest pain (principal); F41.0 Panic disorder [episodic paroxysmal anxiety]; E66.01 Morbid (severe) obesity due to excess calories; Z68.43 Body mass index [BMI] 50.0-59.9, adult; Z79.899 Other long term (current) drug therapy
CPT/HCPCS: 36415; 71045; 80053; 84484; 85025; 93005; 93041

== ENCOUNTER 2021-10-05 23:05 | Emergency (ER) | payer SELFPAY ==
[~2021-10-05 23:05] MED LIST changes: +CYCL10TA25 PO
--- NOTE | 2021-10-06 00:09 | ED Chest Pain ---
General Chief Complaint: Chest Pain Stated Complaint: CHEST PAIN Source: patient Exam Limitations: no limitations History of Present Illness Date Seen by Provider: Oct 05, 2021 Time Seen by Provider: 23:55 Initial Comments Patient is a morbidly obese 30-year-old male who presents to the emergency department today with a chief complaint of a prickling sensation, sharp discomfort in his left chest and some pain in his left arm onset yesterday. Patient walked home in 100 degree weather a mile and a half after work yesterday. After he got home and sat down to play video games he had a sudden onset of this discomfort. No nausea or shortness of breath. No recent fevers or chills. He has chronic intermittent diarrhea. He works at [employer]. He has had previous heart cath by Dr. Fulton a couple of years ago that showed nonobstructive coronary artery disease. He is a non-smoker. He has a family history of coronary artery disease in his father in his 50s. He states the pain has been constant since yesterday but got worse this evening as he was laying in bed. He felt like there was a "cactus in my chest". He has taken Aleve and other cdnv-rws-fxjmgew generic "pain relievers" without any relief of symptoms. Not a diabetic. History of COVID x2. All other review of systems reviewed and negative except as stated. Timing/Duration: 1-2 days Severity/Quality: sharp, other ("prickling") Location: other (left chest) Radiation: arms (left) Activities at Onset: none (playing video games) Prior CP/Workup: cardiac cath ASA po FINANCE LEAD: No NTG SL FINANCE LEAD: No Associated Symptoms: denies symptoms Allergies and Home Medications Allergies Coded Allergies: No Known Drug Allergies (Unverified , 09/21/19) Patient Home Medication List Home Medication List Reviewed: Yes Atorvastatin Calcium (Lipitor) 10 Mg Tablet, 10 MG PO DAILY Prescribed by: SARAY FULTON on 09/22/19 0821 Cyclobenzaprine HCl (Cyclobenzaprine HCl) 10 Mg Tablet, 10 MG PO Q8H PRN for SPASMS Prescribed by: EMMETT RANGEL on 09/03/21 1239 Ondansetron (Ondansetron Odt) 8 Mg Tab.rapdis, 8 MG PO Q8H PRN for nausea Prescribed by: REGINALDO MONZON on 03/27/21 1226 Pantoprazole Sodium (Protonix) 40 Mg Tablet.dr, 40 MG PO DAILY Prescribed by: JOE DAVE on 05/30/21 1813 Sertraline HCl (Sertraline HCl) 25 Mg Tablet, 25 MG PO DAILY Prescribed by: GUIDO GIRALDO on 09/06/20 1447 Review of Systems Review of Systems Constitutional: see HPI EENTM: No Symptoms Reported Respiratory: No Symptoms Reported Cardiovascular: Chest Pain Gastrointestinal: No Symptoms Reported Genitourinary: No Symptoms Reported Musculoskeletal: no symptoms reported Skin: no symptoms reported Psychiatric/Neurological: No Symptoms Reported All Other Systems Reviewed Negative Unless Noted: Yes Past Hwsdzpb-Mszjej-Wmeacp Hx Patient Social History Tobacco Use?: No Substance use?: No Alcohol Use?: No Immunizations Up To Date Tetanus Booster (TDap): Unknown First/Initial COVID19 Vaccinat: UNKNOWN Second COVID19 Vaccination Jim: UNKNOWN Third COVID19 Vaccination Date: UNKNOWN Seasonal Allergies Seasonal Allergies: No Past Medical History Surgeries: No Respiratory: No Pneumonia Currently Using CPAP: No Currently Using BIPAP: No Cardiac: Yes Hypertension Neurological: Yes Headaches /Migraines Reproductive Disorders: No Genitourinary: No Kidney Stones Gastrointestinal: Yes Chronic Diarrhea, Irritable Bowel Musculoskeletal: No Endocrine: No (MORBID OBESITY--> 400 LBS. ) HEENT: Yes (POOR DENTITION) Cancer: No Psychosocial: No Anxiety Integumentary: No Blood Disorders: No Adverse Reaction/Blood Tranf: No Physical Exam Vital Signs Vital Signs - First Documented 10/05/21 23:43 Temp 36.1 Pulse 69 Resp 18 B/P (MAP) 146/105 (119) Pulse Ox 97 O2 Delivery Room Air Capillary Refill : Height, Weight, BMI Height: 5'11.00" Weight: 450lbs. oz. 204.009975if; 57.00 BMI Method:Stated General Appearance: No Apparent Distress, WD/WN HEENT: PERRL/EOMI Neck: Full Range of Motion, Normal Inspection Respiratory: Lungs Clear, Normal Breath Sounds, No Accessory Muscle Use, No Respiratory Distress Cardiovascular: Regular Rate, Rhythm (distant heart sounds (secondary to obesity)) Gastrointestinal: Normal Bowel Sounds, Non Tender, Soft Extremity: Normal Inspection, Normal Range of Motion, Non Tender, No Calf Tenderness Neurologic/Psychiatric: Alert, Oriented x3, No Motor/Sensory Deficits, 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, brake reliner II-XII Norm as Tested Skin: Normal Color, Warm/Dry Progress/Results/Core Measures Results/Orders Lab Results Laboratory Tests Test 10/06/21 00:00 Range/Units White Blood Count 6.9 4.3-11.0 10^3/uL Red Blood Count 5.21 4.30-5.52 10^6/uL Hemoglobin 14.2 13.3-17.7 g/dL Hematocrit 44 40-54 % Mean Corpuscular Volume 85 80-99 fL Mean Corpuscular Hemoglobin 27 25-34 pg Mean Corpuscular Hemoglobin Concent 32 32-36 g/dL Red Cell Distribution Width 13.6 10.0-14.5 % Platelet Count 209 130-400 10^3/uL Mean Platelet Volume 13.1 H 9.0-12.2 fL Immature Granulocyte % (Auto) 0 % Neutrophils (%) (Auto) 63 42-75 % Lymphocytes (%) (Auto) 26 12-44 % Monocytes (%) (Auto) 7 0-12 % Eosinophils (%) (Auto) 3 0-10 % Basophils (%) (Auto) 1 0-10 % Neutrophils # (Auto) 4.4 1.8-7.8 10^3/uL Lymphocytes # (Auto) 1.8 1.0-4.0 10^3/uL Monocytes # (Auto) 0.5 0.0-1.0 10^3/uL Eosinophils # (Auto) 0.2 0.0-0.3 10^3/uL Basophils # (Auto) 0.1 0.0-0.1 10^3/uL Immature Granulocyte # (Auto) 0.0 0.0-0.1 10^3/uL Percent Immature Platelet Fraction 15.1 H 0.0-7.6 % Prothrombin Time 13.2 12.2-14.7 SEC INR Comment 1.0 0.8-1.4 Activated Partial Thromboplast Time 28 24-35 SEC Sodium Level 143 135-145 MMOL/L Potassium Level 3.9 3.6-5.0 MMOL/L Chloride Level 106 98-107 MMOL/L Carbon Dioxide Level 25 21-32 MMOL/L Anion Gap 12 5-14 MMOL/L Blood Urea Nitrogen 13 7-18 MG/DL Creatinine 1.04 0.60-1.30 MG/DL Estimat Glomerular Filtration Rate 99 BUN/Creatinine Ratio 13 Glucose Level 100 70-105 MG/DL Calcium Level 9.6 8.5-10.1 MG/DL Corrected Calcium 9.4 8.5-10.1 MG/DL Magnesium Level 2.2 1.6-2.4 MG/DL Total Bilirubin 0.7 0.1-1.0 MG/DL Aspartate Amino Transf (AST/SGOT) 24 5-34 U/L Alanine Aminotransferase (ALT/SGPT) 37 0-55 U/L Alkaline Phosphatase 61 40-136 U/L Total Creatine Kinase 173 30-200 U/L Troponin I < 0.028 <0.028 NG/ML Total Protein 7.3 6.4-8.2 GM/DL Albumin 4.2 3.2-4.5 GM/DL My Orders Orders - REGINALDO MONZON MD Ekg Tracing (10/05/21 23:48) Cbc With Automated Diff (10/06/21 00:05) Magnesium (10/06/21 00:05) Chest 1 View, Ap/Pa Only (10/06/21 00:05) Ekg Tracing (10/06/21 00:05) Comprehensive Metabolic Panel (10/06/21 00:05) Protime With Inr (10/06/21 00:05) Partial Thromboplastin Time (10/06/21 00:05) O2 (10/06/21 00:05) Monitor-Rhythm Ecg Trace Only (10/06/21 00:05) Ed Iv/Invasive Line Start (10/06/21 00:05) Creatine Kinase (10/06/21 00:05) Troponin I [place] (10/06/21 00:05) Ketorolac Injection (Toradol Injection) (10/06/21 00:15) Medications Given in ED Current Medications Medications Dose Ordered Sig/Vahid Route Start Time Stop Time Status Last Admin Dose Admin Ketorolac Tromethamine 15 mg ONCE ONCE IVP 10/06/21 00:15 10/06/21 00:16 DC 10/06/21 00:14 15 MG Vital Signs/I&O 10/05/21 10/06/21 23:43 01:34 Temp 36.1 36.1 Pulse 69 71 Resp 18 16 B/P (MAP) 146/105 (119) 128/89 Pulse Ox 97 97 O2 Delivery Room Air Room Air Progress Progress Note : Time: 01:15 Progress Note Patient seen and evaluated, 30-year-old morbidly obese gentleman with atypical chest pain. Evaluation today includes a physical exam, CBC, chemistry, cardiac enzyme profile, coagulation profile EKG and chest x-ray. All of this work-up has been reviewed, everything is within normal limits. His vital signs have been stable, he is not tachycardic or hypoxic. He was treated with some Toradol and states that it really did not make much of a difference to the discomfort in his left chest. I did advise him that no concerning findings were identified that would lead to the need for admission. I recommended that he follow-up with [facility]. He states that he cannot do that until he pays them for previous visits. I did recommend that he try and get that accomplished so that he could get further evaluation. Return precautions were provided. He verbalized understanding. All questions are sought and answered. Initial ECG Impression Date: Oct 06, 2021 Initial ECG Impression Time: 23:55 Initial ECG Rate: 69 Initial ECG Rhythm: Normal Sinus Initial ECG Intervals: Normal Initial ECG Impression: Normal Diagnostic Imaging Diagonstic Imaging: Xray Plain Films/CT/US/NM/MRI: chest Comments Chest x-rayinterpreted by menormal mediastinal structures, no infiltrates or effusions. Normal bony thorax. No significant cardiomegaly Departure Impression Primary Impression: Atypical chest pain Disposition: 01 HOME, SELF-CARE Condition: Stable Departure-Patient Inst. Decision time for Depature: 01:17 Referrals: [facility] (PCP/Family) Primary Care Physician Patient Instructions: Chest Pain That Is Not Caused by the Heart (DC) Add. Discharge Instructions: Continue to take your daily medications as prescribed. Please follow-up with [facility] as soon as possible for further evaluation and management of your chest discomfort. If you develop worsening chest pain that causes nausea, vomiting, shortness of breath, sweating or if it is associated with fever and productive cough please come back to the emergency room for reevaluation. Stay active and try to follow a good nutrition plan to help lose weight. Copy Copies To 1: CRISTO BRENNAN KATHRYN M MD Oct 06, 2021 00:09
[2021-10-06 00:11] LABS: EOSINOPHILS # (AUTO) 0.2 10^3/uL (0.0-0.3); EOSINOPHILS % (AUTO) 3 % (0-10); HEMOGLOBIN 14.2 g/dL (13.3-17.7)
[2021-10-06 00:12] LABS: BASOPHILS # (AUTO) 0.1 10^3/uL (0.0-0.1); BASOPHILS % (AUTO) 1 % (0-10); HEMATOCRIT 44 % (40-54); LYMPHOCYTES # (AUTO) 1.8 10^3/uL (1.0-4.0); LYMPHOCYTES % (AUTO) 26 % (12-44); MEAN CORPUSCULAR HEMOGLOBIN 27 pg (25-34); MEAN CORPUSCULAR HGB CONC 32 g/dL (32-36); MEAN CORPUSCULAR VOLUME 85 fL (80-99); MEAN PLATELET VOLUME 13.1 fL (9.0-12.2); MONOCYTES # (AUTO) 0.5 10^3/uL (0.0-1.0); MONOCYTES % (AUTO) 7 % (0-12); NEUTROPHILS # (AUTO) 4.4 10^3/uL (1.8-7.8); NEUTROPHILS % (AUTO) 63 % (42-75); PLATELET COUNT 209 10^3/uL (130-400); WHITE BLOOD COUNT 6.9 10^3/uL (4.3-11.0)
[2021-10-06] MEDS ORDERED: KETOROLAC 30 MG/ML VIAL IVP ONE (00:15)
[2021-10-06 00:25] LABS: ALBUMIN 4.2 GM/DL (3.2-4.5); POTASSIUM 3.9 MMOL/L (3.6-5.0); PROTHROMBIN TIME PATIENT 13.2 SEC (12.2-14.7)
[2021-10-06 00:26] LABS: CALCIUM 9.6 MG/DL (8.5-10.1)
[2021-10-06 00:27] LABS: TOTAL PROTEIN 7.3 GM/DL (6.4-8.2)
[2021-10-06 00:29] LABS: BILIRUBIN,TOTAL 0.7 MG/DL (0.1-1.0)
[2021-10-06 00:31] LABS: CREATININE SERUM 1.04 MG/DL (0.60-1.30)
[2021-10-06 00:34] LABS: MAGNESIUM 2.2 MG/DL (1.6-2.4)
[2021-10-06 01:34] VITALS: BP 128/89
--- NOTE | 2021-10-06 07:14 | Diagnostic Imaging Report ---
PATIENT HISTORY: Chest pain. TECHNIQUE: Single frontal view of the chest. COMPARISON: 09/03/2021 FINDINGS: The lung volumes are normal. No focal consolidation is seen. No large pleural effusion or pneumothorax is seen. The cardiomediastinal silhouette is normal in size and contour. No acute osseous abnormality is seen. IMPRESSION: No acute pulmonary abnormality seen. Dictated by: Dictated on workstation # [id number]
== END 2021-10-06 01:38 | disposition home or self-care (01) ==
LOC: EDUNIT# 23:05 → ER 23:06
DX: R07.89 Other chest pain (principal); E66.01 Morbid (severe) obesity due to excess calories; Z68.43 Body mass index [BMI] 50.0-59.9, adult; Z86.16 Personal history of COVID-19
CPT/HCPCS: 36415; 71045; 80053; 82550; 83735; 84484; 85025; 85610; 85730; 93005; 93041

== ENCOUNTER 2021-10-22 23:06 | Emergency (ER) | payer SELFPAY ==
[~2021-10-22] VITALS: Ht 180.3 cm; Wt 189.4 kg
[2021-10-22] MEDS ORDERED: ASPIRIN 81 MG CHEW (CHILDREN'S ASA) PO ONE (23:30)
--- NOTE | 2021-10-22 23:37 | ED Chest Pain ---
General Chief Complaint: Chest Pain Stated Complaint: STS LIFTED SOMETHING AT WORK & HAVING CP SINCE Nursing Triage Note: PT ARRIVAL TO ER WITH COMPLAINT OF INTERMITTENT CHEST WALL PAIN, AND NAUSEA SINCE 10AM THIS MORNING. PT STATES THAT HE LIFTED 10-15 GALLONS OF FRYER OIL AND THE PAIN BEGAN. 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 PT STATES THAT THE PAIN COMES AND GOES. Source: patient Exam Limitations: no limitations History of Present Illness Date Seen by Provider: Oct 22, 2021 Time Seen by Provider: 23:09 Initial Comments Patient to the ER by private conveyance from home with chief complaint that he has been having some chest pain all day since this morning about 7 AM he lifted it out of oil at work. The pain is not reproducible to direct palpation but is made worse with certain movements. He does not have a history of heart disease. He has had a heart catheterization by Dr. 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 He is not having a fever chills cough shortness of air history of lung disease or smoking. He does have hypertension on metoprolol, hyperlipidemia but no diabetes. He has had some nausea but no vomiting. This pain was a 7 out of 10 at its worst. It made him feel breathless. It has gotten better is now 3 out of 10 he just wants to get it checked out before he has to go to work tomorrow. He took some Tylenol and naproxen tonight for his discomfort and it has helped. Cardiac catheterization [place] [address] Fulton. Patient does have a history of father who at a young age after bypass surgery. He had an abnormal stress test and was given a heart catheterization with an EF of 50% and then tortuous looking circumflex artery but no obstructive disease. Normal aortic root. Allergies and Home Medications Allergies Coded Allergies: No Known Drug Allergies (Unverified , 09/21/19) Patient Home Medication List Home Medication List Reviewed: Yes Atorvastatin Calcium (Lipitor) 10 Mg Tablet, 10 MG PO DAILY Prescribed by: SARAY FULTON on 09/22/19 0821 Cyclobenzaprine HCl (Cyclobenzaprine HCl) 10 Mg Tablet, 10 MG PO Q8H PRN for SPASMS Prescribed by: EMMETT RANGEL on 09/03/21 1239 Ondansetron (Ondansetron Odt) 8 Mg Tab.rapdis, 8 MG PO Q8H PRN for nausea Prescribed by: REGINALDO MONZON on 03/27/21 1226 Pantoprazole Sodium (Protonix) 40 Mg Tablet.dr, 40 MG PO DAILY Prescribed by: JOE DAVE on 05/30/21 1813 Sertraline HCl (Sertraline HCl) 25 Mg Tablet, 25 MG PO DAILY Prescribed by: GUIDO GIRALDO on 09/06/20 1447 Review of Systems Review of Systems Constitutional: No chills, No diaphoresis EENTM: No Blurred Vision, No Double Vision Respiratory: Denies Cough, Denies Shortness of Air Cardiovascular: Chest Pain; Denies Edema, Denies Irregular Heart Rate Gastrointestinal: Denies Abdominal Pain, Denies Constipated, Denies Diarrhea; Nausea; Denies Poor Fluid Intake, Denies Vomiting Genitourinary: Denies Burning, Denies Discharge Musculoskeletal: see HPI; No back pain, No joint pain All Other Systems Reviewed Negative Unless Noted: Yes Past Kuifgwl-Sbnnjv-Pgokgq Hx Patient Social History Tobacco Use?: No Use of E-Cig and/or Vaping dev: No Substance use?: No Alcohol Use?: No Pt feels they are or have been: No Immunizations Up To Date Tetanus Booster (TDap): Unknown Influenza Vaccine Up-to-Date: Yes; Up-to-Date First/Initial COVID19 Vaccinat: UNKNOWN Second COVID19 Vaccination Jim: UNKNOWN Third COVID19 Vaccination Date: UNKNOWN 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 ) HEENT: Yes (POOR DENTITION) Cancer: No Psychosocial: No Anxiety Integumentary: No Blood Disorders: No Adverse Reaction/Blood Tranf: No Physical Exam Vital Signs Vital Signs - First Documented 10/22/21 23:14 Temp 36.6 Pulse 87 Resp 20 B/P (MAP) 152/93 (112) Pulse Ox 96 O2 Delivery Room Air Capillary Refill : Less Than 3 Seconds Height, Weight, BMI Height: 5'11.00" Weight: 450lbs. oz. 204.668303ss; 58.00 BMI Method:Stated General Appearance: No Apparent Distress, Obese (Super morbid obesity) HEENT: PERRL/EOMI, Pharynx Normal, Moist Mucous Membranes Neck: Full Range of Motion, Normal Inspection Respiratory: Chest Non Tender, Lungs Clear, Normal Breath Sounds, No Accessory Muscle Use, No Respiratory Distress Cardiovascular: Regular Rate, Rhythm, No Edema, Normal Peripheral Pulses Gastrointestinal: Normal Bowel Sounds, Non Tender, Soft Extremity: Normal Capillary Refill, Normal Inspection, No Pedal Edema Neurologic/Psychiatric: Alert, Oriented x3 Skin: Normal Color, Warm/Dry Progress/Results/Core Measures Results/Orders Lab Results Laboratory Tests Test 10/22/21 23:43 Range/Units White Blood Count 8.0 4.3-11.0 10^3/uL Red Blood Count 5.43 4.30-5.52 10^6/uL Hemoglobin 14.6 13.3-17.7 g/dL Hematocrit 46 40-54 % Mean Corpuscular Volume 85 80-99 fL Mean Corpuscular Hemoglobin 27 25-34 pg Mean Corpuscular Hemoglobin Concent 32 32-36 g/dL Red Cell Distribution Width 13.9 10.0-14.5 % Platelet Count 197 130-400 10^3/uL Mean Platelet Volume 13.1 H 9.0-12.2 fL Immature Granulocyte % (Auto) 0 % Neutrophils (%) (Auto) 73 42-75 % Lymphocytes (%) (Auto) 19 12-44 % Monocytes (%) (Auto) 6 0-12 % Eosinophils (%) (Auto) 2 0-10 % Basophils (%) (Auto) 0 0-10 % Neutrophils # (Auto) 5.8 1.8-7.8 10^3/uL Lymphocytes # (Auto) 1.5 1.0-4.0 10^3/uL Monocytes # (Auto) 0.5 0.0-1.0 10^3/uL Eosinophils # (Auto) 0.1 0.0-0.3 10^3/uL Basophils # (Auto) 0.0 0.0-0.1 10^3/uL Immature Granulocyte # (Auto) 0.0 0.0-0.1 10^3/uL Prothrombin Time 13.5 12.2-14.7 SEC INR Comment 1.0 0.8-1.4 Activated Partial Thromboplast Time 27 24-35 SEC Sodium Level 141 135-145 MMOL/L Potassium Level 3.6 3.6-5.0 MMOL/L Chloride Level 106 98-107 MMOL/L Carbon Dioxide Level 23 21-32 MMOL/L Anion Gap 12 5-14 MMOL/L Blood Urea Nitrogen 14 7-18 MG/DL Creatinine 1.20 0.60-1.30 MG/DL Estimat Glomerular Filtration Rate 83 BUN/Creatinine Ratio 12 Glucose Level 115 H 70-105 MG/DL Calcium Level 9.4 8.5-10.1 MG/DL Corrected Calcium 9.2 8.5-10.1 MG/DL Magnesium Level 2.3 1.6-2.4 MG/DL Total Bilirubin 0.7 0.1-1.0 MG/DL Aspartate Amino Transf (AST/SGOT) 18 5-34 U/L Alanine Aminotransferase (ALT/SGPT) 33 0-55 U/L Alkaline Phosphatase 54 40-136 U/L Myoglobin 100.1 H 10.0-92.0 NG/ML Troponin I < 0.028 <0.028 NG/ML Total Protein 7.3 6.4-8.2 GM/DL Albumin 4.2 3.2-4.5 GM/DL My Orders Orders - JUAN CARLOS,EMMETT J Ekg Tracing (10/22/21 23:09) Continuous Ekg Monitoring (10/22/21 23:09) Ekg Tracing (10/22/21 23:23) Cbc With Automated Diff (10/22/21 23:30) Magnesium (10/22/21 23:30) Comprehensive Metabolic Panel (10/22/21 23:30) Myoglobin Serum (10/22/21 23:30) Protime With Inr (10/22/21 23:30) Partial Thromboplastin Time (10/22/21 23:30) O2 (10/22/21 23:30) Ed Iv/Invasive Line Start (10/22/21 23:30) Troponin I Vick (10/22/21 23:30) Aspirin Chewable Tablet (Baby Aspirin Ch (10/22/21 23:30) Chest 1 View, Ap/Pa Only (10/22/21 ) Medications Given in ED Current Medications Medications Dose Ordered Sig/Vahid Route Start Time Stop Time Status Last Admin Dose Admin Aspirin 324 mg ONCE ONCE PO 7/26/22 23:30 10/22/21 23:32 DC 10/22/21 23:39 324 MG Vital Signs/I&O 10/22/21 23:14 Temp 36.6 Pulse 87 Resp 20 B/P (MAP) 152/93 (112) Pulse Ox 96 O2 Delivery Room Air Blood Pressure Mean: 112 Progress Progress Note : Time: 23:35 Progress Note Suspect chest wall/musculoskeletal involved chest pain. We will start with some aspirin get a cardiac enzyme back which is now 16 hours after start of pain. If the troponin is negative then we will give him a shot of Toradol and return precautions as well as a reduced lifting work note. Initial ECG Impression Date: Oct 22, 2021 Initial ECG Impression Time: 23:26 Initial ECG Rate: 83 Initial ECG Rhythm: Normal Sinus Initial ECG Intervals: Normal Initial ECG Impression: Normal Initial ECG Comparisson: No Previous ECG Available Comment Normal sinus rhythm without clinically relevant ST elevation or depression Diagnostic Imaging Diagonstic Imaging: Xray Plain Films/CT/US/NM/MRI: chest Comments No acute cardiopulmonary process on 1 view chest x-ray. Unchanged from previous chest x-ray. Reviewed: Reviewed by Me Departure Impression Primary Impression: Chest wall pain Disposition: 01 HOME, SELF-CARE Condition: Stable Departure-Patient Inst. Decision time for Depature: 00:20 Referrals: [facility] (PCP/Family) Primary Care Physician Patient Instructions: Chest Pain That Is Not Caused by the Heart (DC), Costochondritis Add. Discharge Instructions: Naproxen 1 or 2 tablets twice a day, Tylenol 1000 mg every 8 hours, topical creams such as icy hot or Biofreeze. All discharge instructions reviewed with patient and/or family. Voiced understanding. Work/School Note: Work Release Form Date Seen in the Emergency Department: Oct 23, 2021 Return to Work: Oct 24, 2021 Restrictions: Need Release from Doctor Other Restrictions Listed Below: No lifting greater than 20 pounds until 10/30/2021 EMMETT RANGEL Oct 22, 2021 23:37
[2021-10-22 23:49] LABS: BASOPHILS % (AUTO) 0 % (0-10); EOSINOPHILS # (AUTO) 0.1 10^3/uL (0.0-0.3); EOSINOPHILS % (AUTO) 2 % (0-10); HEMATOCRIT 46 % (40-54); HEMOGLOBIN 14.6 g/dL (13.3-17.7); LYMPHOCYTES # (AUTO) 1.5 10^3/uL (1.0-4.0); LYMPHOCYTES % (AUTO) 19 % (12-44); MEAN CORPUSCULAR HEMOGLOBIN 27 pg (25-34); MEAN CORPUSCULAR HGB CONC 32 g/dL (32-36); MEAN CORPUSCULAR VOLUME 85 fL (80-99); MEAN PLATELET VOLUME 13.1 fL (9.0-12.2); MONOCYTES # (AUTO) 0.5 10^3/uL (0.0-1.0); MONOCYTES % (AUTO) 6 % (0-12); NEUTROPHILS # (AUTO) 5.8 10^3/uL (1.8-7.8); NEUTROPHILS % (AUTO) 73 % (42-75); PLATELET COUNT 197 10^3/uL (130-400)
[2021-10-22 23:59] LABS: ALBUMIN 4.2 GM/DL (3.2-4.5); POTASSIUM 3.6 MMOL/L (3.6-5.0)
[2021-10-23 00:01] LABS: CALCIUM 9.4 MG/DL (8.5-10.1)
[2021-10-23 00:02] LABS: PROTHROMBIN TIME PATIENT 13.5 SEC (12.2-14.7); TOTAL PROTEIN 7.3 GM/DL (6.4-8.2)
[2021-10-23 00:04] LABS: BILIRUBIN,TOTAL 0.7 MG/DL (0.1-1.0)
[2021-10-23 00:05] LABS: CREATININE SERUM 1.2 MG/DL (0.60-1.30)
[2021-10-23 00:08] LABS: MAGNESIUM 2.3 MG/DL (1.6-2.4)
[2021-10-23 00:33] VITALS: BP 144/93
[2021-10-23] MEDS ORDERED: KETOROLAC 30 MG/ML VIAL IVP ONE (00:45)
--- NOTE | 2021-10-23 07:02 | Diagnostic Imaging Report ---
EXAMINATION: Chest radiograph, portable AP view. DATE: 10/23/2021 12:11 AM INDICATION: 30-year-old male, chest pain. COMPARISON: October 06, 2021. FINDINGS: Heart size and mediastinal contours are unchanged. There is no identified pneumothorax. There is no large pleural effusion. There is no identified focal airspace consolidation. There are technical limitations of the study relating to patient body habitus and difficulties with exposure. IMPRESSION: 1. No identified acute cardiopulmonary abnormality. Dictated by: Dictated on workstation # [id number]
== END 2021-10-23 00:46 | disposition home or self-care (01) ==
LOC: EDUNIT# 23:06 → ER 23:10
DX: R07.89 Other chest pain (principal); I10 Essential (primary) hypertension; E78.5 Hyperlipidemia, unspecified; E66.01 Morbid (severe) obesity due to excess calories; Z68.43 Body mass index [BMI] 50.0-59.9, adult; Z95.9 Presence of cardiac and vascular implant and graft, unspecified; Z79.899 Other long term (current) drug therapy; Z82.49 Family history of ischemic heart disease and other diseases of the circulatory system; X50.1XXA Overexertion from prolonged static or awkward postures, initial encounter; Y92.59 Other trade areas as the place of occurrence of the external cause; Y99.0 Civilian activity done for income or pay
CPT/HCPCS: 36415; 71045; 80053; 83735; 83874; 84484; 85025; 85610; 85730; 93005

== ENCOUNTER 2021-12-13 17:34 | Emergency (ER) | payer SELFPAY ==
[~2021-12-13] VITALS: Ht 180 cm; Wt 192.0 kg
[2021-12-13] MEDS ORDERED: ASPIRIN 81 MG CHEW (CHILDREN'S ASA) PO ONE (18:00)
--- NOTE | 2021-12-13 18:04 | ED Chest Pain ---
General Chief Complaint: Chest Pain Stated Complaint: CHEST DISCOMFORT,BACK PAIN Nursing Triage Note: PT AMBULATORY TO ER, C/O INTERMITTENT L SIDED CHEST PAIN ONSET SEVERAL WEEKS AGO, DURATION GOES FROM HOURS TO DAYS, DESCRIBES A STABBING TYPE PAIN. PT REPORTS HAS HAD A HEART CATH IN THE PAST. PT ALSO C/O L FLANK PAIN ONSET THIS AFTERNOON. EKG OBTAINED, ATTACHED TO MONITOR, IV STARTED AND LABS SENT. Source: patient History of Present Illness Date Seen by Provider: Dec 13, 2021 Time Seen by Provider: 17:50 Initial Comments PT ARRIVES VIA POV STATES "I HAVE KIDNEY PAIN AND CHEST PAIN" STATES HE HAD LEFT SIDED CHEST PAIN, WHEN HE WOKE UP LAST NIGHT AROUND 2100 PAIN COMES AND GOES NO RADIATION OF PAIN NOTHING WORSENS OR IMPROVES PAIN--TAKES 2-4 ALEVE EVERY DAY FOR CHRONIC ACHES/PAINS MILD SHORTNESS OF BREATH + NAUSEA, NO VOMITING. NO DIARRHEA. HAS CONSTIPATION--BM THIS AFTERNOON AROUND 1400 NO PALPITATIONS NO DIZZINESS OR SYNCOPE NO SWEATS NO SWELLING IN LEGS/FEET OR PAIN IN CALVES + COUGH NO FEVER NO URI SYMPTOMS PT HAS CHRONIC CHEST PAIN COMPLAINTS AND HAS BEEN HERE A MULTITUDE OF TIMES FOR IT, AND HAS HAD EXTENSIVE WORK UP'S, INCLUDING A CARDIAC CATH 09/22/19 WHICH HAVE ALL BEEN ESSENTIALLY NORMAL FOR CORONARY ARTERY DISEASE. PT STATES HE HAS BEEN HAVING THIS CHEST PAIN OFF AND ON FOR THE LAST 3 WEEKS--LASTS HOURS TO DAYS AT A TIME. 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 STATES THIS PAIN IS SHARP NO RADIATION OF PAIN STATES HE HAS BEEN HAVING THIS PAIN OFF AN ON AND NOTICES IT MORE WHEN HE IS LAY ING DOWN/TRYING TO SLEEP--SLEEPS ON HIS STOMACH HAS HAD 1 KIDNEY STONE IN THE PAST, PASSED IT ON HIS OWN. HAS NOT SEEN A UROLOGIST NO URINARY SYMPTOMS OR HEMATURIA PT HAS HAD COVID-19 VACCINE X 3--LAST ONE 02/2021. MULTITUDE OF VISITS--THIS IS 7TH VISIT SINCE MAY OF THIS YEAR. PCP: MIGEL [facility]AND Allergies and Home Medications Allergies Coded Allergies: No Known Drug Allergies (Unverified , 09/21/19) Patient Home Medication List Home Medication List Reviewed: Yes Atorvastatin Calcium (Lipitor) 10 Mg Tablet, 10 MG PO DAILY Prescribed by: SARAY AVINA on 09/22/19 0821 Cyclobenzaprine HCl (Cyclobenzaprine HCl) 10 Mg Tablet, 10 MG PO Q8H PRN for SPASMS Prescribed by: EMMETT RANGEL on 09/03/21 1239 Cyclobenzaprine HCl (Cyclobenzaprine HCl) 10 Mg Tablet, 10 MG PO Q8H PRN for SPASMS Prescribed by: NABIL LEBLANC on 12/13/212037 Meloxicam (Meloxicam) 15 Mg Tablet, 15 MG PO DAILY Prescribed by: NABIL LEBLANC on 12/13/212037 Ondansetron (Ondansetron Odt) 8 Mg Tab.rapdis, 8 MG PO Q8H PRN for nausea Prescribed by: REGINALDO MONZON on 03/27/21 122 Pantoprazole Sodium (Protonix) 40 Mg Tablet.dr, 40 MG PO DAILY Prescribed by: JOE DAVE on 05/30/21 181 Sertraline HCl (Sertraline HCl) 25 Mg Tablet, 25 MG PO DAILY Prescribed by: GUIDO GIRALDO on 09/06/20 1447 Review of Systems Review of Systems Constitutional: no symptoms reported EENTM: No Symptoms Reported Respiratory: See HPI, Cough, Shortness of Air Cardiovascular: See HPI, Chest Pain; Denies Edema, Denies Irregular Heart Rate, Denies Lightheadedness, Denies Palpitations, Denies Syncope Gastrointestinal: See HPI; Denies Abdominal Pain; Constipated; Denies Diarrhea; Nausea; Denies Vomiting Genitourinary: No Symptoms Reported Musculoskeletal: see HPI, back pain Skin: no symptoms reported Psychiatric/Neurological: No Symptoms Reported Endocrine: No Symptoms Reported Hematologic/Lymphatic: No Symptoms Reported Past Pywfdvj-Rkqexq-Cxjhij Hx Patient Social History Tobacco Use?: No Use of E-Cig and/or Vaping dev: No Substance use?: No Alcohol Use?: No Pt feels they are or have been: No Immunizations Up To Date Tetanus Booster (TDap): Unknown First/Initial COVID19 Vaccinat: RECEIVED, UNK WHEN Second COVID19 Vaccination Jim: RECEIVED, UNK WHEN Third COVID19 Vaccination Date: UNKNOWN 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 Seasonal Allergies Seasonal Allergies: No Past Medical History Surgeries: Yes (CARDIAC CATH 09/22/19-NO INTERVENTION ) Respiratory: Yes Pneumonia Currently Using CPAP: No Currently Using BIPAP: No Cardiac: Yes (V-FIB DURING CARDIAC CATH.) High Cholesterol, Hypertension Neurological: Yes Headaches /Migraines Reproductive Disorders: No Genitourinary: Yes Kidney Stones Gastrointestinal: Yes Chronic Diarrhea, Irritable Bowel Musculoskeletal: No Endocrine: Yes (MORBID OBESITY) HEENT: Yes (POOR DENTITION) Cancer: No Psychosocial: No Anxiety Integumentary: No Blood Disorders: No Adverse Reaction/Blood Tranf: No Family Medical History CARDIAC CATH 09/22/[address] 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 Dominant right coronary artery with no obstructive disease, LAD is from the left coronary cusp with no obstructive disease 3. Normal left ventricular size, EF 50 percent 4. Normal aortic root DISCUSSION AND RECOMMENDATION: Patient had ventricular fibrillation during the initial angiogram yesterday, currently tolerated the procedure well. I will start him on Lipitor. Arrange for follow-up as an outpatient Physical Exam Vital Signs Vital Signs - First Documented 12/13/21 17:36 Temp 36.7 Pulse 102 Resp 20 B/P (MAP) 177/100 (125) Pulse Ox 97 O2 Delivery Room Air Capillary Refill : NONE Height, Weight, BMI Height: 5'11.00" Weight: 450lbs. oz. 204.469833en; 59.00 BMI Method:Stated General Appearance: No Apparent Distress, WD/WN, Obese (MORBIDLY OBESE), Other (TALKS VERY LOUDLY NON-STOP, LAUGHING/JOVIAL, DOES NOT APPEAR ILL OR TO BE IN ANY DISCOMFORT OR DISTRESS. 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 NO BONY TENDERNESS. PALPATION REPRODUCES BACK / FLANK PAIN Progress/Results/Core Measures Results/Orders Lab Results Laboratory Tests Test 12/13/21 17:50 12/13/21 18:05 12/13/21 18:12 Range/Units White Blood Count 7.6 4.3-11.0 10^3/uL Red Blood Count 4.98 4.30-5.52 10^6/uL Hemoglobin 13.7 13.3-17.7 g/dL Hematocrit 42 40-54 % Mean Corpuscular Volume 84 80-99 fL Mean Corpuscular Hemoglobin 28 25-34 pg Mean Corpuscular Hemoglobin Concent 33 32-36 g/dL Red Cell Distribution Width 13.8 10.0-14.5 % Platelet Count 177 130-400 10^3/uL Mean Platelet Volume 13.5 H 9.0-12.2 fL Immature Granulocyte % (Auto) 0 % Neutrophils (%) (Auto) 65 42-75 % Lymphocytes (%) (Auto) 25 12-44 % Monocytes (%) (Auto) 6 0-12 % Eosinophils (%) (Auto) 3 0-10 % Basophils (%) (Auto) 1 0-10 % Neutrophils # (Auto) 4.9 1.8-7.8 10^3/uL Lymphocytes # (Auto) 1.9 1.0-4.0 10^3/uL Monocytes # (Auto) 0.5 0.0-1.0 10^3/uL Eosinophils # (Auto) 0.2 0.0-0.3 10^3/uL Basophils # (Auto) 0.1 0.0-0.1 10^3/uL Immature Granulocyte # (Auto) 0.0 0.0-0.1 10^3/uL Percent Immature Platelet Fraction 17.0 H 0.0-7.6 % Prothrombin Time 13.3 12.2-14.7 SEC INR Comment 1.0 0.8-1.4 Activated Partial Thromboplast Time 27 24-35 SEC D-Dimer 0.24 0.00-0.49 UG/ML Sodium Level 144 135-145 MMOL/L Potassium Level 3.4 L 3.6-5.0 MMOL/L Chloride Level 106 98-107 MMOL/L Carbon Dioxide Level 22 21-32 MMOL/L Anion Gap 16 H 5-14 MMOL/L Blood Urea Nitrogen 18 7-18 MG/DL Creatinine 1.11 0.60-1.30 MG/DL Estimat Glomerular Filtration Rate 91 BUN/Creatinine Ratio 16 Glucose Level 103 70-105 MG/DL Calcium Level 9.4 8.5-10.1 MG/DL Corrected Calcium 9.2 8.5-10.1 MG/DL Magnesium Level 2.2 1.6-2.4 MG/DL Total Bilirubin 0.5 0.1-1.0 MG/DL Aspartate Amino Transf (AST/SGOT) 22 5-34 U/L Alanine Aminotransferase (ALT/SGPT) 33 0-55 U/L Alkaline Phosphatase 57 40-136 U/L Total Creatine Kinase 224 H 30-200 U/L Creatine Kinase MB 1.1 <6.6 NG/ML Myoglobin 62.9 10.0-92.0 NG/ML Troponin I < 0.028 <0.028 NG/ML B-Type Natriuretic Peptide 10.3 <100.0 PG/ML Total Protein 7.5 6.4-8.2 GM/DL Albumin 4.2 3.2-4.5 GM/DL Amylase Level 31 25-125 U/L Lipase 26 8-78 U/L Influenza Type A (RT-PCR) Not Detected Not Detecte Influenza Type B (RT-PCR) Not Detected Not Detecte SARS-CoV-2 RNA (RT-PCR) Not Detected Not Detecte Urine Color YELLOW Urine Clarity CLEAR Urine pH 5.0 5-9 Urine Specific [place] >=1.030 1.016-1.022 Urine Protein NEGATIVE NEGATIVE Urine Glucose (UA) NEGATIVE NEGATIVE Urine Ketones NEGATIVE NEGATIVE Urine Nitrite NEGATIVE NEGATIVE Urine Bilirubin NEGATIVE NEGATIVE Urine Urobilinogen 0.2 < = 1.0 MG/DL Urine Leukocyte Esterase NEGATIVE NEGATIVE Urine RBC (Auto) NEGATIVE NEGATIVE Urine RBC NONE /HPF Urine WBC RARE /HPF Urine Squamous Epithelial Cells NONE /HPF Urine Crystals NONE /LPF Urine Bacteria TRACE /HPF Urine Casts PRESENT /LPF Urine Hyaline Casts RARE /LPF Urine Mucus SMALL H /LPF Urine Culture Indicated NO Urine Opiates Screen NEGATIVE NEGATIVE Urine Oxycodone Screen NEGATIVE NEGATIVE Urine Methadone Screen NEGATIVE NEGATIVE Urine Propoxyphene Screen NEGATIVE NEGATIVE Urine Barbiturates Screen NEGATIVE NEGATIVE Ur Tricyclic Antidepressants Screen NEGATIVE NEGATIVE Urine Phencyclidine Screen NEGATIVE NEGATIVE Urine Amphetamines Screen NEGATIVE NEGATIVE Urine Methamphetamines Screen NEGATIVE NEGATIVE Urine Benzodiazepines Screen NEGATIVE NEGATIVE Urine Cocaine Screen NEGATIVE NEGATIVE Urine Cannabinoids Screen NEGATIVE NEGATIVE My Orders Orders - BENJIMERNA GarciaA Margarita DO Cbc With Automated Diff (12/13/21 17:57) Magnesium (12/13/21 17:57) Chest 1 View, Ap/Pa Only (12/13/21 17:57) Ekg Tracing (12/13/21 17:57) Comprehensive Metabolic Panel (12/13/21 17:57) Myoglobin Serum (12/13/21 17:57) Protime With Inr (12/13/21 17:57) Partial Thromboplastin Time (12/13/21 17:57) O2 (12/13/21 17:57) Monitor-Rhythm Ecg Trace Only (12/13/21 17:57) Ed Iv/Invasive Line Start (12/13/21 17:57) Creatine Kinase (12/13/21 17:57) Creatine Kinase Mb (12/13/21 17:57) Lipase (12/13/21 17:57) Amylase (12/13/21 17:57) Bnp [place] (12/13/21 17:57) Fibrin Degradation Products (12/13/21 17:57) Troponin I Vick (12/13/21 17:57) Aspirin Chewable Tablet (Baby Aspirin Ch (12/13/21 18:00) Drug Screen Stat (Urine) (12/13/21 17:57) Ua Culture If Indicated (12/13/21 17:57) Covid 19 Inhouse Test (12/13/21 18:05) Ketorolac Injection (Toradol Injection) (12/13/21 18:05) Influenza A And B By Pcr (12/13/21 18:05) Isolation Central Supply Req (12/13/21 18:05) Orphenadrine Inj (Ed Only) (Norflex Inje (12/13/21 19:15) Medications Given in ED Current Medications Medications Dose Ordered Sig/Vahid Route Start Time Stop Time Status Last Admin Dose Admin Aspirin 324 mg ONCE ONCE PO 12/13/21 18:00 12/13/21 18:01 DC 12/13/21 18:02 324 MG Orphenadrine Citrate 60 mg ONCE ONCE IVP 12/13/21 19:15 12/13/21 19:16 DC 12/13/21 19:39 60 MG Vital Signs/I&O 12/13/21 12/13/21 12/13/21 12/13/21 17:36 17:58 18:01 20:48 Temp 36.7 Pulse 102 88 71 Resp 20 18 20 B/P (MAP) 177/100 (125) 139/81 (100) 108/68 Pulse Ox 97 99 97 99 O2 Delivery Room Air Room Air Room Air Room Air Blood Pressure Mean: 100 Progress Progress Note : Progress Note GIVEN: -ASPIRIN -TORADOL -NORFLEX NO COMPLAINTS OF CHEST PAIN FOR REMAINDER OF ER STAY. BACK PAIN MUCH IMPROVED AT DISMISSAL MARKED DELAY IN OBTAINING PT/PTT/INR/D-DIMER DUE TO MACHINE BEING DOWN--HAD TO SEND OUT TESTS AND WAIT FOR RESULTS. Initial ECG Impression Date: Dec 13, 2021 Initial ECG Impression Time: 17:40 Initial ECG Rate: 78 Initial ECG Rhythm: Normal Sinus Initial ECG Impression: Nonspecific Changes (IVCD) Initial ECG Comparisson: Unchanged Diagnostic Imaging Comments CXR--PER RADIOLOGIST REPORT AT 1844 FINDINGS: The cardiomediastinal silhouette is unremarkable. The pulmonary vasculature is within normal limits. The lungs and pleural spaces are clear. IMPRESSION: No evidence of an acute cardiopulmonary process. Reviewed: Reviewed by Me Departure Impression Primary Impression: Chest wall pain Additional Impression: LEFT LOWER BACK PAIN Disposition: HOME, SELF-CARE Condition: Improved Departure-Patient Inst. Decision time for Depature: 20:37 Referrals: [facility] (PCP/Family) Primary Care Physician Patient Instructions: Chest Pain That Is Not Caused by the Heart (DC), Low Back Pain (DC), Chest Pain, Adult ED Add. Discharge Instructions: DO NOT TAKE ALEVE WHILE YOU ARE ON THE PRESCRIPTION MEDICATION MELOXICAM FOLLOW UP WITH YOUR DR IN 2-3 DAYS FOR FURTHER CARE All discharge instructions reviewed with patient and/or family. Voiced understanding. Scripts Meloxicam (Meloxicam) 15 Mg Tablet 15 MG PO DAILY, #10 TAB Prov: NABIL LEBLANC DO 12/13/21 Cyclobenzaprine HCl (Cyclobenzaprine HCl) 10 Mg Tablet 10 MG PO Q8H PRN for SPASMS, #15 TAB 0 Refills Prov: NABIL LEBLANC DO 12/13/21 Images Full Body/Extremities Full 1 - Moderate, Tenderness 2 - Moderate, Tenderness NABLI LEBLANC DO Dec 13, 2021 18:04
[2021-12-13 18:05] LABS: HEMOGLOBIN 13.7 g/dL (13.3-17.7); LYMPHOCYTES # (AUTO) 1.9 10^3/uL (1.0-4.0); LYMPHOCYTES % (AUTO) 25 % (12-44)
[2021-12-13] MEDS ORDERED: KETOROLAC 30 MG/ML VIAL IVP STA (18:05)
[2021-12-13 18:07] LABS: BASOPHILS # (AUTO) 0.1 10^3/uL (0.0-0.1); BASOPHILS % (AUTO) 1 % (0-10); EOSINOPHILS # (AUTO) 0.2 10^3/uL (0.0-0.3); EOSINOPHILS % (AUTO) 3 % (0-10); HEMATOCRIT 42 % (40-54); MEAN CORPUSCULAR HEMOGLOBIN 28 pg (25-34); MEAN CORPUSCULAR HGB CONC 33 g/dL (32-36); MEAN CORPUSCULAR VOLUME 84 fL (80-99); MEAN PLATELET VOLUME 13.5 fL (9.0-12.2); MONOCYTES # (AUTO) 0.5 10^3/uL (0.0-1.0); MONOCYTES % (AUTO) 6 % (0-12); NEUTROPHILS # (AUTO) 4.9 10^3/uL (1.8-7.8); NEUTROPHILS % (AUTO) 65 % (42-75); PLATELET COUNT 177 10^3/uL (130-400); WHITE BLOOD COUNT 7.6 10^3/uL (4.3-11.0)
[2021-12-13 18:17] LABS: ALBUMIN 4.2 GM/DL (3.2-4.5); POTASSIUM 3.4 MMOL/L (3.6-5.0)
[2021-12-13 18:19] LABS: CALCIUM 9.4 MG/DL (8.5-10.1)
[2021-12-13 18:20] LABS: TOTAL PROTEIN 7.5 GM/DL (6.4-8.2)
[2021-12-13 18:22] LABS: BILIRUBIN,TOTAL 0.5 MG/DL (0.1-1.0)
[2021-12-13 18:23] LABS: CREATININE SERUM 1.11 MG/DL (0.60-1.30)
[2021-12-13 18:26] LABS: MAGNESIUM 2.2 MG/DL (1.6-2.4)
[2021-12-13 18:27] LABS: BILIRUBIN,URINE NEGATIVE (NEGATIVE); CLARITY,URINE CLEAR; COLOR,URINE YELLOW; GLUCOSE, URINE (UA) NEGATIVE (NEGATIVE); KETONES,URINE NEGATIVE (NEGATIVE); LEUKOCYTE ESTERASE ,URINE NEGATIVE (NEGATIVE); NITRITE,URINE NEGATIVE (NEGATIVE); PROTEIN,URINE NEGATIVE (NEGATIVE)
[2021-12-13 18:34] LABS: CREATINE KINASE MB 1.1 NG/ML (<6.6)
--- NOTE | 2021-12-13 18:34 | Diagnostic Imaging Report ---
INDICATION: Chest pain. EXAMINATION: Chest, 12/13/2021. COMPARISON: 10/22/2021. FINDINGS: The cardiomediastinal silhouette is unremarkable. The pulmonary vasculature is within normal limits. The lungs and pleural spaces are clear. IMPRESSION: No evidence of an acute cardiopulmonary process. Dictated by: Dictated on workstation # [id number]
[2021-12-13 18:36] LABS: BACTERIA,URINE TRACE /HPF; HYALINE CASTS, URINE RARE /LPF; WBC,URINE RARE /HPF
[2021-12-13 18:40] LABS: AMPHETAMINE SCREEN, URINE NEGATIVE (NEGATIVE); BARBITURATE SCREEN URINE NEGATIVE (NEGATIVE); BENZODIAZEPINES SCREEN URINE NEGATIVE (NEGATIVE); CANNABINOID SCREEN, URINE NEGATIVE (NEGATIVE); COCAINE SCREEN URINE NEGATIVE (NEGATIVE); METHADONE STAT NEGATIVE (NEGATIVE); OPIATE SCREEN URINE NEGATIVE (NEGATIVE); OXYCODONE STAT NEGATIVE (NEGATIVE); PROPOXYPHENE STAT NEGATIVE (NEGATIVE); TRICYCLIC ANTIDEPRESSANTS SCRE NEGATIVE (NEGATIVE)
[2021-12-13] MEDS ORDERED: ORPHENADRINE 60 MG/2 ML (NORFLEX) AMP (ED ONLY) IVP ONE (19:15)
[2021-12-13 20:21] LABS: PROTHROMBIN TIME PATIENT 13.3 SEC (12.2-14.7)
[2021-12-13] MEDS ORDERED: CYCL10TA25 PO (20:38)
[2021-12-13] MEDS ORDERED: MELO15TA39 PO (20:38)
[2021-12-13 20:48] VITALS: BP 108/68
== END 2021-12-13 20:48 ==
LOC: EDUNIT# 17:34 → ER 17:35
DX: M54.50 Low back pain, unspecified (principal); R07.89 Other chest pain; E66.01 Morbid (severe) obesity due to excess calories; Z98.61 Coronary angioplasty status; Z68.43 Body mass index [BMI] 50.0-59.9, adult; Z20.822 Contact with and (suspected) exposure to COVID-19
CPT/HCPCS: 36415; 71045; 80053; 80306; 81000; 82150; 82550; 82553; 83690; 83735; 83874; 83880; 84484; 85025; 85379; 85610; 85730; 87636; 93005; 93041

== ENCOUNTER 2022-01-19 18:13 | Emergency (ER) | payer OTHER ==
[~2022-01-19] VITALS: Ht 177.8 cm; Wt 204.0 kg
[~2022-01-19 18:13] MED LIST changes: +MELO15TA39 PO
[2022-01-19] MEDS ORDERED: ASPIRIN 81 MG CHEW (CHILDREN'S ASA) PO ONE (18:30)
[2022-01-19] MEDS ORDERED: NITROGLYCERIN 0.4 MG SL TABS BTL 25'S SL PRN (18:30)
[2022-01-19 18:38] LABS: BASOPHILS # (AUTO) 0.1 10^3/uL (0.0-0.1); HEMATOCRIT 43 % (40-54); HEMOGLOBIN 13.8 g/dL (13.3-17.7); MEAN CORPUSCULAR HEMOGLOBIN 27 pg (25-34); MEAN CORPUSCULAR HGB CONC 32 g/dL (32-36); MEAN CORPUSCULAR VOLUME 84 fL (80-99)
[2022-01-19 18:40] LABS: BASOPHILS % (AUTO) 1 % (0-10); EOSINOPHILS # (AUTO) 0.2 10^3/uL (0.0-0.3); EOSINOPHILS % (AUTO) 2 % (0-10); LYMPHOCYTES # (AUTO) 1.9 10^3/uL (1.0-4.0); LYMPHOCYTES % (AUTO) 27 % (12-44); MEAN PLATELET VOLUME 13.4 fL (9.0-12.2); MONOCYTES # (AUTO) 0.4 10^3/uL (0.0-1.0); MONOCYTES % (AUTO) 6 % (0-12); NEUTROPHILS # (AUTO) 4.4 10^3/uL (1.8-7.8); NEUTROPHILS % (AUTO) 64 % (42-75); PLATELET COUNT 182 10^3/uL (130-400); WHITE BLOOD COUNT 6.9 10^3/uL (4.3-11.0)
--- NOTE | 2022-01-19 18:40 | ED Chest Pain ---
General Chief Complaint: Chest Pain Stated Complaint: CHEST PAIN Source: patient, old records History of Present Illness Date Seen by Provider: Jan 19, 2022 Time Seen by Provider: 18:18 Initial Comments PT ARRIVES VIA POV FROM HOME C/O CHEST PAIN X 4 HOURS PAIN MOVES AROUND ALL OVER CHEST, AND IS MORE IN THE LEFT SIDE OF HIS CHEST AT THIS TIME WAS SITTING WHEN PAIN BEGAN + SHORTNESS OF BREATH + SWEATS + NAUSEA, NO VOMITING + SWELLING IN LEGS/FEET + COUGH NO FEVER HAS LONG HISTORY OF SAME--HAS BEEN HERE A MULTITUDE OF TIMES FOR THIS EXACT SAME COMPLAINT WORK UP'S HAVE ALL BEEN NEGATIVE HAD CARDIAC CATH IN 2019, SHOWED NON-OBSTRUCTIVE DISEASE. PCP: [facility] STRING STUDIES DIRECTOR: DR. AVINA Allergies and Home Medications Allergies Coded Allergies: No Known Drug Allergies (Unverified , 09/21/19) Patient Home Medication List Home Medication List Reviewed: Yes Atorvastatin Calcium (Lipitor) 10 Mg Tablet, 10 MG PO DAILY Prescribed by: SARAY AVINA on 09/22/19 0821 Cyclobenzaprine HCl (Cyclobenzaprine HCl) 10 Mg Tablet, 10 MG PO Q8H PRN for SPASMS Prescribed by: EMMETT RANGEL on 09/03/21 1239 Cyclobenzaprine HCl (Cyclobenzaprine HCl) 10 Mg Tablet, 10 MG PO Q8H PRN for SPASMS Prescribed by: NABIL LEBLANC on 12/13/212037 Meloxicam (Meloxicam) 15 Mg Tablet, 15 MG PO DAILY Prescribed by: NABIL LEBLANC on 12/13/212037 Ondansetron (Ondansetron Odt) 8 Mg Tab.rapdis, 8 MG PO Q8H PRN for nausea Prescribed by: REGINALDO MONZON on 03/27/21 1226 Pantoprazole Sodium (Protonix) 40 Mg Tablet.dr, 40 MG PO DAILY Prescribed by: JOE DAVE on 05/30/21 181 Sertraline HCl (Sertraline HCl) 25 Mg Tablet, 25 MG PO DAILY Prescribed by: GUIDO GIRALDO on 09/06/20 1447 Review of Systems Review of Systems Constitutional: see HPI, diaphoresis EENTM: No Symptoms Reported Respiratory: See HPI, Cough, Shortness of Air Cardiovascular: See HPI, Chest Pain, Edema Gastrointestinal: See HPI; Denies Abdominal Pain; Nausea; Denies Vomiting Genitourinary: No Symptoms Reported Musculoskeletal: see HPI Skin: no symptoms reported Psychiatric/Neurological: No Symptoms Reported Endocrine: No Symptoms Reported Hematologic/Lymphatic: No Symptoms Reported Past Oppycej-Vomzka-Jvhldt Hx Patient Social History Tobacco Use?: No Substance use?: No Alcohol Use?: No Immunizations Up To Date Tetanus Booster (TDap): Unknown First/Initial COVID19 Vaccinat: RECEIVED, UNK WHEN Second COVID19 Vaccination Jim: RECEIVED, UNK WHEN Third COVID19 Vaccination Date: UNKNOWN Seasonal Allergies Seasonal Allergies: No Past Medical History Surgeries: Yes (CARDIAC CATH 09/22/19-NO INTERVENTION ) Cardiac Respiratory: Yes Pneumonia Currently Using CPAP: No Currently Using BIPAP: No Cardiac: Yes (V-FIB DURING CARDIAC CATH.) High Cholesterol, Hypertension Neurological: Yes Headaches /Migraines Reproductive Disorders: No Genitourinary: Yes Kidney Stones Gastrointestinal: Yes Chronic Diarrhea, Irritable Bowel Musculoskeletal: No Endocrine: Yes (MORBID OBESITY) HEENT: Yes (POOR DENTITION) Cancer: No Psychosocial: Yes Anxiety Integumentary: No Blood Disorders: No Adverse Reaction/Blood Tranf: No Family Medical History CARDIAC CATH 09/22/[address] 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 Dominant right coronary artery with no obstructive disease, LAD is from the left coronary cusp with no obstructive disease 3. Normal left ventricular size, EF 50 percent 4. Normal aortic root DISCUSSION AND RECOMMENDATION: Patient had ventricular fibrillation during the initial angiogram yesterday, currently tolerated the procedure well. I will start him on Lipitor. Arrange for follow-up as an outpatient Physical Exam Vital Signs Vital Signs - First Documented 01/19/22 18:16 Temp 36.8 Pulse 82 Resp 13 B/P (MAP) 147/103 (118) Pulse Ox 96 O2 Delivery Room Air Capillary Refill : Height, Weight, BMI Height: 5'11.00" Weight: 450lbs. oz. 204.954483vc; 59.00 BMI Method:Stated General Appearance: No Apparent Distress, WD/WN, Obese (MORBIDLY OBESE), Other (PT TALKS AT LENGTH, VERY NON-CHALANT. DOES NOT APPEAR TO BE ILL OR IN ANY DISCOMFORT OR DISTRESS. 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 Norm as Tested Skin: Normal Color, Warm/Dry Progress/Results/Core Measures Results/Orders Lab Results Laboratory Tests Test 01/19/22 18:27 01/19/22 18:30 01/19/22 19:48 Range/Units White Blood Count 6.9 4.3-11.0 10^3/uL Red Blood Count 5.08 4.30-5.52 10^6/uL Hemoglobin 13.8 13.3-17.7 g/dL Hematocrit 43 40-54 % Mean Corpuscular Volume 84 80-99 fL Mean Corpuscular Hemoglobin 27 25-34 pg Mean Corpuscular Hemoglobin Concent 32 32-36 g/dL Red Cell Distribution Width 13.7 10.0-14.5 % Platelet Count 182 130-400 10^3/uL Mean Platelet Volume 13.4 H 9.0-12.2 fL Immature Granulocyte % (Auto) 0 % Neutrophils (%) (Auto) 64 42-75 % Lymphocytes (%) (Auto) 27 12-44 % Monocytes (%) (Auto) 6 0-12 % Eosinophils (%) (Auto) 2 0-10 % Basophils (%) (Auto) 1 0-10 % Neutrophils # (Auto) 4.4 1.8-7.8 10^3/uL Lymphocytes # (Auto) 1.9 1.0-4.0 10^3/uL Monocytes # (Auto) 0.4 0.0-1.0 10^3/uL Eosinophils # (Auto) 0.2 0.0-0.3 10^3/uL Basophils # (Auto) 0.1 0.0-0.1 10^3/uL Immature Granulocyte # (Auto) 0.0 0.0-0.1 10^3/uL Percent Immature Platelet Fraction 16.0 H 0.0-7.6 % Erythrocyte Sedimentation Rate 7 0-15 MM/HR Prothrombin Time 13.3 12.2-14.7 SEC INR Comment 1.0 0.8-1.4 Activated Partial Thromboplast Time 28 24-35 SEC D-Dimer < 0.27 0.00-0.49 UG/ML Sodium Level 142 135-145 MMOL/L Potassium Level 3.7 3.6-5.0 MMOL/L Chloride Level 109 H 98-107 MMOL/L Carbon Dioxide Level 23 21-32 MMOL/L Anion Gap 10 5-14 MMOL/L Blood Urea Nitrogen 12 7-18 MG/DL Creatinine 0.95 0.60-1.30 MG/DL Estimat Glomerular Filtration Rate 110 BUN/Creatinine Ratio 13 Glucose Level 119 H 70-105 MG/DL Calcium Level 9.3 8.5-10.1 MG/DL Corrected Calcium 9.3 8.5-10.1 MG/DL Magnesium Level 2.2 1.6-2.4 MG/DL Total Bilirubin 0.5 0.1-1.0 MG/DL Aspartate Amino Transf (AST/SGOT) 24 5-34 U/L Alanine Aminotransferase (ALT/SGPT) 30 0-55 U/L Alkaline Phosphatase 57 40-136 U/L Total Creatine Kinase 202 H 30-200 U/L Creatine Kinase MB 1.0 <6.6 NG/ML Myoglobin 56.7 10.0-92.0 NG/ML Troponin I < 0.028 <0.028 NG/ML C-Reactive Protein High Sensitivity 0.16 0.00-0.50 MG/DL B-Type Natriuretic Peptide 15.3 <100.0 PG/ML Total Protein 7.2 6.4-8.2 GM/DL Albumin 4.0 3.2-4.5 GM/DL Amylase Level 33 25-125 U/L Lipase 22 8-78 U/L Serum Alcohol < 10 <10 MG/DL Influenza Type A (RT-PCR) Not Detected Not Detecte Influenza Type B (RT-PCR) Not Detected Not Detecte SARS-CoV-2 RNA (RT-PCR) Not Detected Not Detecte Urine Color YELLOW Urine Clarity CLEAR Urine pH 6.0 5-9 Urine Specific [place] 1.025 H 1.016-1.022 Urine Protein NEGATIVE NEGATIVE Urine Glucose (UA) NEGATIVE NEGATIVE Urine Ketones NEGATIVE NEGATIVE Urine Nitrite NEGATIVE NEGATIVE Urine Bilirubin NEGATIVE NEGATIVE Urine Urobilinogen 0.2 < = 1.0 MG/DL Urine Leukocyte Esterase NEGATIVE NEGATIVE Urine RBC (Auto) NEGATIVE NEGATIVE Urine RBC NONE /HPF Urine WBC NONE /HPF Urine Crystals NONE /LPF Urine Bacteria NEGATIVE /HPF Urine Casts NONE /LPF Urine Mucus NEGATIVE /LPF Urine Culture Indicated NO Urine Opiates Screen NEGATIVE NEGATIVE Urine Oxycodone Screen NEGATIVE NEGATIVE Urine Methadone Screen NEGATIVE NEGATIVE Urine Propoxyphene Screen NEGATIVE NEGATIVE Urine Barbiturates Screen NEGATIVE NEGATIVE Ur Tricyclic Antidepressants Screen NEGATIVE NEGATIVE Urine Phencyclidine Screen NEGATIVE NEGATIVE Urine Amphetamines Screen NEGATIVE NEGATIVE Urine Methamphetamines Screen NEGATIVE NEGATIVE Urine Benzodiazepines Screen NEGATIVE NEGATIVE Urine Cocaine Screen NEGATIVE NEGATIVE Urine Cannabinoids Screen NEGATIVE NEGATIVE My Orders Orders - NABIL LEBLANC DO Ekg Tracing (01/19/22 18:15) Ed Iv/Invasive Line Start (01/19/22 18:17) O2 (01/19/22 18:17) Monitor-Rhythm Ecg Trace Only (01/19/22 18:17) Alcohol (01/19/22 18:17) Bnp [place] (01/19/22 18:17) Cbc With Automated Diff (01/19/22 18:17) Comprehensive Metabolic Panel (01/19/22 18:17) Creatine Kinase (01/19/22 18:17) Creatine Kinase Mb (01/19/22 18:17) Hs C Reactive Protein (01/19/22 18:17) Erythrocyte Sedimentation Rate (01/19/22 18:17) Fibrin Degradation Products (01/19/22 18:17) Drug Screen Stat (Urine) (01/19/22 18:17) Lipase (01/19/22 18:17) Magnesium (01/19/22 18:17) Protime With Inr (01/19/22 18:17) Partial Thromboplastin Time (01/19/22 18:17) Ua Culture If Indicated (01/19/22 18:17) Troponin I [place] (01/19/22 18:17) Chest 1 View, Ap/Pa Only (01/19/22 18:17) Myoglobin Serum (01/19/22 18:17) O2 (01/19/22 18:17) Ed Iv/Invasive Line Start (01/19/22 18:17) Amylase (01/19/22 18:17) Nitroglycerin 0.4 Mg Btl 25's (Nitrostat (01/19/22 18:30) Aspirin Chewable Tablet (Baby Aspirin Ch (01/19/22 18:30) Covid 19 Inhouse Test (01/19/22 18:17) Influenza A And B By Pcr (01/19/22 18:17) Isolation Central Supply Req (01/19/22 18:17) Medications Given in ED Current Medications Medications Dose Ordered Sig/Vahid Route Start Time Stop Time Status Last Admin Dose Admin Aspirin 324 mg ONCE ONCE PO 01/19/22 18:30 01/19/22 18:31 DC 01/19/22 18:50 324 MG Nitroglycerin 0.4 mg UD PRN SL 01/19/22 18:30 01/19/22 21:00 DC 01/19/22 18:50 0.4 MG Vital Signs/I&O 01/19/22 01/19/22 18:16 20:58 Temp 36.8 Pulse 82 89 Resp 13 12 B/P (MAP) 147/103 (118) 162/97 Pulse Ox 96 95 O2 Delivery Room Air Room Air Progress Progress Note : Progress Note GIVEN ASPIRIN GIVEN TORADOL FOR PAIN UNEVENTFUL ER STAY Initial ECG Impression Date: Jan 19, 2022 Initial ECG Impression Time: 18:22 Initial ECG Rate: 82 Initial ECG Rhythm: Normal Sinus Diagnostic Imaging Comments CXR--PER RADIOLOGIST REPORT AT 2026 FINDINGS: The lungs appear clear without focal airspace opacities or consolidation. There are no findings of an effusion. There is no evidence of a pneumothorax. Heart size and mediastinal contours appear appropriate. Pulmonary vascularity appears within normal limits. There is no acute or suspicious osseous abnormality demonstrated. IMPRESSION: No radiographic evidence of an acute cardiopulmonary process. Reviewed: Reviewed by Me Departure Impression Primary Impression: Chest wall pain Additional Impressions: Morbid obesity HTN (hypertension) Disposition: HOME, SELF-CARE Condition: Improved Departure-Patient Inst. Decision time for Depature: 20:30 Referrals: [facility] (PCP/Family) Primary Care Physician Patient Instructions: DASH Diet, High Blood Pressure (DC), Chest Pain (DC), Costochondritis (DC), Heart Healthy Diet Add. Discharge Instructions: HOME, REST TAKE YOUR REGULAR MEDICATIONS PRESCRIBED CONTINUE ALEVE AND MUSCLE RELAXANT NEEDED FOR PAIN FOLLOW UP WITH [facility] THIS WEEK FOR FURTHER CARE All discharge instructions reviewed with patient and/or family. Voiced understanding. NABIL LEBLANC DO Jan 19, 2022 18:40
[2022-01-19 18:47] LABS: CHLORIDE 109 MMOL/L (98-107); POTASSIUM 3.7 MMOL/L (3.6-5.0); SODIUM 142 MMOL/L (135-145)
[2022-01-19 18:48] LABS: CALCIUM 9.3 MG/DL (8.5-10.1)
[2022-01-19 18:49] LABS: GLUCOSE 119 MG/DL (70-105); TOTAL PROTEIN 7.2 GM/DL (6.4-8.2)
[2022-01-19 18:50] LABS: CARBON DIOXIDE 23 MMOL/L (21-32)
[2022-01-19 18:51] LABS: BILIRUBIN,TOTAL 0.5 MG/DL (0.1-1.0)
[2022-01-19 18:53] LABS: ALKALINE PHOSPHATASE 57 U/L (40-136); CREATININE SERUM 0.95 MG/DL (0.60-1.30); FIBRIN DEGRADATION PRODUCTS < 0.27 UG/ML (0.00-0.49); PARTIAL THROMBOPLASTIN TIME 28 SEC (24-35); PROTHROMBIN TIME PATIENT 13.3 SEC (12.2-14.7)
[2022-01-19 18:54] LABS: BUN/CREATININE RATIO 13
[2022-01-19 18:55] LABS: GFR ESTIMATED 110
[2022-01-19 18:56] LABS: ALANINE AMINOTRANSFERASE 30 U/L (0-55); MAGNESIUM 2.2 MG/DL (1.6-2.4)
[2022-01-19 18:57] LABS: CREATINE KINASE 202 U/L (30-200); LIPASE 22 U/L (8-78)
--- NOTE | 2022-01-19 19:03 | Diagnostic Imaging Report ---
INDICATION: Chest pain. COMPARISON: 12/13/2021. FINDINGS: The lungs appear clear without focal airspace opacities or consolidation. There are no findings of an effusion. There is no evidence of a pneumothorax. Heart size and mediastinal contours appear appropriate. Pulmonary vascularity appears within normal limits. There is no acute or suspicious osseous abnormality demonstrated. IMPRESSION: No radiographic evidence of an acute cardiopulmonary process. Dictated by: Dictated on workstation # [id number]
[2022-01-19 19:07] LABS: ERYTHROCYTE SEDIMENTATION RATE 7 MM/HR (0-15)
[2022-01-19 19:53] LABS: BILIRUBIN,URINE NEGATIVE (NEGATIVE); CLARITY,URINE CLEAR; COLOR,URINE YELLOW; GLUCOSE, URINE (UA) NEGATIVE (NEGATIVE); KETONES,URINE NEGATIVE (NEGATIVE); LEUKOCYTE ESTERASE ,URINE NEGATIVE (NEGATIVE); NITRITE,URINE NEGATIVE (NEGATIVE); PROTEIN,URINE NEGATIVE (NEGATIVE)
[2022-01-19 20:01] LABS: BACTERIA,URINE NEGATIVE /HPF
[2022-01-19 20:13] LABS: AMPHETAMINE SCREEN, URINE NEGATIVE (NEGATIVE); BARBITURATE SCREEN URINE NEGATIVE (NEGATIVE); BENZODIAZEPINES SCREEN URINE NEGATIVE (NEGATIVE); CANNABINOID SCREEN, URINE NEGATIVE (NEGATIVE); COCAINE SCREEN URINE NEGATIVE (NEGATIVE); METHADONE STAT NEGATIVE (NEGATIVE); OPIATE SCREEN URINE NEGATIVE (NEGATIVE); OXYCODONE STAT NEGATIVE (NEGATIVE); PROPOXYPHENE STAT NEGATIVE (NEGATIVE); TRICYCLIC ANTIDEPRESSANTS SCRE NEGATIVE (NEGATIVE)
[2022-01-19 20:58] VITALS: BP 162/97
== END 2022-01-19 20:58 | disposition home or self-care (01) ==
LOC: EDUNIT# 18:13 → ER 18:15
DX: I10 Essential (primary) hypertension (principal); E66.01 Morbid (severe) obesity due to excess calories; Z98.61 Coronary angioplasty status; Z68.43 Body mass index [BMI] 50.0-59.9, adult; Z20.822 Contact with and (suspected) exposure to COVID-19
CPT/HCPCS: 71045; 80053; 80306; 81000; 82150; 82550; 82553; 83690; 83735; 83874; 83880; 84484; 85025; 85379; 85610; 85652; 85730; 86141; 87636; 93005; 93041; 99284; G0480; 36415; 80320

== ENCOUNTER 2022-02-24 19:25 | Emergency (ER) | payer OTHER ==
[2022-02-24 19:30] VITALS: BP 134/84
--- NOTE | 2022-02-24 21:33 | ED General ---
General Chief Complaint: General Problems/Pain Stated Complaint: HAD CHEST PAIN,LETHARGY Nursing Triage Note: PT AMBULATORY INTO ER VIA PRIVATE VEHICLE FROM HOME WITH COMPLAINT OF FATIGUE X3 DAYS. 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 PT STATES THAT AFTER SITTING DOWN, HE FELT MUCH BETTER. PT WENT HOME THAT NIGHT AND SLEPT ALL NIGHT. WOKE UP FOR 2 HOURS THURSDAY, THEN BACK TO BED AND SLEPT REMAINDER OF THURSDAY. PT STATES THAT HE WAS UP A COUPLE HOURS YESTERDAY AND AGAIN SLEPT REMAINDER OF DAY. PT SLEPT MOST OF TODAY AND BECAME MORE CONCERNED. PT DENIES OTHER COMPLAINTS. 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 HE FINISHED WORK AND CAME HOME AND WENT TO BED, AND HAS BEEN REALLY TIRED SINCE THEN PT STATES I WAKE UP AND EAT A SANDWICH AND GO BACK TO BED. SYMPTOMS ARE NOT ANY DIFFERENT TONIGHT HAS NOT SOUGHT CARE UNTIL TONIGHT. STATES HE SLEPT ALL DAY, AND IS SUPPOSED TO GO BACK TO WORK TOMORROW "AND I DO N'T WANT TO BE EXHAUSTED AT WORK" NO FEVER NO SHORTNESS OF BREATH NO HEADACHE NO BODY ACHES NO COUGH OR URI SYMTPOMS NO URINARY SYMPTOMS MILD NAUSEA AT TIMES, NO VOMITING OR DIARRHEA. HAS BEEN EATING AND DRINKING NORMALLY AND VOIDING NORMALLY. NO ABDOMINAL PAIN NO VISION CHANGES NO PARESTHESIAS OR MOTOR DEFICITS. "AND THE USUAL CHEST PAINS"--NOT HAVING PAIN NOW PT HAS BEEN HERE A MULTITUDE OF TIMES FOR VARIOUS COMPLAINTS, BUT MANY FOR CHRONIC CHEST PAIN COMPLAINTS--EXTENSIVE WORK UP'S INCLUDING A CARDIAC CATH HAVE ALL BEEN NEGATIVE. CHEST PAIN MOVES AROUND ALL OVER CHEST, AND IS REPRODUCIBLE WITH PALPATION OF CHEST. SEE OLD CHARTS FOR DETAILS. PT HAS HAD COVID-19 VACCINE X 4. NO FLU VACCINE. BROTHER AND BROTHER'S GIRLFRIEND ARE NOT ILL PT DID NOT HAVE TO WORK ON 02/20/22, AND FELT FINE ALL DAY. WOKE UP ON THURSDAY AND WAS TIRED BEFORE HE WENT TO WORK, AND THIS HAS CONTINUED. PCP: [facility] Allergies and Home Medications Allergies Coded Allergies: No Known Drug Allergies (Unverified , 09/21/19) Patient Home Medication List Home Medication List Reviewed: Yes Atorvastatin Calcium (Lipitor) 10 Mg Tablet, 10 MG PO DAILY Prescribed by: SARAY AVINA on 09/22/19 0821 Cyclobenzaprine HCl (Cyclobenzaprine HCl) 10 Mg Tablet, 10 MG PO Q8H PRN for SPASMS Prescribed by: EMMETT RANGEL on 09/03/21 1239 Cyclobenzaprine HCl (Cyclobenzaprine HCl) 10 Mg Tablet, 10 MG PO Q8H PRN for SPASMS Prescribed by: NABIL LEBLANC on 12/13/212037 Meloxicam (Meloxicam) 15 Mg Tablet, 15 MG PO DAILY Prescribed by: NABIL LEBLANC on 12/13/212037 Ondansetron (Ondansetron Odt) 8 Mg Tab.rapdis, 8 MG PO Q8H PRN for nausea Prescribed by: REGINALDO MONZON on 03/27/21 1226 Pantoprazole Sodium (Protonix) 40 Mg Tablet.dr, 40 MG PO DAILY Prescribed by: JOE DAVE on 05/30/21 1813 Sertraline HCl (Sertraline HCl) 25 Mg Tablet, 25 MG PO DAILY Prescribed by: GUIDO GIRALDO on 09/06/20 1447 Review of Systems Review of Systems Constitutional: see HPI; No fever; malaise EENTM: no symptoms reported Respiratory: no symptoms reported; No cough, No short of breath Cardiovascular: see HPI Gastrointestinal: see HPI Genitourinary: no symptoms reported Musculoskeletal: no symptoms reported Skin: no symptoms reported Psychiatric/Neurological: See HPI; Denies Headache, Denies Numbness, Denies Paresthesia, Denies Seizure, Denies Tingling, Denies Tremors, Denies Weakness Hematologic/Lymphatic: No Symptoms Reported Immunological/Allergic: no symptoms reported Past Nyhjgjn-Xcwadc-Cgpjce Hx Patient Social History Tobacco Use?: No Use of E-Cig and/or Vaping dev: No Substance use?: No Alcohol Use?: No Pt feels they are or have been: No Immunizations Up To Date Tetanus Booster (TDap): Unknown Influenza Vaccine Up-to-Date: No; Not Current First/Initial COVID19 Vaccinat: RECEIVED, UNK WHEN Second COVID19 Vaccination Jim: RECEIVED, UNK WHEN Third COVID19 Vaccination Date: RECEIVED, UNK WHEN COVID19 Vaccine Translational Specialist: MODERNA Seasonal Allergies Seasonal Allergies: No Past Medical History Surgery/Hospitalization HX: CAD Surgeries: Yes (CARDIAC CATH 09/22/19-NO INTERVENTION ) Cardiac Respiratory: Yes Pneumonia Currently Using CPAP: No Currently Using BIPAP: No Cardiac: Yes (V-FIB DURING CARDIAC CATH. CHRONIC CHEST PAIN COMPLAINTS) High Cholesterol, Hypertension Neurological: Yes Headaches /Migraines Reproductive Disorders: No Genitourinary: Yes Kidney Stones Gastrointestinal: Yes Chronic Diarrhea, Irritable Bowel Musculoskeletal: No Endocrine: Yes (MORBID OBESITY) HEENT: Yes (POOR DENTITION) Cancer: No Psychosocial: Yes Anxiety Integumentary: No Blood Disorders: No Adverse Reaction/Blood Tranf: No Family Medical History CARDIAC CATH 09/22/[address] 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 Dominant right coronary artery with no obstructive disease, LAD is from the left coronary cusp with no obstructive disease 3. Normal left ventricular size, EF 50 percent 4. Normal aortic root DISCUSSION AND RECOMMENDATION: Patient had ventricular fibrillation during the initial angiogram yesterday, currently tolerated the procedure well. I will start him on Lipitor. Arrange for follow-up as an outpatient Physical Exam Vital Signs Vital Signs - First Documented 02/24/22 19:30 Temp 36.8 Pulse 62 Resp 20 B/P (MAP) 134/84 (101) Pulse Ox 97 O2 Delivery Room Air Capillary Refill : Less Than 3 Seconds Height, Weight, BMI Height: 5'11.00" Weight: 450lbs. oz. 204.153434bi; 64.00 BMI Method:Stated General Appearance: No Apparent Distress, WD/WN, Obese, Other (VERY NON- [place]AL[place]. LAYING ON LEFT SIDE. DOES NOT APPEAR ILL OR TO BE IN ANY DISCOMFORT OR DISTRESS OR LETHARGIC. ) HEENT: PERRL/EOMI Neck: Normal Inspection Respiratory: Normal Breath Sounds, No Accessory Muscle Use, No Respiratory Distress, Other (MILD CHEST WALL TENDERNESS--MID CHEST AND LEFT UPPER CHEST) Cardiovascular: Regular Rate, Rhythm, No Edema, No Murmur, Normal Peripheral Pulses Gastrointestinal: Non Tender Back: Normal Inspection Extremity: Normal Inspection Neurologic/Psychiatric: Alert, Oriented x3, No Motor/Sensory Deficits, Normal M ood/Affect, weight count operator II-XII Norm as Tested; No Abnormal Cerebellar Tests Skin: Normal Color, Warm/Dry Progress/Results/Core Measures Suspected Sepsis SIRS Temperature: Pulse: 62 Respiratory Rate: 20 Laboratory Tests 02/24/22 21:40: White Blood Count 5.9 Blood Pressure 134 /84 Mean: 101 Laboratory Tests 02/24/22 21:40: Creatinine 0.95, Platelet Count 183, Total Bilirubin 0.7 Results/Orders Lab Results Laboratory Tests Test 02/24/22 20:39 02/24/22 21:40 02/24/22 22:02 02/24/22 22:09 Range/Units Influenza Type A (RT-PCR) Not Detected Not Detecte Influenza Type B (RT-PCR) Not Detected Not Detecte SARS-CoV-2 RNA (RT-PCR) Not Detected Not Detecte White Blood Count 5.9 4.3-11.0 10^3/uL Red Blood Count 5.47 4.30-5.52 10^6/uL Hemoglobin 15.0 13.3-17.7 g/dL Hematocrit 46 40-54 % Mean Corpuscular Volume 84 80-99 fL Mean Corpuscular Hemoglobin 27 25-34 pg Mean Corpuscular Hemoglobin Concent 33 32-36 g/dL Red Cell Distribution Width 13.6 10.0-14.5 % Platelet Count 183 130-400 10^3/uL Mean Platelet Volume 13.1 H 9.0-12.2 fL Immature Granulocyte % (Auto) 0 % Neutrophils (%) (Auto) 67 42-75 % Lymphocytes (%) (Auto) 23 12-44 % Monocytes (%) (Auto) 7 0-12 % Eosinophils (%) (Auto) 2 0-10 % Basophils (%) (Auto) 1 0-10 % Neutrophils # (Auto) 3.9 1.8-7.8 10^3/uL Lymphocytes # (Auto) 1.4 1.0-4.0 10^3/uL Monocytes # (Auto) 0.4 0.0-1.0 10^3/uL Eosinophils # (Auto) 0.1 0.0-0.3 10^3/uL Basophils # (Auto) 0.1 0.0-0.1 10^3/uL Immature Granulocyte # (Auto) 0.0 0.0-0.1 10^3/uL Percent Immature Platelet Fraction 14.3 H 0.0-7.6 % Sodium Level 144 135-145 MMOL/L Potassium Level 4.1 3.6-5.0 MMOL/L Chloride Level 108 H 98-107 MMOL/L Carbon Dioxide Level 23 21-32 MMOL/L Anion Gap 13 5-14 MMOL/L Blood Urea Nitrogen 17 7-18 MG/DL Creatinine 0.95 0.60-1.30 MG/DL Estimat Glomerular Filtration Rate 110 BUN/Creatinine Ratio 18 Glucose Level 103 70-105 MG/DL Calcium Level 9.2 8.5-10.1 MG/DL Corrected Calcium 9.1 8.5-10.1 MG/DL Magnesium Level 2.1 1.6-2.4 MG/DL Total Bilirubin 0.7 0.1-1.0 MG/DL Aspartate Amino Transf (AST/SGOT) 20 5-34 U/L Alanine Aminotransferase (ALT/SGPT) 38 0-55 U/L Alkaline Phosphatase 63 40-136 U/L Total Creatine Kinase 127 30-200 U/L Creatine Kinase MB 0.7 <6.6 NG/ML Troponin I < 0.028 <0.028 NG/ML B-Type Natriuretic Peptide 13.2 <100.0 PG/ML Total Protein 7.4 6.4-8.2 GM/DL Albumin 4.1 3.2-4.5 GM/DL Thyroid Stimulating Hormone (TSH) 1.02 0.35-4.94 UIU/ML Monoscreen NEGATIVE NEGATIVE Urine Color YELLOW Urine Clarity CLEAR Urine pH 5.5 5-9 Urine Specific [place] >=1.030 1.016-1.022 Urine Protein NEGATIVE NEGATIVE Urine Glucose (UA) NEGATIVE NEGATIVE Urine Ketones NEGATIVE NEGATIVE Urine Nitrite NEGATIVE NEGATIVE Urine Bilirubin NEGATIVE NEGATIVE Urine Urobilinogen 0.2 < = 1.0 MG/DL Urine Leukocyte Esterase NEGATIVE NEGATIVE Urine RBC (Auto) NEGATIVE NEGATIVE Urine RBC NONE /HPF Urine WBC 0-2 /HPF Urine Squamous Epithelial Cells NONE /HPF Urine Renal Epithelial Cells NONE /HPF Urine Crystals NONE /LPF Urine Bacteria NEGATIVE /HPF Urine Casts NONE /LPF Urine Mucus LARGE H /LPF Urine Culture Indicated NO Urine Opiates Screen NEGATIVE NEGATIVE Urine Oxycodone Screen NEGATIVE NEGATIVE Urine Methadone Screen NEGATIVE NEGATIVE Urine Propoxyphene Screen NEGATIVE NEGATIVE Urine Barbiturates Screen NEGATIVE NEGATIVE Ur Tricyclic Antidepressants Screen NEGATIVE NEGATIVE Urine Phencyclidine Screen NEGATIVE NEGATIVE Urine Amphetamines Screen NEGATIVE NEGATIVE Urine Methamphetamines Screen NEGATIVE NEGATIVE Urine Benzodiazepines Screen NEGATIVE NEGATIVE Urine Cocaine Screen NEGATIVE NEGATIVE Urine Cannabinoids Screen NEGATIVE NEGATIVE My Orders Orders - NABIL LEBLANC DO Covid 19 Inhouse Test (02/24/22 20:39) Influenza A And B By Pcr (02/24/22 20:39) Isolation Central Supply Req (02/24/22 20:39) Ed Iv/Invasive Line Start (02/24/22 21:16) Ekg Tracing (02/24/22 21:16) Monitor-Rhythm Ecg Trace Only (02/24/22 21:16) Bnp Vick (02/24/22 21:16) Cbc With Automated Diff (02/24/22 21:16) Comprehensive Metabolic Panel (02/24/22 21:16) Creatine Kinase (02/24/22 21:16) Creatine Kinase Mb (02/24/22 21:16) Drug Screen Stat (Urine) (02/24/22 21:16) Magnesium (02/24/22 21:16) Monotest (02/24/22 21:16) Thyroid Stimulating Hormone (02/24/22 21:16) Ua Culture If Indicated (02/24/22 21:16) Troponin I Cuming (02/24/22 21:16) Chest 1 View, Ap/Pa Only (02/24/22 21:16) Vital Signs/I&O 02/24/22 02/24/22 19:30 19:30 Temp 36.8 Pulse 62 Resp 20 B/P (MAP) 134/84 (101) Pulse Ox 97 O2 Delivery Room Air Room Air Capillary Refill : Less Than 3 Seconds Blood Pressure Mean: 101 Progress Note : Progress Note PPE WORN COVID, FLU AND MONO TESTING DONE AND ALL ARE NEGATIVE PT HAD NO COMPLAINTS DURING ER STAY VITALS STABLE UNEVENTFUL ER STAY ECG Initial ECG Impression Date: Feb 24, 2022 Initial ECG Impression Time: 21:51 Initial ECG Rate: 54 Initial ECG Rhythm: [facility] Comments CXR--PER RADIOLOGIST REPORT AT 2141 FINDINGS: The lung volumes are normal. No focal consolidation is seen. No large pleural effusion or pneumothorax is seen. The cardiomediastinal silhouette is normal in size and contour. No acute osseous abnormality is seen. IMPRESSION: 1. No acute pleuroparenchymal process. Reviewed: Reviewed by Me Departure Impression Primary Impression: Fatigue Additional Impression: Chest wall pain Disposition: 01 HOME, SELF-CARE Condition: Stable Departure-Patient Inst. Decision time for Depature: 22:58 Referrals: [facility] (PCP/Family) Primary Care Physician Patient Instructions: Fatigue (DC) Add. Discharge Instructions: FOLLOW UP WITH [facility] IN A FEW DAYS IF SYMPTOMS PERSIST All discharge instructions reviewed with patient and/or family. Voiced understanding. NABIL LEBLANC DO Feb 24, 2022 21:33
--- NOTE | 2022-02-24 21:39 | Diagnostic Imaging Report ---
EXAMINATION: Chest 1 view HISTORY: Chest pain. Fatigue. COMPARISON: 01/19/2022. FINDINGS: The lung volumes are normal. No focal consolidation is seen. No large pleural effusion or pneumothorax is seen. The cardiomediastinal silhouette is normal in size and contour. No acute osseous abnormality is seen. IMPRESSION: 1. No acute pleuroparenchymal process. Dictated by: Dictated on workstation # [id number]
[2022-02-24 21:56] LABS: BASOPHILS # (AUTO) 0.1 10^3/uL (0.0-0.1); NEUTROPHILS # (AUTO) 3.9 10^3/uL (1.8-7.8)
[2022-02-24 21:58] LABS: BASOPHILS % (AUTO) 1 % (0-10); EOSINOPHILS # (AUTO) 0.1 10^3/uL (0.0-0.3); EOSINOPHILS % (AUTO) 2 % (0-10); HEMATOCRIT 46 % (40-54); LYMPHOCYTES # (AUTO) 1.4 10^3/uL (1.0-4.0); LYMPHOCYTES % (AUTO) 23 % (12-44); MEAN CORPUSCULAR HEMOGLOBIN 27 pg (25-34); MEAN CORPUSCULAR HGB CONC 33 g/dL (32-36); MEAN CORPUSCULAR VOLUME 84 fL (80-99); MEAN PLATELET VOLUME 13.1 fL (9.0-12.2); MONOCYTES # (AUTO) 0.4 10^3/uL (0.0-1.0); MONOCYTES % (AUTO) 7 % (0-12); NEUTROPHILS % (AUTO) 67 % (42-75); PLATELET COUNT 183 10^3/uL (130-400); WHITE BLOOD COUNT 5.9 10^3/uL (4.3-11.0)
[2022-02-24 22:13] LABS: ALANINE AMINOTRANSFERASE 38 U/L (0-55); ALBUMIN 4.1 GM/DL (3.2-4.5); ALKALINE PHOSPHATASE 63 U/L (40-136); CALCIUM 9.2 MG/DL (8.5-10.1); CHLORIDE 108 MMOL/L (98-107); CREATINE KINASE 127 U/L (30-200); CREATININE SERUM 0.95 MG/DL (0.60-1.30); GFR ESTIMATED 110; POTASSIUM 4.1 MMOL/L (3.6-5.0); SODIUM 144 MMOL/L (135-145); TOTAL PROTEIN 7.4 GM/DL (6.4-8.2)
[2022-02-24 22:21] LABS: BILIRUBIN,URINE NEGATIVE (NEGATIVE); CLARITY,URINE CLEAR; COLOR,URINE YELLOW; GLUCOSE, URINE (UA) NEGATIVE (NEGATIVE); KETONES,URINE NEGATIVE (NEGATIVE); LEUKOCYTE ESTERASE ,URINE NEGATIVE (NEGATIVE); NITRITE,URINE NEGATIVE (NEGATIVE); PH,URINE 5.5 (5-9); PROTEIN,URINE NEGATIVE (NEGATIVE)
[2022-02-24 22:33] LABS: CREATINE KINASE MB 0.7 NG/ML (<6.6)
[2022-02-24 22:50] LABS: BILIRUBIN,TOTAL 0.7 MG/DL (0.1-1.0); BUN/CREATININE RATIO 18; CARBON DIOXIDE 23 MMOL/L (21-32); GLUCOSE 103 MG/DL (70-105); MAGNESIUM 2.1 MG/DL (1.6-2.4)
[2022-02-24 22:53] LABS: AMPHETAMINE SCREEN, URINE NEGATIVE (NEGATIVE); BARBITURATE SCREEN URINE NEGATIVE (NEGATIVE); BENZODIAZEPINES SCREEN URINE NEGATIVE (NEGATIVE); CANNABINOID SCREEN, URINE NEGATIVE (NEGATIVE); COCAINE SCREEN URINE NEGATIVE (NEGATIVE); METHADONE STAT NEGATIVE (NEGATIVE); OPIATE SCREEN URINE NEGATIVE (NEGATIVE); OXYCODONE STAT NEGATIVE (NEGATIVE); PROPOXYPHENE STAT NEGATIVE (NEGATIVE); TRICYCLIC ANTIDEPRESSANTS SCRE NEGATIVE (NEGATIVE)
[2022-02-24 22:54] LABS: BACTERIA,URINE NEGATIVE /HPF; WBC,URINE 0-2 /HPF
== END 2022-02-24 23:09 | disposition home or self-care (01) ==
LOC: EDUNIT# 19:25 → ER 19:27
DX: R07.89 Other chest pain (principal); R53.83 Other fatigue; E66.01 Morbid (severe) obesity due to excess calories; Z68.44 Body mass index [BMI] 60.0-69.9, adult; Z20.822 Contact with and (suspected) exposure to COVID-19
CPT/HCPCS: 36415; 71045; 80053; 80306; 81000; 82550; 82553; 83735; 83880; 84443; 84484; 85025; 86308; 87636; 93005; 93041

== ENCOUNTER 2022-03-16 17:44 | Emergency (ER) | payer OTHER ==
[2022-03-16] MEDS ORDERED: ASPIRIN 81 MG CHEW (CHILDREN'S ASA) PO ONE (18:00)
[2022-03-16 18:08] LABS: BASOPHILS % (AUTO) 1 % (0-10); EOSINOPHILS # (AUTO) 0.1 10^3/uL (0.0-0.3); EOSINOPHILS % (AUTO) 2 % (0-10); HEMATOCRIT 44 % (40-54); HEMOGLOBIN 14.4 g/dL (13.3-17.7); LYMPHOCYTES # (AUTO) 1.4 10^3/uL (1.0-4.0); LYMPHOCYTES % (AUTO) 24 % (12-44); MEAN CORPUSCULAR HEMOGLOBIN 27 pg (25-34); MEAN CORPUSCULAR HGB CONC 33 g/dL (32-36); MEAN CORPUSCULAR VOLUME 84 fL (80-99); MONOCYTES # (AUTO) 0.3 10^3/uL (0.0-1.0); MONOCYTES % (AUTO) 5 % (0-12); NEUTROPHILS # (AUTO) 4.2 10^3/uL (1.8-7.8); NEUTROPHILS % (AUTO) 69 % (42-75); PLATELET COUNT 195 10^3/uL (130-400)
[2022-03-16] MEDS ORDERED: KETOROLAC 30 MG/ML VIAL IVP ONE (18:15)
[2022-03-16 18:24] LABS: ALBUMIN 4.2 GM/DL (3.2-4.5)
[2022-03-16 18:25] LABS: PROTHROMBIN TIME PATIENT 13.6 SEC (12.2-14.7)
[2022-03-16 18:26] LABS: CALCIUM 9.3 MG/DL (8.5-10.1)
[2022-03-16 18:27] LABS: TOTAL PROTEIN 7.2 GM/DL (6.4-8.2)
[2022-03-16 18:29] LABS: BILIRUBIN,TOTAL 0.7 MG/DL (0.1-1.0)
[2022-03-16 18:31] LABS: CREATININE SERUM 0.92 MG/DL (0.60-1.30)
[2022-03-16 18:33] LABS: MAGNESIUM 2.1 MG/DL (1.6-2.4)
[2022-03-16 18:41] LABS: CREATINE KINASE MB 0.9 NG/ML (<6.6)
--- NOTE | 2022-03-16 18:41 | Diagnostic Imaging Report ---
CHEST 1 VIEW, AP/PA ONLY Indication: Chest pain. Comparison: 02/24/2022 Findings: No focal airspace disease in the visualized lungs. No pleural effusion or pneumothorax. Normal cardiomediastinal silhouette. Impression: 1. No acute cardiopulmonary process by portable radiography. Dictated by: Dictated on workstation # [id number]
--- NOTE | 2022-03-16 18:50 | ED Chest Pain ---
General Chief Complaint: Chest Pain Stated Complaint: CHEST PRESSURE/WEKNESS Nursing Triage Note: PT AMB TO RM 8 WITH C/O CP AND SOB X1 HOUR. PT STATES HE WAS TAKING A WALK OUTSIDE WHEN IT STARTED HAPPENING. 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 STATES HE FEELS BETTER, BUT STILL FEELS WEAK AND TIRED. HAD COUGH AND CONGESTION 1-2 WEEKS AGO NO FEVER NO SWELLING IN LEGS/FEET OR PAIN IN CALVES NO PALPITATIONS NO SYNCOPE NO GI SYMPTOMS PT HAS HAD MULTIPLE VISITS FOR THIS EXACT SAME COMPLAINT, AND WORK-UPS HAVE ALL BEEN NEGATIVE, INCLUDING A CARDIAC CATH IN 2019 PT DOES HAVE HTN, AND IS FOLLOWED BY DR. AVINA. HE HAS NOT SEEN HIM RECENTLY. HAS AN APPOINTMENT IN MARCH HE DOES HAVE A ROUTINE APPOINTMENT WITH RON [facility] AT [facility] ON Thursday03/18/22. PCP: [facility] [place] MATERIALS ENGINEER: DR. AVINA Allergies and Home Medications Allergies Coded Allergies: No Known Drug Allergies (Unverified , 09/21/19) Patient Home Medication List Atorvastatin Calcium (Lipitor) 10 Mg Tablet, 10 MG PO DAILY Prescribed by: SARAY AVINA on 09/22/19 0821 Cyclobenzaprine HCl (Cyclobenzaprine HCl) 10 Mg Tablet, 10 MG PO Q8H PRN for SPASMS Prescribed by: EMMETT RANGEL on 09/03/21 1239 Cyclobenzaprine HCl (Cyclobenzaprine HCl) 10 Mg Tablet, 10 MG PO Q8H PRN for SPASMS Prescribed by: NABIL LEBLANC on 12/13/212037 Meloxicam (Meloxicam) 15 Mg Tablet, 15 MG PO DAILY Prescribed by: NABIL LEBLANC on 12/13/212037 Ondansetron (Ondansetron Odt) 8 Mg Tab.rapdis, 8 MG PO Q8H PRN for nausea Prescribed by: REGINALDO MONZON on 03/27/21 1226 Pantoprazole Sodium (Protonix) 40 Mg Tablet., 40 MG PO DAILY Prescribed by: JOE DAVE on 05/30/21 181 Sertraline HCl (Sertraline HCl) 25 Mg Tablet, 25 MG PO DAILY Prescribed by: GUIDO GIRALDO on 09/06/20 1447 Past Mlumfwj-Mmtixv-Icgadw Hx Patient Social History Tobacco Use?: No Use of E-Cig and/or Vaping dev: No Substance use?: No Alcohol Use?: Yes Alcohol Frequency: Rarely Pt feels they are or have been: No Immunizations Up To Date Tetanus Booster (TDap): Unknown Influenza Vaccine Up-to-Date: No; Not Current First/Initial COVID19 Vaccinat: 02/18 Second COVID19 Vaccination Jim: 02/18 Third COVID19 Vaccination Date: 02/18 Seasonal Allergies Seasonal Allergies: No Past Medical History Surgery/Hospitalization HX: CAD, HTN, HLD Surgeries: Yes (CARDIAC CATH 09/22/19-NO INTERVENTION ) Cardiac Respiratory: Yes Pneumonia Currently Using CPAP: No Currently Using BIPAP: No Cardiac: Yes (V-FIB DURING CARDIAC CATH. CHRONIC CHEST PAIN COMPLAINTS) High Cholesterol, Hypertension Neurological: Yes Headaches /Migraines Reproductive Disorders: No Genitourinary: Yes Kidney Stones Gastrointestinal: Yes Chronic Diarrhea, Irritable Bowel Musculoskeletal: No Endocrine: Yes (MORBID OBESITY) HEENT: Yes (POOR DENTITION) Cancer: No Psychosocial: Yes Anxiety Integumentary: No Blood Disorders: No Adverse Reaction/Blood Tranf: No Family Medical History CARDIAC CATH 09/22/[address] 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 Dominant right coronary artery with no obstructive disease, LAD is from the left coronary cusp with no obstructive disease 3. Normal left ventricular size, EF 50 percent 4. Normal aortic root DISCUSSION AND RECOMMENDATION: Patient had ventricular fibrillation during the initial angiogram yesterday, currently tolerated the procedure well. I will start him on Lipitor. Arrange for follow-up as an outpatient Physical Exam Vital Signs Vital Signs - First Documented 03/16/22 17:50 Temp 36.1 Pulse 67 Resp 20 B/P (MAP) 155/98 (117) Capillary Refill : Height, Weight, BMI Height: 5'11.00" Weight: 450lbs. oz. 204.594116gk; 64.00 BMI Method:Stated Progress/Results/Core Measures Results/Orders Lab Results Laboratory Tests Test 03/16/22 18:00 03/16/22 18:08 03/16/22 19:30 Range/Units White Blood Count 6.0 4.3-11.0 10^3/uL Red Blood Count 5.29 4.30-5.52 10^6/uL Hemoglobin 14.4 13.3-17.7 g/dL Hematocrit 44 40-54 % Mean Corpuscular Volume 84 80-99 fL Mean Corpuscular Hemoglobin 27 25-34 pg Mean Corpuscular Hemoglobin Concent 33 32-36 g/dL Red Cell Distribution Width 13.6 10.0-14.5 % Platelet Count 195 130-400 10^3/uL Mean Platelet Volume 13.0 H 9.0-12.2 fL Immature Granulocyte % (Auto) 0 % Neutrophils (%) (Auto) 69 42-75 % Lymphocytes (%) (Auto) 24 12-44 % Monocytes (%) (Auto) 5 0-12 % Eosinophils (%) (Auto) 2 0-10 % Basophils (%) (Auto) 1 0-10 % Neutrophils # (Auto) 4.2 1.8-7.8 10^3/uL Lymphocytes # (Auto) 1.4 1.0-4.0 10^3/uL Monocytes # (Auto) 0.3 0.0-1.0 10^3/uL Eosinophils # (Auto) 0.1 0.0-0.3 10^3/uL Basophils # (Auto) 0.0 0.0-0.1 10^3/uL Immature Granulocyte # (Auto) 0.0 0.0-0.1 10^3/uL Prothrombin Time 13.6 12.2-14.7 SEC INR Comment 1.0 0.8-1.4 Activated Partial Thromboplast Time 28 24-35 SEC D-Dimer < 0.27 0.00-0.49 UG/ML Sodium Level 144 135-145 MMOL/L Potassium Level 4.0 3.6-5.0 MMOL/L Chloride Level 109 H 98-107 MMOL/L Carbon Dioxide Level 25 21-32 MMOL/L Anion Gap 10 5-14 MMOL/L Blood Urea Nitrogen 10 7-18 MG/DL Creatinine 0.92 0.60-1.30 MG/DL Estimat Glomerular Filtration Rate 114 BUN/Creatinine Ratio 11 Glucose Level 104 70-105 MG/DL Calcium Level 9.3 8.5-10.1 MG/DL Corrected Calcium 9.1 8.5-10.1 MG/DL Magnesium Level 2.1 1.6-2.4 MG/DL Total Bilirubin 0.7 0.1-1.0 MG/DL Aspartate Amino Transf (AST/SGOT) 24 5-34 U/L Alanine Aminotransferase (ALT/SGPT) 50 0-55 U/L Alkaline Phosphatase 64 40-136 U/L Total Creatine Kinase 184 30-200 U/L Creatine Kinase MB 0.9 <6.6 NG/ML Myoglobin 50.7 10.0-92.0 NG/ML Troponin I < 0.028 <0.028 NG/ML B-Type Natriuretic Peptide 16.6 <100.0 PG/ML Total Protein 7.2 6.4-8.2 GM/DL Albumin 4.2 3.2-4.5 GM/DL Amylase Level 32 25-125 U/L Lipase 20 8-78 U/L Influenza Type A (RT-PCR) Not Detected Not Detecte Influenza Type B (RT-PCR) Not Detected Not Detecte SARS-CoV-2 RNA (RT-PCR) Not Detected Not Detecte Urine Opiates Screen NEGATIVE NEGATIVE Urine Oxycodone Screen NEGATIVE NEGATIVE Urine Methadone Screen NEGATIVE NEGATIVE Urine Propoxyphene Screen NEGATIVE NEGATIVE Urine Barbiturates Screen NEGATIVE NEGATIVE Ur Tricyclic Antidepressants Screen NEGATIVE NEGATIVE Urine Phencyclidine Screen NEGATIVE NEGATIVE Urine Amphetamines Screen NEGATIVE NEGATIVE Urine Methamphetamines Screen NEGATIVE NEGATIVE Urine Benzodiazepines Screen NEGATIVE NEGATIVE Urine Cocaine Screen NEGATIVE NEGATIVE Urine Cannabinoids Screen NEGATIVE NEGATIVE My Orders Orders - NABIL LEBLANC DO Ed Iv/Invasive Line Start (03/16/22 17:56) Ekg Tracing (03/16/22 17:56) O2 (03/16/22 17:56) Monitor-Rhythm Ecg Trace Only (03/16/22 17:56) Cbc With Automated Diff (03/16/22 17:56) Magnesium (03/16/22 17:56) Chest 1 View, Ap/Pa Only (03/16/22 17:56) Ekg Tracing (03/16/22 17:56) Comprehensive Metabolic Panel (03/16/22 17:56) Myoglobin Serum (03/16/22 17:56) Protime With Inr (03/16/22 17:56) Partial Thromboplastin Time (03/16/22 17:56) O2 (03/16/22 17:56) Ed Iv/Invasive Line Start (03/16/22 17:56) Creatine Kinase (03/16/22 17:56) Creatine Kinase Mb (03/16/22 17:56) Lipase (03/16/22 17:56) Amylase (03/16/22 17:56) Bnp Vick (03/16/22 17:56) Fibrin Degradation Products (03/16/22 17:56) Troponin I [place] (03/16/22 17:56) Aspirin Chewable Tablet (Baby Aspirin Ch (03/16/22 18:00) Covid 19 Inhouse Test (03/16/22 17:56) Drug Screen Stat (Urine) (03/16/22 17:56) Influenza A And B By Pcr (03/16/22 17:56) Isolation Central Supply Req (03/16/22 17:56) Ketorolac Injection (Toradol Injection) (03/16/22 18:15) Medications Given in ED Current Medications Medications Dose Ordered Sig/Vahid Route Start Time Stop Time Status Last Admin Dose Admin Aspirin 324 mg ONCE ONCE PO 03/16/22 18:00 03/16/22 18:01 DC 03/16/22 18:16 324 MG Ketorolac Tromethamine 30 mg ONCE ONCE IVP 03/16/22 18:15 03/16/22 18:16 DC 03/16/22 18:16 30 MG Vital Signs/I&O 03/16/22 03/16/22 17:50 19:37 Temp 36.1 36.1 Pulse 67 62 Resp 20 20 B/P (MAP) 155/98 (117) 149/112 Blood Pressure Mean: 117 Progress Progress Note : Progress Note GIVEN ASPIRIN AND TORADOL WITH COMPLETE RELIEF OF SYMPTOMS UNEVENTFUL ER STAY REVIEWED TEST RESULTS, NEED FOR FOLLOW UP AND RETURN PRECAUTIONS DISCUSSED WITH PT REVIEWED PRIOR RECORDS, INCLUDING PREVIOUS ER VISITS, OUTPATIENT CATH REPORT FROM 2019 Diagnostic Imaging Comments CXR--PER RADIOLOGIST REPORT AT 1850 Findings: No focal airspace disease in the visualized lungs. No pleural effusion or pneumothorax. Normal cardiomediastinal silhouette. Impression: 1. No acute cardiopulmonary process by portable radiography. Reviewed: Reviewed by Me Departure Impression Primary Impression: Chest wall pain Disposition: HOME, SELF-CARE Condition: Improved Departure-Patient Inst. Decision time for Depature: 19:25 Referrals: [facility] (PCP/Family) Primary Care Physician Patient Instructions: Costochondritis, Chest Pain That Is Not Caused by the Heart (DC) Add. Discharge Instructions: HOME, REST TAKE TYLENOL 1 GRAM PLUS MOTRIN 8000 MG 4 TIMES A DAY NEEDED FOR PAIN TAKE 81 MG ASPIRIN DAILY CONTINUE YOUR REGULAR MEDICATIONS PRESCRIBED FOLLOW UP WITH YOUR [facility] OR DR. AVINA THIS WEEK FOR FURTHER CARE--CALL IN THE MORNING TO SCHEDULE APPOINTMENT All discharge instructions reviewed with patient and/or family. Voiced understanding. NABIL LEBLANC DO Mar 16, 2022 18:50
[2022-03-16 19:37] VITALS: BP 149/112
[2022-03-16 19:49] LABS: AMPHETAMINE SCREEN, URINE NEGATIVE (NEGATIVE); BARBITURATE SCREEN URINE NEGATIVE (NEGATIVE); BENZODIAZEPINES SCREEN URINE NEGATIVE (NEGATIVE); CANNABINOID SCREEN, URINE NEGATIVE (NEGATIVE); COCAINE SCREEN URINE NEGATIVE (NEGATIVE); METHADONE STAT NEGATIVE (NEGATIVE); OPIATE SCREEN URINE NEGATIVE (NEGATIVE); OXYCODONE STAT NEGATIVE (NEGATIVE); PROPOXYPHENE STAT NEGATIVE (NEGATIVE); TRICYCLIC ANTIDEPRESSANTS SCRE NEGATIVE (NEGATIVE)
== END 2022-03-16 19:39 | disposition home or self-care (01) ==
LOC: EDUNIT# 17:44 → ER 17:46
DX: R07.89 Other chest pain (principal); E66.01 Morbid (severe) obesity due to excess calories; Z68.44 Body mass index [BMI] 60.0-69.9, adult; Z98.61 Coronary angioplasty status; Z20.822 Contact with and (suspected) exposure to COVID-19
CPT/HCPCS: 36415; 71045; 80053; 80306; 82150; 82550; 82553; 83690; 83735; 83874; 83880; 84484; 85025; 85379; 85610; 85730; 87636; 93005; 93041

== ENCOUNTER 2022-06-26 17:58 | Emergency (ER) | payer OTHER ==
[~2022-06-26] VITALS: Ht 182 cm; Wt 195.0 kg
[2022-06-26 18:41] LABS: HEMATOCRIT 43 % (40-54); MEAN CORPUSCULAR VOLUME 84 fL (80-99)
[2022-06-26 18:42] LABS: BASOPHILS % (AUTO) 1 % (0-10); EOSINOPHILS # (AUTO) 0.2 10^3/uL (0.0-0.3); EOSINOPHILS % (AUTO) 3 % (0-10); HEMOGLOBIN 14.3 g/dL (13.3-17.7); LYMPHOCYTES # (AUTO) 1.6 10^3/uL (1.0-4.0); LYMPHOCYTES % (AUTO) 30 % (12-44); MEAN CORPUSCULAR HEMOGLOBIN 28 pg (25-34); MEAN CORPUSCULAR HGB CONC 33 g/dL (32-36); MEAN PLATELET VOLUME 13.5 fL (9.0-12.2); MONOCYTES # (AUTO) 0.4 10^3/uL (0.0-1.0); MONOCYTES % (AUTO) 8 % (0-12); NEUTROPHILS % (AUTO) 58 % (42-75); PLATELET COUNT 183 10^3/uL (130-400); WHITE BLOOD COUNT 5.1 10^3/uL (4.3-11.0)
[2022-06-26 18:45] LABS: PROTHROMBIN TIME PATIENT 13.8 SEC (12.2-14.7); SMEAR SCAN COMMENT YES
[2022-06-26 18:48] LABS: ALBUMIN 4.2 GM/DL (3.2-4.5)
[2022-06-26 18:49] LABS: POTASSIUM 3.6 MMOL/L (3.6-5.0)
[2022-06-26 18:50] LABS: CALCIUM 8.9 MG/DL (8.5-10.1)
[2022-06-26 18:51] LABS: TOTAL PROTEIN 7.3 GM/DL (6.4-8.2)
[2022-06-26 18:53] LABS: BILIRUBIN,TOTAL 0.5 MG/DL (0.1-1.0)
[2022-06-26 18:55] LABS: CREATININE SERUM 0.9 MG/DL (0.60-1.30)
[2022-06-26 18:57] LABS: MAGNESIUM 2.2 MG/DL (1.6-2.4)
--- NOTE | 2022-06-26 18:59 | Diagnostic Imaging Report ---
EXAMINATION: Chest 1 view HISTORY: Chest pain COMPARISON: 03/16/2022 FINDINGS: Heart size and pulmonary vasculature are normal. The lungs are clear without consolidation, pleural effusion, or pneumothorax. The osseous structures are intact. IMPRESSION: 1. No acute radiographic abnormality in the chest. Dictated by: Dictated on workstation # [id number]
[2022-06-26 19:05] LABS: CREATINE KINASE MB 1.1 NG/ML (<6.6)
--- NOTE | 2022-06-26 19:15 | ED Cardiac General ---
History of Present Illness General Chief Complaint: Chest Pain Stated Complaint: PALPITATIONS Nursing Triage Note: PT STATES HAVING HEART PALPATATIONS SINCE THURSDAY, NON OBSTRUCTIVE CAD DX ABOUT 4 YRS AGO Source: patient Exam Limitations: no limitations History of Present Illness Date Seen by Provider: Jun 26, 2022 Time Seen by Provider: 18:05 Initial Comments This is a 31-year-old male with history of HLD, HTN, and CAD who presented to the ER with complaints of heart palpitations and chest discomfort since Thursday morning 06/21/22. States that he has intermittent episodes where his heart will race and feels "like Jell-O". He woke Thursday06/22/22 morning feeling normal and did not have any more episodes until this morning around 0900. Today's episode lasted for a few minutes and would go away and then returned intermittently. No alleviating or aggravating features. He waited until his family was off work before coming to the emergency department to be evaluated. States that he does have a history of hypertension and used to be on Lisinopril in the past, this was discontinued after he had achieved good blood pressure control. No fever, chills, nausea, vomiting, diarrhea, abdominal pain. 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) Allergies and Home Medications Allergies Coded Allergies: No Known Drug Allergies (Unverified , 09/21/19) Patient Home Medication List Home Medication List Reviewed: Yes Atorvastatin Calcium (Lipitor) 10 Mg Tablet, 10 MG PO DAILY Prescribed by: SARAY FULTON on 09/22/19 0821 Cyclobenzaprine HCl (Cyclobenzaprine HCl) 10 Mg Tablet, 10 MG PO Q8H PRN for SPASMS Prescribed by: EMMETT RANGEL on 09/03/21 1239 Cyclobenzaprine HCl (Cyclobenzaprine HCl) 10 Mg Tablet, 10 MG PO Q8H PRN for SPASMS Prescribed by: NABIL LEBLANC on 12/13/212037 Meloxicam (Meloxicam) 15 Mg Tablet, 15 MG PO DAILY Prescribed by: NABIL LEBLANC on 12/13/212037 Ondansetron (Ondansetron Odt) 8 Mg Tab.rapdis, 8 MG PO Q8H PRN for nausea Prescribed by: REGINALDO MONZON on 03/27/21 1226 Pantoprazole Sodium (Protonix) 40 Mg Tablet., 40 MG PO DAILY Prescribed by: JOE DAVE on 05/30/211812 Sertraline HCl (Sertraline HCl) 25 Mg Tablet, 25 MG PO DAILY Prescribed by: GUIDO GIRALDO on 09/06/20 1447 Review of Systems Review of Systems Constitutional: see HPI Past Ruwoysg-Vjziih-Bvkbtk Hx Patient Social History Tobacco Use?: No Substance use?: No Alcohol Use?: No Immunizations Up To Date Tetanus Booster (TDap): Unknown First/Initial COVID19 Vaccinat: 02/18 Second COVID19 Vaccination Jim: 02/18 Third COVID19 Vaccination Date: 02/18 Seasonal Allergies Seasonal Allergies: No Past Medical History Surgery/Hospitalization HX: NON OBSTRUCTIVE CAD DX ABOUT 4 YRS AGO, HTN, HLD Surgeries: Yes (CARDIAC CATH 09/22/19-NO INTERVENTION ) Cardiac Respiratory: Yes Pneumonia Currently Using CPAP: No Currently Using BIPAP: No Cardiac: Yes (V-FIB DURING CARDIAC CATH. CHRONIC CHEST PAIN COMPLAINTS) High Cholesterol, Hypertension Neurological: Yes Headaches /Migraines Reproductive Disorders: No Genitourinary: Yes Kidney Stones Gastrointestinal: Yes Chronic Diarrhea, Irritable Bowel Musculoskeletal: No Endocrine: Yes (MORBID OBESITY) HEENT: Yes (POOR DENTITION) Cancer: No Psychosocial: Yes Anxiety Integumentary: No Blood Disorders: No Adverse Reaction/Blood Tranf: No Family Medical History CARDIAC CATH 09/22/[address] 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 Dominant right coronary artery with no obstructive disease, LAD is from the left coronary cusp with no obstructive disease 3. Normal left ventricular size, EF 50 percent 4. Normal aortic root DISCUSSION AND RECOMMENDATION: Patient had ventricular fibrillation during the initial angiogram yesterday, currently tolerated the procedure well. I will start him on Lipitor. Arrange for follow-up as an outpatient Physical Exam Vital Signs Vital Signs - First Documented 06/26/22 18:09 Temp 36.3 Pulse 70 Resp 20 B/P (MAP) 178/98 (124) Pulse Ox 97 O2 Delivery Room Air Capillary Refill : Less Than 3 Seconds Height, Weight, BMI Height: 5'11.00" Weight: 450lbs. oz. 204.289959kx; 58.00 BMI Method:Stated General Appearance: No Apparent Distress, WD/WN, Obese HEENT: PERRL/EOMI, Normal ENT Inspection, Pharynx Normal, Moist Mucous Membranes Neck: Full Range of Motion, Normal Inspection, Supple Respiratory: Chest Non Tender, Lungs Clear, Normal Breath Sounds, No Accessory Muscle Use, No Respiratory Distress Cardiovascular: Regular Rate, Rhythm, No Edema, No Gallop, No Murmur, Normal Peripheral Pulses; No Extra Beats, No Friction Rub Gastrointestinal: Normal Bowel Sounds, Soft Extremity: Normal Capillary Refill, Normal Inspection, Normal Range of Motion, No Pedal Edema Neurologic/Psychiatric: Alert, Oriented x3, No Motor/Sensory Deficits, 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, splunk architect II-XII Norm as Tested (grossly intact ) Skin: Normal Color, Warm/Dry; No Diaphoresis, No Erythema Progress/Results/Core Measures Results/Orders Lab Results Laboratory Tests Test 06/26/22 18:22 Range/Units White Blood Count 5.1 4.3-11.0 10^3/uL Red Blood Count 5.16 4.30-5.52 10^6/uL Hemoglobin 14.3 13.3-17.7 g/dL Hematocrit 43 40-54 % Mean Corpuscular Volume 84 80-99 fL Mean Corpuscular Hemoglobin 28 25-34 pg Mean Corpuscular Hemoglobin Concent 33 32-36 g/dL Red Cell Distribution Width 13.9 10.0-14.5 % Platelet Count 183 130-400 10^3/uL Mean Platelet Volume 13.5 H 9.0-12.2 fL Immature Granulocyte % (Auto) 0 % Neutrophils (%) (Auto) 58 42-75 % Lymphocytes (%) (Auto) 30 12-44 % Monocytes (%) (Auto) 8 0-12 % Eosinophils (%) (Auto) 3 0-10 % Basophils (%) (Auto) 1 0-10 % Neutrophils # (Auto) 3.0 1.8-7.8 10^3/uL Lymphocytes # (Auto) 1.6 1.0-4.0 10^3/uL Monocytes # (Auto) 0.4 0.0-1.0 10^3/uL Eosinophils # (Auto) 0.2 0.0-0.3 10^3/uL Basophils # (Auto) 0.0 0.0-0.1 10^3/uL Immature Granulocyte # (Auto) 0.0 0.0-0.1 10^3/uL Percent Immature Platelet Fraction 14.3 H 0.0-7.6 % Prothrombin Time 13.8 12.2-14.7 SEC INR Comment 1.0 0.8-1.4 Activated Partial Thromboplast Time 27 24-35 SEC D-Dimer <= 0.27 0.00-0.49 UG/ML Sodium Level 142 135-145 MMOL/L Potassium Level 3.6 3.6-5.0 MMOL/L Chloride Level 108 H 98-107 MMOL/L Carbon Dioxide Level 25 21-32 MMOL/L Anion Gap 9 5-14 MMOL/L Blood Urea Nitrogen 10 7-18 MG/DL Creatinine 0.90 0.60-1.30 MG/DL Estimat Glomerular Filtration Rate 117 BUN/Creatinine Ratio 11 Glucose Level 124 H 70-105 MG/DL Calcium Level 8.9 8.5-10.1 MG/DL Corrected Calcium 8.7 8.5-10.1 MG/DL Magnesium Level 2.2 1.6-2.4 MG/DL Total Bilirubin 0.5 0.1-1.0 MG/DL Aspartate Amino Transf (AST/SGOT) 20 5-34 U/L Alanine Aminotransferase (ALT/SGPT) 38 0-55 U/L Alkaline Phosphatase 73 40-136 U/L Total Creatine Kinase 197 30-200 U/L Creatine Kinase MB 1.1 <6.6 NG/ML Myoglobin 43.9 10.0-92.0 NG/ML Troponin I < 0.028 <0.028 NG/ML B-Type Natriuretic Peptide 40.9 <100.0 PG/ML Total Protein 7.3 6.4-8.2 GM/DL Albumin 4.2 3.2-4.5 GM/DL Thyroid Stimulating Hormone (TSH) 3.10 0.35-4.94 UIU/ML Smear Scan YES My Orders Orders - NII MORELOS APRN Ekg Tracing (06/26/22 18:01) Cbc With Automated Diff (06/26/22 18:35) Magnesium (06/26/22 18:35) Chest 1 View, Ap/Pa Only (06/26/22 18:35) Comprehensive Metabolic Panel (06/26/22 18:35) Myoglobin Serum (06/26/22 18:35) Protime With Inr (06/26/22 18:35) Partial Thromboplastin Time (06/26/22 18:35) O2 (06/26/22 18:35) Monitor-Rhythm Ecg Trace Only (06/26/22 18:35) Ed Iv/Invasive Line Start (06/26/22 18:35) Creatine Kinase (06/26/22 18:35) Creatine Kinase Mb (06/26/22 18:35) Bnp Vick (06/26/22 18:35) Fibrin Degradation Products (06/26/22 18:35) Troponin I [place] (06/26/22 18:35) Thyroid Stimulating Hormone (06/26/22 18:35) Vital Signs/I&O 06/26/22 06/26/22 18:09 19:31 Temp 36.3 36.3 Pulse 70 65 Resp 20 18 B/P (MAP) 178/98 (124) 156/94 Pulse Ox 97 95 O2 Delivery Room Air Room Air Blood Pressure Mean: 124 Progress Progress Note : Progress Note Patient examined no acute distress. Vital signs are stable. No active chest pain at this time. EKG sinus rhythm, 65 no acute ischemic changes appreciated. Has a history of chronic persistent chest wall pain, has had multiple emergency department visits with negative cardiac features. He did have a cardiac cath September 22, 2019 with no intervention. Report of V-fib during cardiac cath. Does have a history of hypertension, hyperlipidemia, coronary artery disease, obesity. No alcohol tobacco or illicit drug use reported. 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 Discussion noted ventricular fibrillation during initial angiogram and he follows with Dr. Fulton. Will initiate cardiopulmonary work-up today given significant cardiac history differential includes non-STEMI, CHF, pneumonia, less likely pneumothorax, cardiac tamponade, pericarditis. Chest x-ray negative for consolidation, pleural effusion, pneumothorax. Unremarkable chest x-ray. CBC reviewed and is grossly unremarkable, WBC 5.1, hemoglobin 14.3, hematocrit 43, platelet 183, CMP shows sodium 142, potassium 3.6, chloride 108, CO2 25, creatinine 0.9, BUN 10, cardiac profile negative troponin, myoglobin 43.9, CK-MB 1.1, BNP 40.9, D-dimer negative less than 0.27. Given symptom onset started at 9 AM this morning no additional episodes and no active chest pain at this time no repeat troponin performed. Discussed that he may be having intermittent cardiac arrhythmia would like to have him follow-up with his primary care provider or with cardiology for referral of cardiac Holter monitor. Discussed returning to the emergency department if he has any persistent, recurrent, new chest pain or shortness of breath. Verbalized understanding. Discharge plan reviewed and he is agreeable with plan. Discharged home in stable condition. Initial ECG Impression Date: May 29, 2022 Initial ECG Impression Time: 18:15 Initial ECG Rate: 65 Initial ECG Rhythm: Normal Sinus Initial ECG Intervals: Normal Initial ECG Impression: Nonspecific Changes Initial ECG Comparisson: Unchanged Diagnostic Imaging Diagonstic Imaging: Xray Plain Films/CT/US/NM/MRI: chest Comments [facility] [place] [place] NAME: POPERONNI Ashlyn [facility] REC#: [id number] PT STATUS: REG ER : 1990 PHYSICIAN: NII MORELOS SCALLOP RAKER ADMIT DATE: 06/26/22/ER Signed Date of Exam:06/26/22 CHEST 1 VIEW, AP/PA ONLY EXAMINATION: Chest 1 view HISTORY: Chest pain COMPARISON: 03/16/2022 FINDINGS: Heart size and pulmonary vasculature are normal. The lungs are clear without consolidation, pleural effusion, or pneumothorax. The osseous structures are intact. IMPRESSION: 1. No acute radiographic abnormality in the chest. Dictated by: Dictated on workstation # [id number] Dict: 06/26/226 Trans: 06/26/221901 [facility] [phone] Interpreted by: CARLITOS BUSTAMANTE DO Electronically signed by: CARLITOS BUSTAMANTE DO 06/26/221901 Reviewed: Reviewed by Me Departure Impression Primary Impression: Palpitations Disposition: 01 HOME, SELF-CARE Condition: Stable Departure-Patient Inst. Decision time for Depature: 19:14 Referrals: [facility] [place] [place] (PCP/Family) Primary Care Physician Patient Instructions: Palpitations (DC) Add. Discharge Instructions: Plan: 1. Follow-up with your primary care provider to order outpatient cardiac Holter monitor. 2. Make sure you are drinking plenty of fluids to stay hydrated. 3. Your cardiac work-up today was reassuring however if you have any additional chest pain, any new concerning or worsening symptoms please return to be evaluated. All discharge instructions reviewed with patient and/or family. Voiced understanding. NII MORELOS SCALLOP RAKER Jun 26, 2022 19:15
[2022-06-26 19:31] VITALS: BP 156/94
== END 2022-06-26 19:37 | disposition home or self-care (01) ==
LOC: EDUNIT# 17:58 → ER 18:01
DX: R00.2 Palpitations (principal); I10 Essential (primary) hypertension; E66.01 Morbid (severe) obesity due to excess calories; R07.89 Other chest pain; G89.29 Other chronic pain; Z68.43 Body mass index [BMI] 50.0-59.9, adult; Z86.79 Personal history of other diseases of the circulatory system
CPT/HCPCS: 36415; 71045; 80053; 82550; 82553; 83735; 83874; 83880; 84443; 84484; 85025; 85379; 85610; 85730; 93005; 93041

== ENCOUNTER 2023-02-17 14:16 | Emergency (ER) | payer SELFPAY ==
[~2023-02-17] VITALS: Ht 180 cm; Wt 206.0 kg
[2023-02-17] MEDS ORDERED: ASPIRIN 81 MG CHEWABLE TABLET PO ONE (14:30)
--- NOTE | 2023-02-17 14:31 | ED Chest Pain ---
General Chief Complaint: Chest Pain Stated Complaint: CHEST PAINS | SOB Nursing Triage Note: pt ambulates to 08 with c/o left sided chest pain that occured at work without any precipating events, pain described as sharp, intermitt. Pt reports having these episodes in the past. Pt has hx of htn and anxiety. Source: patient Exam Limitations: no limitations History of Present Illness Date Seen by Provider: Feb 17, 2023 Time Seen by Provider: 14:37 Initial Comments Patient is a 32-year-old male who presents ED left-sided chest pain. This occurred while at work. Patient states pain was around 1030 sharp stabbing pain without radiation. Lasted for about 1 to 2 minutes. Similar type pain in the past. Patient states over the past 2 or 3 days he has felt fatigued and weak. States he gets short of breath with exertion. No worsening shortness of breath with lying down. States he has a history of a heart cath performed by Dr. Fulton 2019 that showed nonobstructive coronary artery disease. Recommend baby aspirin, atorvastatin, metoprolol which he has been taking besides his aspirin. Patient reports a mild cough. Denies any nausea, vomiting or diarrhea or urinary symptoms. Denies abdominal pain. Patient reports history anxiety. Denies any recent travel surgeries. Denies any leg pain or swelling. Allergies and Home Medications Allergies Coded Allergies: No Known Drug Allergies (Unverified , 09/21/19) Patient Home Medication List Home Medication List Reviewed: Yes Atorvastatin Calcium (Lipitor) 10 Mg Tablet, 10 MG PO DAILY Prescribed by: SARAY FULTON on 09/22/19 0821 Cyclobenzaprine HCl (Cyclobenzaprine HCl) 10 Mg Tablet, 10 MG PO Q8H PRN for SPASMS Prescribed by: EMMETT RANGEL on 09/03/21 1239 Cyclobenzaprine HCl (Cyclobenzaprine HCl) 10 Mg Tablet, 10 MG PO Q8H PRN for SPASMS Prescribed by: NABIL LEBLANC on 12/13/212037 Meloxicam (Meloxicam) 15 Mg Tablet, 15 MG PO DAILY Prescribed by: NABIL LEBLANC on 12/13/212037 Ondansetron (Ondansetron Odt) 8 Mg Tab.rapdis, 8 MG PO Q8H PRN for nausea Prescribed by: REGINALDO MONZON on 03/27/21 1226 Pantoprazole Sodium (Protonix) 40 Mg Tablet.dr 40 MG PO DAILY Prescribed by: JOE DAVE on 05/30/211812 Sertraline HCl (Sertraline HCl) 25 Mg Tablet, 25 MG PO DAILY Prescribed by: GUIDO GIRALDO on 09/06/20 1447 Review of Systems Review of Systems Constitutional: No chills, No diaphoresis, No fever, No malaise, No weakness EENTM: No Double Vision, No Eye Pain Respiratory: Denies Cough; Shortness of Air Cardiovascular: Chest Pain Gastrointestinal: Denies Abdominal Pain, Denies Diarrhea, Denies Nausea, Denies Vomiting Genitourinary: Denies Burning, Denies Discharge, Denies Drainage, Denies Frequency Musculoskeletal: No back pain, No joint pain Skin: No change in color, No change in hair/nails All Other Systems Reviewed Negative Unless Noted: Yes Past Eiuksks-Ounnmk-Dalhkb Hx Immunizations Up To Date Tetanus Booster (TDap): Unknown First/Initial COVID19 Vaccinat: 02/18 Second COVID19 Vaccination Jim: 02/18 Third COVID19 Vaccination Date: 02/18 Seasonal Allergies Seasonal Allergies: No Past Medical History Surgery/Hospitalization HX: NON OBSTRUCTIVE CAD DX ABOUT 4 YRS AGO, HTN, HLD Surgeries: Yes (CARDIAC CATH 09/22/19-NO INTERVENTION ) Cardiac Respiratory: Yes Pneumonia Currently Using CPAP: No Currently Using BIPAP: No Cardiac: Yes (V-FIB DURING CARDIAC CATH. CHRONIC CHEST PAIN COMPLAINTS) High Cholesterol, Hypertension Neurological: Yes Headaches /Migraines Reproductive Disorders: No Genitourinary: Yes Kidney Stones Gastrointestinal: Yes Chronic Diarrhea, Irritable Bowel Musculoskeletal: No Endocrine: Yes (MORBID OBESITY) HEENT: Yes (POOR DENTITION) Cancer: No Psychosocial: Yes Anxiety Integumentary: No Blood Disorders: No Adverse Reaction/Blood Tranf: No Family Medical History CARDIAC CATH 09/22/[address] 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 Dominant right coronary artery with no obstructive disease, LAD is from the left coronary cusp with no obstructive disease 3. Normal left ventricular size, EF 50 percent 4. Normal aortic root DISCUSSION AND RECOMMENDATION: Patient had ventricular fibrillation during the initial angiogram yesterday, currently tolerated the procedure well. I will start him on Lipitor. Arrange for follow-up as an outpatient Physical Exam Vital Signs Vital Signs - First Documented 02/17/23 14:26 Temp 36.7 Pulse 84 Resp 18 B/P (MAP) 148/88 (108) Pulse Ox 100 O2 Delivery Room Air Capillary Refill : Less Than 3 Seconds Height, Weight, BMI Height: 5'11.00" Weight: 450lbs. oz. 204.760289kl; 63.00 BMI Method:Stated General Appearance: No Apparent Distress, WD/WN HEENT: PERRL/EOMI, TMs Normal, Normal ENT Inspection, Pharynx Normal Neck: Full Range of Motion, Normal Inspection, Non Tender, Supple Respiratory: Chest Non Tender, Lungs Clear, Normal Breath Sounds, No Accessory Muscle Use, No Respiratory Distress Cardiovascular: Regular Rate, Rhythm, No Edema, No Gallop, No JVD Gastrointestinal: Normal Bowel Sounds, No Organomegaly, No Pulsatile Mass, Non Tender Extremity: Normal Capillary Refill, Normal Inspection, Normal Range of Motion, Non Tender Neurologic/Psychiatric: Alert, Oriented x3, No Motor/Sensory Deficits, 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, 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 Skin: Normal Color, Warm/Dry Progress/Results/Core Measures Results/Orders Lab Results Laboratory Tests Test 02/17/23 14:20 02/17/23 15:04 02/17/23 15:23 Range/Units White Blood Count 6.9 4.3-11.0 10^3/uL Red Blood Count 5.02 4.30-5.52 10^6/uL Hemoglobin 14.0 13.3-17.7 g/dL Hematocrit 43 40-54 % Mean Corpuscular Volume 86 80-99 fL Mean Corpuscular Hemoglobin 28 25-34 pg Mean Corpuscular Hemoglobin Concent 32 32-36 g/dL Red Cell Distribution Width 13.6 10.0-14.5 % Platelet Count 196 130-400 10^3/uL Mean Platelet Volume 13.3 H 9.0-12.2 fL Immature Granulocyte % (Auto) 0 % Neutrophils (%) (Auto) 62 42-75 % Lymphocytes (%) (Auto) 28 12-44 % Monocytes (%) (Auto) 6 0-12 % Eosinophils (%) (Auto) 3 0-10 % Basophils (%) (Auto) 1 0-10 % Neutrophils # (Auto) 4.2 1.8-7.8 10^3/uL Lymphocytes # (Auto) 1.9 1.0-4.0 10^3/uL Monocytes # (Auto) 0.4 0.0-1.0 10^3/uL Eosinophils # (Auto) 0.2 0.0-0.3 10^3/uL Basophils # (Auto) 0.1 0.0-0.1 10^3/uL Immature Granulocyte # (Auto) 0.0 0.0-0.1 10^3/uL Percent Immature Platelet Fraction 15.7 H 0.0-7.6 % Prothrombin Time 13.5 12.2-14.7 SEC INR Comment 1.0 0.8-1.4 Activated Partial Thromboplast Time 28 24-35 SEC Sodium Level 141 135-145 MMOL/L Potassium Level 3.7 3.6-5.0 MMOL/L Chloride Level 105 98-107 MMOL/L Carbon Dioxide Level 29 21-32 MMOL/L Anion Gap 7 5-14 MMOL/L Blood Urea Nitrogen 12 7-18 MG/DL Creatinine 1.00 0.60-1.30 MG/DL Estimat Glomerular Filtration Rate 103 BUN/Creatinine Ratio 12 Glucose Level 119 H 70-105 MG/DL Calcium Level 9.0 8.5-10.1 MG/DL Corrected Calcium 9.0 8.5-10.1 MG/DL Magnesium Level 2.2 1.6-2.4 MG/DL Total Bilirubin 0.6 0.1-1.0 MG/DL Aspartate Amino Transf (AST/SGOT) 24 5-34 U/L Alanine Aminotransferase (ALT/SGPT) 41 0-55 U/L Alkaline Phosphatase 78 40-136 U/L Myoglobin 47.9 10.0-92.0 NG/ML Troponin I < 0.028 <0.028 NG/ML B-Type Natriuretic Peptide 27.1 <100.0 PG/ML Total Protein 7.4 6.4-8.2 GM/DL Albumin 4.0 3.2-4.5 GM/DL Lipase 21 8-78 U/L Urine Opiates Screen NEGATIVE NEGATIVE Urine Oxycodone Screen NEGATIVE NEGATIVE Urine Methadone Screen NEGATIVE NEGATIVE Urine Barbiturates Screen NEGATIVE NEGATIVE Ur Tricyclic Antidepressants Screen NEGATIVE NEGATIVE Urine Phencyclidine Screen NEGATIVE NEGATIVE Urine Amphetamines Screen NEGATIVE NEGATIVE Urine Methamphetamines Screen NEGATIVE NEGATIVE Urine Benzodiazepines Screen NEGATIVE NEGATIVE Urine Cocaine Screen NEGATIVE NEGATIVE Urine Cannabinoids Screen NEGATIVE NEGATIVE Influenza Type A (RT-PCR) Not Detected Not Detecte Influenza Type B (RT-PCR) Not Detected Not Detecte SARS-CoV-2 RNA (RT-PCR) Not Detected Not Detecte My Orders Orders - MAO FRANKEL PA Cbc And Automated Diff (02/17/23 14:29) Magnesium (02/17/23 14:29) Chest 1 View, Ap/Pa Only (02/17/23 14:29) Ekg Tracing (02/17/23 14:29) Comprehensive Metabolic Panel (02/17/23 14:29) Myoglobin Serum (02/17/23 14:29) Protime With Inr (02/17/23 14:29) Partial Thromboplastin Time (02/17/23 14:29) O2 (02/17/23 14:29) Monitor-Rhythm Ecg Trace Only (02/17/23 14:29) Ed Iv/Invasive Line Start (02/17/23 14:29) Lipase (02/17/23 14:29) Bnp Vick (02/17/23 14:29) Troponin I [place] (02/17/23 14:29) Aspirin Chewable Tablet (Aspirin Chewabl (02/17/23 14:30) Drug Screen Stat (Urine) (02/17/23 14:31) Covid 19 Inhouse Test (02/17/23 14:40) Influenza A And B By Pcr (02/17/23 14:40) Medications Given in ED Current Medications Medications Dose Ordered Sig/Vahid Route Start Time Stop Time Status Last Admin Dose Admin Aspirin 324 mg ONCE ONCE PO 02/17/23 14:30 02/17/23 14:31 DC 02/17/23 14:47 324 MG Vital Signs/I&O 02/17/23 02/17/23 14:26 16:14 Temp 36.7 Pulse 84 77 Resp 18 16 B/P (MAP) 148/88 (108) 131/76 Pulse Ox 100 97 O2 Delivery Room Air Room Air Blood Pressure Mean: 108 Comment Sinus rhythm with sinus arrhythmia. 71 bpm, QRS duration 108 MS, QTc 403 MS. Departure Communication (PCP) Patient is a 32-year-old male with a history of coronary artery disease, diabetes, dyslipidemia who presents to ED for chest pain. Shortness of breath fatigue weakness left-sided chest pain. Had episode of left sided chest pain today while at work lasted for 1-2 minute. Currently asymptomatic. Shortness of breath with exertion. Patient is morbid obese. Several visits in the past with similar type presentation. Differential diagnosis, ACS, anxiety, pericarditis, pneumonia, myocarditis. No flulike symptoms. Vital signs remained stable no pain with eating. denies of any abdominal pain.. EKG was obtained which showed sinus rhythm without evidence of ST elevation or depression, A-fib or a flutter. CBC, CMP was grossly unremarkable. Normal troponin and BNP. Patient Was not tachycardic or hypoxic recent travels or surgeries suggesting concern for PE. Chest x-ray was negative for pneumonia, pneumothorax, mediastinal widening. Did receive a full aspirin. Remained asymptomatic. Vital signs remained stable. No specific chest wall tenderness. He has no abdominal tenderness on exam. Patient had a cardiac cath [place] [address] Fulton which showed coronary artery disease with no significant ischemic changes. Has not been taking his baby aspirin. Patient with a heart score of 3 secondary to risk factors. Low suspicion for a cardiac event. Due to reassu ring lab work, EKG will recommend outpatient cardiac follow-up. Provided follow-up to Dr. Fulton. If any worsening chest pain or shortness of breath return back to ED. Impression Primary Impression: Chest pain Disposition: HOME, SELF-CARE Condition: Stable Departure-Patient Inst. Decision time for Depature: 15:53 Referrals: [facility] (PCP/Family) Primary Care Physician SARAY FULTON MD Patient Instructions: Chest Pain, Adult ED Add. Discharge Instructions: Continue with your medication. Continue with baby aspirin. 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 All discharge instructions reviewed with patient and/or family. Voiced understanding. MAO FRANKEL Feb 17, 2023 14:30
[2023-02-17 14:35] LABS: LYMPHOCYTES # (AUTO) 1.9 10^3/uL (1.0-4.0)
[2023-02-17 14:37] LABS: BASOPHILS # (AUTO) 0.1 10^3/uL (0.0-0.1); BASOPHILS % (AUTO) 1 % (0-10); EOSINOPHILS # (AUTO) 0.2 10^3/uL (0.0-0.3); EOSINOPHILS % (AUTO) 3 % (0-10); HEMATOCRIT 43 % (40-54); LYMPHOCYTES % (AUTO) 28 % (12-44); MEAN CORPUSCULAR HEMOGLOBIN 28 pg (25-34); MEAN CORPUSCULAR HGB CONC 32 g/dL (32-36); MEAN CORPUSCULAR VOLUME 86 fL (80-99); MEAN PLATELET VOLUME 13.3 fL (9.0-12.2); MONOCYTES # (AUTO) 0.4 10^3/uL (0.0-1.0); MONOCYTES % (AUTO) 6 % (0-12); NEUTROPHILS # (AUTO) 4.2 10^3/uL (1.8-7.8); NEUTROPHILS % (AUTO) 62 % (42-75); PLATELET COUNT 196 10^3/uL (130-400); WHITE BLOOD COUNT 6.9 10^3/uL (4.3-11.0)
[2023-02-17 14:43] LABS: CHLORIDE 105 MMOL/L (98-107); POTASSIUM 3.7 MMOL/L (3.6-5.0); SODIUM 141 MMOL/L (135-145)
[2023-02-17 14:45] LABS: GLUCOSE 119 MG/DL (70-105); PROTHROMBIN TIME PATIENT 13.5 SEC (12.2-14.7)
[2023-02-17 14:46] LABS: TOTAL PROTEIN 7.4 GM/DL (6.4-8.2)
[2023-02-17 14:47] LABS: BILIRUBIN,TOTAL 0.6 MG/DL (0.1-1.0); CARBON DIOXIDE 29 MMOL/L (21-32)
[2023-02-17 14:49] LABS: ALKALINE PHOSPHATASE 78 U/L (40-136); GFR ESTIMATED 103
[2023-02-17 14:50] LABS: BUN/CREATININE RATIO 12
[2023-02-17 14:52] LABS: ALANINE AMINOTRANSFERASE 41 U/L (0-55)
[2023-02-17 14:53] LABS: MAGNESIUM 2.2 MG/DL (1.6-2.4)
[2023-02-17 14:54] LABS: LIPASE 21 U/L (8-78)
--- NOTE | 2023-02-17 15:04 | Diagnostic Imaging Report ---
CLINICAL INDICATION: The patient complains of left-sided chest pain that occurred at work without anticipating events. The patient's pain is sharp and intermittent. Patient has history of hypertension and anxiety. EXAM: Portable chest x-ray upright view. COMPARISON: Chest x-ray dated 06/26/2022. FINDINGS: Lungs/pleura: Lungs are clear. There is no pneumothorax. There is no pleural effusion. Mediastinum: Unremarkable. Pulmonary vasculature: Unremarkable. Heart: Unremarkable. Bones/extrathoracic soft tissue: Unremarkable. IMPRESSION: There is no radiographic evidence of acute cardiopulmonary process. Dictated by: Dictated on workstation # [id number]
[2023-02-17 15:34] LABS: AMPHETAMINE SCREEN, URINE NEGATIVE (NEGATIVE); BARBITURATE SCREEN URINE NEGATIVE (NEGATIVE); CANNABINOID SCREEN, URINE NEGATIVE (NEGATIVE); COCAINE SCREEN URINE NEGATIVE (NEGATIVE); METHADONE STAT NEGATIVE (NEGATIVE); OPIATE SCREEN URINE NEGATIVE (NEGATIVE); OXYCODONE STAT NEGATIVE (NEGATIVE); TRICYCLIC ANTIDEPRESSANTS SCRE NEGATIVE (NEGATIVE)
[2023-02-17 16:14] VITALS: BP 131/76
== END 2023-02-17 16:14 | disposition home or self-care (01) ==
LOC: EDUNIT# 14:16 → ER 14:18
DX: R07.89 Other chest pain (principal); E66.01 Morbid (severe) obesity due to excess calories; Z68.44 Body mass index [BMI] 60.0-69.9, adult; Z98.61 Coronary angioplasty status
CPT/HCPCS: 36415; 71045; 80053; 80306; 83690; 83735; 83874; 83880; 84484; 85025; 85610; 85730; 87636; 93005; 93041